=== PATIENT | male | born 1955 | race Caucasian/White ===

== ENCOUNTER 2016-10-11 22:34 | Emergency (ER) | payer MEDICARE, MEDICAID ==
--- NOTE | 2016-10-11 22:42 | ER Document Report ---
ED General - General Stated Complaint: CATHETER PROBLEM Time Seen by Provider: 10/11/16 22:40 Notes: Patient is a 61-year-old male history of quadriplegia and Vyas catheter dependence who presents due to his Vyas catheter being displaced in the nursing facility being unable to replace the catheter. He denies any acute complaints. No abdominal pain, nausea or vomiting. No penile injury or pain. TRAVEL OUTSIDE OF THE [place] IN LAST 30 DAYS: No - Related Data Allergies/Adverse Reactions: Sulfa (Sulfonamide Antibiotics) Allergy (Mild, Verified 07/11/14 14:05) Hives, Itching Past Medical History - General Information source: Patient - Social History Smoking Status: Never Smoker Frequency of alcohol use: None Drug Abuse: None Lives with: [facility] Family History: Reviewed & Not Pertinent - Past Medical History Cardiac Medical History: Denies: Hx Congestive Heart Failure, Hx DVT, Hx Heart Attack, Hx Hypercholesterolemia, Hx Hypertension, Hx Pulmonary Embolism Pulmonary Medical History: Reports: Hx Pneumonia Denies: Hx Asthma, Hx COPD Neurological Medical History: Denies: Hx Cerebrovascular Accident, Hx Seizures Endocrine Medical History: Reports: Hx Diabetes Mellitus Type 2. Denies: Hx Hyperthyroidism, Hx Hypothyroidism Renal/ Medical History: Reports: Hx End Stage Renal Disease - right kidney, chronic UTI GI Medical History: Reports: Hx Gastroesophageal Reflux Disease. Denies: Hx Cirrhosis, Hx Hepatitis, Hx Hiatal Hernia, Hx Ulcer Musculoskeltal Medical History: Denies Hx Arthritis, Reports Hx Muscle Weakness , Reports Hx Musculoskeletal Deformity - Contractures to all four extremities, Reports Hx Musculoskeletal Trauma - Right distal femur condyle fractures Skin Medical History: Reports Hx Psoriasis Psychiatric Medical History: Reports: Hx Depression - mild; no suicidal/ homicidal ideation Traumatic Medical History: Reports: Hx Spine Fracture - Cervical spine fracture in the 1980s Infectious Medical History: Denies: Hx Hepatitis Past Surgical History: Reports: Hx Orthopedic Surgery - Cervical fusion, Hx Urinary Tract Surgery - bladder stent placed and removed. Denies: Hx Open Heart Surgery, Hx Pacemaker - Immunizations Hx Diphtheria, Pertussis, Tetanus Vaccination: Yes Hx Pneumococcal Vaccination: 08/11/13 Review of Systems - Review of Systems Notes: Constitutional: Negative for fever. HENT: Negative for sore throat. Eyes: Negative for visual changes. Cardiovascular: Negative for chest pain. Respiratory: Negative for shortness of breath. Gastrointestinal: Negative for abdominal pain, vomiting or diarrhea. Genitourinary: Positive for Vyas catheter displacement Musculoskeletal: Negative for back pain. Skin: Negative for rash. Neurological: Negative for headaches, weakness or numbness. 10 point ROS negative except as marked above and in HPI. Physical Exam - Vital signs Notes: PHYSICAL EXAMINATION: GENERAL: Well-appearing, well-nourished and in no acute distress. HEAD: Atraumatic, normocephalic. EYES: sclera anicteric, conjunctiva are normal. ENT: Moist mucous membranes. NECK: Normal range of motion LUNGS: Normal work of breathing HEART: 2+ radial pulses bilaterally PSYCH: Normal mood, normal affect. SKIN: Warm, Dry, normal turgor Course - Re-evaluation Re-evalutation: 10/11/16 22:41 Patient presents from a [place] [facility] as they were unable to successfully exchange his Vyas catheter. He denies any acute complaints. Vitals show hypertension at time of arrival are otherwise unremarkable. He has no abdominal pain. Vyas catheter exchanged. He will be discharged back to the nursing facility with return precautions. Discharge - Discharge Clinical Impression: Vyas catheter problem Qualifiers: Encounter type: initial encounter Qualified Code(s): T83.9XXA - Unspecified complication of genitourinary prosthetic device, implant and graft, initial encounter Condition: Good Disposition: HOME, SELF-CARE Additional Instructions: Please return to the emergency room immediately if you experience any concerning symptoms including high fevers, severe headache, chest pain, difficulty breathing, abdominal pain, slurred speech, numbness or weakness in your arms or legs, or any other symptom that concerns you.
== END 2016-10-11 23:18 | disposition home or self-care (01) ==
LOC: ER 22:34
DX: T83.9XXA Unspecified complication of genitourinary prosthetic device, implant and graft, initial encounter (principal)
CPT/HCPCS: 51702; 99283

== ENCOUNTER 2016-11-20 11:24 | Emergency (ER) | payer MEDICARE, MEDICAID ==
[2016-11-20 12:40] LABS: ABSOLUTE EOSINOPHILS # (AUTO) 0.4 10^3/uL (0.0-0.6); ABSOLUTE LYMPHOCYTES (AUTO) 1.4 10^3/uL (0.5-4.7); ABSOLUTE MONOCYTES (AUTO) 0.5 10^3/uL (0.1-1.4); ABSOLUTE NEUT (AUTO) 3.1 10^3/uL (1.7-8.2); BASOPHILS % (AUTO) 0.5 % (0-2); EOSINOPHILS % (AUTO) 6.8 % (0-6); HEMATOCRIT 33.6 % (37.9-51.0); HEMOGLOBIN 10.9 g/dL (13.5-17.0); HGB HCT DIFFERENCE -0.9; LYMPHOCYTES % (AUTO) 26.1 % (13-45); MEAN CORPUSCULAR HEMOGLOBIN 25.2 pg (27.0-33.4); MEAN CORPUSCULAR HGB CONC 32.3 g/dL (32.0-36.0); MEAN CORPUSCULAR VOLUME 78 fl (80-97); MONOCYTES % (AUTO) 8.5 % (3-13); RED BLOOD COUNT 4.32 10^6/uL (4.35-5.55); RED CELL DISTRIBUTION WIDTH 16.7 % (11.5-14.0); SEGMENTED NEUTROPHILS % (AUTO) 58.1 % (42-78); WHITE BLOOD COUNT 5.4 10^3/uL (4.0-10.5)
[2016-11-20 13:07] LABS: ALANINE AMINOTRANSFERASE 24 U/L (21-72); ALBUMIN 3.5 g/dL (3.5-5.0); ALKALINE PHOSPHATASE 97 U/L (38-126); ANION GAP 12 (5-19); ASPARTATE AMINO TRANSFERASE 15 U/L (17-59); BILIRUBIN,DIRECT 0.3 mg/dL (0.0-0.4); BILIRUBIN,TOTAL 0.4 mg/dL (0.2-1.3); BLOOD UREA NITROGEN 18 mg/dL (7-20); CALCIUM 9.5 mg/dL (8.4-10.2); CARBON DIOXIDE 22 mmol/L (22-30); CHLORIDE 107 mmol/L (98-107); CREATININE RESULT 0.89 mg/dL (0.52-1.25); GLUCOSE 271 mg/dL (75-110); POTASSIUM 4.3 mmol/L (3.6-5.0); SODIUM 140.7 mmol/L (137-145); TOTAL PROTEIN 6.9 g/dL (6.3-8.2)
--- NOTE | 2016-11-20 13:46 | ER Document Report ---
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 Patient does have a history of diabetes. He is a resident at [facility] and states that he is usually up watching TV late at night. The staff came in at 5 AM to give him medicines and check vital signs and states that he was "loopy". The patient states that he was still kind of "out of it" when they woke him up at 8 a.m. The patient states he feels fine now and is back to his baseline, he said he was tired this morning and that he did state up late. He denies any pain, fever or shortness of breath. TRAVEL OUTSIDE OF THE [place] IN LAST 30 DAYS: No - HPI Onset: Just prior to arrival Onset/Duration: Gradual Quality of pain: No pain Severity: None Pain Level: Denies Associated symptoms: denies: Chest pain, Fever Exacerbated by: Denies Relieved by: Denies Similar symptoms previously: No Recently seen / treated by doctor: No - Related Data Allergies/Adverse Reactions: Sulfa (Sulfonamide Antibiotics) Allergy (Mild, Verified 11/20/16 11:47) Hives, Itching Home Medications: Current Home Medications Cetirizine HCl [Zyrtec] 10 mg PO DAILY 11/20/16 [History] Lactulose [Cephulac Syrup 20 gm/30 ml Udcup] 15 gm PO QID 11/20/16 [History] Past Medical History - General Information source: Patient - Social History Smoking Status: Never Smoker Cigarette use (# per day): No Chew tobacco use (# tins/day): No Frequency of alcohol use: None Drug Abuse: None Lives with: [facility] Family History: Reviewed & Not Pertinent Patient has suicidal ideation: No Patient has homicidal ideation: No - Past Medical History Cardiac Medical History: Denies: Hx Congestive Heart Failure, Hx DVT, Hx Heart Attack, Hx Hypercholesterolemia, Hx Hypertension, Hx Pulmonary Embolism Pulmonary Medical History: Reports: Hx Pneumonia Denies: Hx Asthma, Hx COPD Neurological Medical History: Denies: Hx Cerebrovascular Accident, Hx Seizures Endocrine Medical History: Reports: Hx Diabetes Mellitus Type 2. Denies: Hx Hyperthyroidism, Hx Hypothyroidism Renal/ Medical History: Reports: Hx End Stage Renal Disease - right kidney, chronic UTI GI Medical History: Reports: Hx Gastroesophageal Reflux Disease. Denies: Hx Cirrhosis, Hx Hepatitis, Hx Hiatal Hernia, Hx Ulcer Musculoskeltal Medical History: Reports Hx Arthritis, Reports Hx Muscle Weakness , Reports Hx Musculoskeletal Deformity - Contractures to all four extremities, Reports Hx Musculoskeletal Trauma - Right distal femur condyle fractures Skin Medical History: Reports Hx Psoriasis Psychiatric Medical History: Reports: Hx Depression - mild; no suicidal/ homicidal ideation Traumatic Medical History: Reports: Hx Spine Fracture - Cervical spine fracture in the 1980s Infectious Medical History: Denies: Hx Hepatitis Past Surgical History: Reports: Hx Orthopedic Surgery - Cervical fusion, Hx Urinary Tract Surgery - bladder stent placed and removed. Denies: Hx Open Heart Surgery, Hx Pacemaker - Immunizations Hx Diphtheria, Pertussis, Tetanus Vaccination: Yes Hx Pneumococcal Vaccination: 08/11/13 Review of Systems - Review of Systems Constitutional: No symptoms reported EENT: No symptoms reported Cardiovascular: No symptoms reported Respiratory: No symptoms reported Gastrointestinal: No symptoms reported Genitourinary: No symptoms reported Male Genitourinary: No symptoms reported Musculoskeletal: No symptoms reported Skin: No symptoms reported Hematologic/Lymphatic: No symptoms reported Neurological/Psychological: See HPI Physical Exam - Vital signs Vitals: Resp 18 11/20/16 11:48 Notes: Physical exam: GENERAL: 61-year-old man, alert and oriented 3, pleasant, no acute distress HEAD: Atraumatic, normocephalic. EYES: Pupils equal round and reactive to light, extraocular movements intact, sclera anicteric, conjunctiva are normal. ENT: TMs normal, nares patent, oropharynx clear without exudates. Moist mucous membranes. NECK: Normal range of motion, supple without lymphadenopathy or JVD. LUNGS: Breath sounds clear to auscultation bilaterally and equal. No wheezes rales or rhonchi. HEART: Regular rate and rhythm without murmurs, rubs or gallops. ABDOMEN: Soft, normoactive bowel sounds. No tenderness to palpation. No guarding, no rebound. No masses appreciated. EXTREMITIES: Normal range of motion, no pitting or edema. No clubbing or cyanosis. NEUROLOGICAL: Incomplete quadriplegia, he does have movement of the left upper extremity, left so in the right upper extremity. PSYCH: Normal mood, normal affect. SKIN: Warm, Dry, normal turgor, no rashes or lesions noted. Course - Vital Signs Vital signs: Temp Pulse Resp BP Pulse Ox 97.3 F 56 L 18 122/82 100 11/20/16 14:22 11/20/16 14:22 11/20/16 14:22 11/20/16 14:22 11/20/16 14:22 - Laboratory Result Diagrams: 11/20/16 12:16 11/20/16 12:16 Laboratory results interpreted by me: 11/20/16 11/20/16 12:16 12:16 RBC 4.32 L Hgb 10.9 L Hct 33.6 L MCV 78 L MCH 25.2 L RDW 16.7 H Eosinophils % 6.8 H Glucose 271 H AST 15 L Discharge - Discharge Clinical Impression: Generalized weakness Condition: Stable Disposition: HOME, SELF-CARE Additional Instructions: Your vital signs have been stable, your heart rhythm has been regular on monitor. Your blood counts, kidney function, electrolytes were normal. Recommendations Current medicines: Return to the emergency room for any pain, shortness of breath or any concerns or to getting worse. Follow-up with your primary care doctor as planned Referrals: WODOY RANKIN MD [Primary Care Provider] - Follow up as needed
[2016-11-20 14:24] VITALS: BP 122/82
== END 2016-11-20 14:56 | disposition home or self-care (01) ==
LOC: ER 11:24
DX: R53.1 Weakness (principal); R42 Dizziness and giddiness; E11.9 Type 2 diabetes mellitus without complications; G82.54 Quadriplegia, C5-C7 incomplete; Z79.899 Other long term (current) drug therapy
CPT/HCPCS: 36415; 80053; 85025; 99285

== ENCOUNTER 2019-08-16 07:02 | Observation (INO) | payer MEDICARE, MEDICAID ==
--- NOTE | 2019-08-16 07:22 | ER Document Report ---
ED Neuro Symptoms/Deficit - General Chief Complaint: Altered Mental Status Stated Complaint: ALTERED MENTAL STATUS Time Seen by Provider: 08/16/19 07:12 Primary Care Provider: IVELISSE RANKIN MD [Primary Care Provider] - Follow up as needed Notes: HPI: 63-year-old male who presents today from [facility] secondary to an episode last evening where he was slightly "altered" for an unknown amount of time according to EMS. Supposedly this repeated this morning. Patient has been nonverbal since this morning. Unknown time of onset. EMS denies any mention of nausea, vomiting, fevers, or diarrhea. Patient does not walk at baseline. History of a stroke with right-sided weakness. Patient has a Vyas catheter at baseline. Patient supposedly is full code. I was able to call the [facility] care [facility] and speak to 1 of the care provider Yana. They state that supposedly sometime between 3 and 11 yesterday he started to have some "flailing motion" of his left arm and was not speaking. This supposedly "spontaneously resolved". Patient had his eyes open with no obvious loss of consciousness during the event. He was last known well again around 2 AM and then this morning when they went to give him medications he again was not speaking. Patient normally is able to hold a conversation according to staff but does not walk at baseline with some right-sided weakness. They state the patient has had no fevers, vomiting, or diarrhea. ROS: See HPI All other review of systems reviewed and otherwise negative Reviewed vital signs and nursing note as charted by RN. PHYSICAL EXAM: CONSTITUTIONAL: Alert but responds only in one-word answers HEAD: Normocephalic; atraumatic EYES: PERRL; full extraocular range of motion ENT: Normal nose; no rhinorrhea; moist mucous membranes; pharynx without lesions noted NECK: Supple without meningismus; carotid bruit; non-tender; no cervical lymphadenopathy, no masses CARD: Regular rate and rhythm; no murmurs; symmetric distal pulses RESP: Normal chest excursion without splinting or tachypnea; breath sounds clear and equal bilaterally; no wheezes, no rhonchi, no rales ABD/GI: Normal bowel sounds; non-distended; soft, non-tender; no palpable organomegaly or masses BACK: The back appears normal and is non-tender to palpation; patient has minimal skin breakdown around the lumbar region with minimal surrounding erythema EXT: Right arm is contracted; 1+ pitting edema to bilateral shins with heel cups in place with no appreciable skin breakdown SKIN: Mild scrotal erythema with no perineal induration or fluctuance NEURO: Difficult to get a complete neuro exam given that the patient does not follow commands. Patient's right arm is contracted. No obvious movement of the right lower extremity. Patient is able to move his left arm in all directions with no obvious weakness appreciated. Patient is able to lift his left leg secondary to pain but again does not follow commands appropriately PSYCH: The patient's mood and manner are appropriate. Grooming and personal hygiene are appropriate. TRAVEL OUTSIDE OF THE [place] IN LAST 30 DAYS: No - Related Data Allergies/Adverse Reactions: Sulfa (Sulfonamide Antibiotics) Allergy (Mild, Verified 11/20/16 11:47) Hives, Itching Past Medical History - Social History Smoking Status: Unknown if Ever Smoked Family History: Reviewed & Not Pertinent - Past Medical History Cardiac Medical History: Denies: Hx Congestive Heart Failure, Hx DVT, Hx Heart Attack, Hx Hypercholest erolemia, Hx Hypertension, Hx Pulmonary Embolism Pulmonary Medical History: Reports: Hx Pneumonia Denies: Hx Asthma, Hx COPD Neurological Medical History: Denies: Hx Cerebrovascular Accident, Hx Seizures Endocrine Medical History: Reports: Hx Diabetes Mellitus Type 2. Denies: Hx Hyperthyroidism, Hx Hypothyroidism Renal/ Medical History: Reports: Hx End Stage Renal Disease - right kidney, chronic UTI GI Medical History: Reports: Hx Gastroesophageal Reflux Disease. Denies: Hx Cirrhosis, Hx Hepatitis, Hx Hiatal Hernia, Hx Ulcer Musculoskeletal Medical History: Reports Hx Arthritis, Reports Hx Muscle Weakness, Reports Hx Musculoskeletal Deformity - Contractures to all four extremities, Reports Hx Musculoskeletal Trauma - Right distal femur condyle fractures Skin Medical History: Reports Hx Psoriasis Psychiatric Medical History: Reports: Hx Depression - mild; no suicidal/homicidal ideation Traumatic Medical History: Reports: Hx Spine Fracture - Cervical spine fracture in the 1980s Infectious Medical History: Denies: Hx Hepatitis Past Surgical History: Reports: Hx Orthopedic Surgery - Cervical fusion, Hx Urin cahd Tract Surgery - bladder stent placed and removed. Denies: Hx Open Heart Surgery, Hx Pacemaker - Immunizations Hx Diphtheria, Pertussis, Tetanus Vaccination: Yes Hx Pneumococcal Vaccination: 08/11/13 Physical Exam - Vital signs Vitals: Temp Pulse Resp BP Pulse Ox 98.1 F 69 20 107/65 95 08/16/19 07:07 08/16/19 07:07 08/16/19 07:07 08/16/19 07:07 08/16/19 07:07 Course - Re-evaluation Re-evalutation: 08/16/19 07:21 Given the above history and physical examination, we will proceed with a stat CT scan/code stroke as well as obtain basic labs, EKG, cardiac labs, and a t roponin. Patient appears to have a modified Kathy scale score of 4-5. Patient's NIH score upon arrival is 21/22. Labs, EKG, coagulation profile, and stat CT scan has been ordered. Given the modified Kathy scale score as discussed above, with the patient being out of the TPA window given that the patient's symptoms started intermittently between 3 PM and 11 PM yesterday, we will assess the CT scan for an obvious bleed or other acute intracranial pathology. Given the modified Gooding scale score, despite being here possibly within 22 hours, I do believe the patient is not a good candidate for extraction and I do not believe CTA of the head and cervical neck would be appropriate at this time. 08/16/19 07:44 EKG shows heart of 62, normal sinus rhythm, normal axis, no ST elevation or d epression 08/16/19 09:04 No change in neurologic status. We have provided rectal aspirin. Chemistry is pending. CT scan report as recorded. We will attempt to evaluate the chemistry and if unremarkable, will discuss with the hospitalist and the power of erisa attorney placement and disposition. I do believe that the patient requires admission but I am unsure whether it is necessary given the patient's baseline state to send to an outside stroke center whether the patient can be cared for you ukldeep ropriately. 08/16/19 10:24 I have called and spoken to the power of erisa attorney Mrs. Carrie Sotelo at [phone]. This is the patient's sister. I explained the full history and physical. She is comfortable with the patient staying at this location. - Vital Signs Vital signs: Temp Pulse Resp BP Pulse Ox 97.5 F 60 9 L 97/59 L 95 08/16/19 07:40 08/16/19 07:11 08/16/19 09:46 08/16/19 09:46 08/16/19 09:46 - Laboratory Result Diagrams: 08/16/19 07:55 08/16/19 07:55 Laboratory results interpreted by me: 08/16/19 08/16/19 08/16/19 07:47 07:55 07:55 Hgb 12.4 L Hct 36.8 L MCV 78 L MCH 26.3 L RDW 16.6 H Lymph % (Auto) 10.2 L Seg Neutrophils % 79.9 H BUN 29 H Glucose 123 H POC Glucose 117 H Discharge - Discharge Clinical Impression: Expressive aphasia Decubitus skin ulcer Qualifiers: Pressure injury location: contiguous region involving back and buttock Pressure injury stage: unstageable Laterality: unspecified laterality Qualified Code(s): L89.45 - Pressure ulcer of contiguous site of back, buttock and hip, unstageable Condition: Fair Disposition: ADMITTED OBSERVATION Admitting Provider: Brooks (Hospitalist) Unit Admitted: Medical Floor Referrals: IVELISSE RANKIN MD [Primary Care Provider] - Follow up as needed
--- NOTE | 2019-08-16 07:55 | RADIOLOGY REPORT (SQ) ---
EXAM DESCRIPTION: CT HEAD WITHOUT IV CONTRAST COMPLETED DATE/TME: 08/16/2019 07:22 CLINICAL HISTORY: MP; aphasia COMPARISON: None available TECHNIQUE: Axial CT of the head obtained from the skull apex to the skull base without contrast. FINDINGS: No acute intracranial hemorrhage identified. No mass, mass effect, shift of the midline, abnormal extra-axial fluid collection or CT evidence of acute ischemic change identified. The ventricular system and sulcal spaces are not enlarged. Scattered areas of hypodensity throughout the supratentorial white matter are nonspecific and may be related to chronic small vessel ischemic change. The visualized paranasal sinuses and the mastoids are clear. No skull fracture identified. Visualized orbits and globes are unremarkable. Atherosclerotic calcification of the intracranial internal carotid arteries. IMPRESSION: 1. No acute intracranial abnormality by CT criteria. This exam was performed according to our departmental dose-optimization program, which includes automated exposure control, adjustment of the mA and/or kV according to patient size and/or use of iterative reconstruction technique.
--- NOTE | 2019-08-16 08:08 | RADIOLOGY REPORT (SQ) ---
EXAM DESCRIPTION: X-ray single view chest. CLINICAL HISTORY: 63 years Male, AMS/SOB COMPARISON: Chest x-ray performed on 10/08/[address] chest performed on 05/27/2014. TECHNIQUE: Single portable x-ray view of the chest performed on 08/16/2019 at 7:27 AM FINDINGS: The lungs are well expanded. There is blunting of the right lateral costophrenic sulcus which may be due to atelectasis or pleural thickening. A small effusion is not excluded. There is mild nonspecific bibasilar interstitial prominence which may be chronic in nature. There is increased lucency in the upper lung zones likely due to emphysema There is no evidence of a pneumothorax. The cardiac silhouette is normal in size and configuration. The mediastinal contours are normal. No acute osseous abnormality is identified. No focal soft tissue abnormalities are seen. Lines and tubes: None. IMPRESSION: 1. Mild bibasilar interstitial prominence likely related to chronic changes. 2. Blunting of the right lateral costophrenic sulcus. Findings may be due to atelectasis or possibly a small effusion. 3. Increased lucency in the upper lung zones likely due to emphysema.
[2019-08-16 08:25] LABS: ABSOLUTE BASOPHILS # (AUTO) 0.1 10^3/uL (0.0-0.2); ABSOLUTE EOSINOPHILS # (AUTO) 0.4 10^3/uL (0.0-0.6); ABSOLUTE MONOCYTES (AUTO) 0.5 10^3/uL (0.1-1.4); ABSOLUTE NEUT (AUTO) 7.7 10^3/uL (1.7-8.2); BASOPHILS % (AUTO) 0.5 % (0-2); EOSINOPHILS % (AUTO) 3.9 % (0-6); HEMATOCRIT 36.8 % (37.9-51.0); HEMOGLOBIN 12.4 g/dL (13.5-17.0); LYMPHOCYTES % (AUTO) 10.2 % (13-45); MEAN CORPUSCULAR HEMOGLOBIN 26.3 pg (27.0-33.4); MEAN CORPUSCULAR HGB CONC 33.7 g/dL (32.0-36.0); MEAN CORPUSCULAR VOLUME 78 fl (80-97); MONOCYTES % (AUTO) 5.5 % (3-13); PLATELET COUNT 180 10^3/uL (150-450); RED BLOOD COUNT 4.72 10^6/uL (4.35-5.55); RED CELL DISTRIBUTION WIDTH 16.6 % (11.5-14.0); SEGMENTED NEUTROPHILS % (AUTO) 79.9 % (42-78); TOTAL CELLS COUNTED % (AUTO) 100 %; WHITE BLOOD COUNT 9.7 10^3/uL (4.0-10.5)
[2019-08-16 08:31] LABS: INTERNATIONAL RATION (INR) 0.98
[2019-08-16] MEDS ORDERED: ASPIRIN 600 MG SUPP, RECTAL PR ONE (08:46)
[2019-08-16 08:49] LABS: ANION GAP 10 (5-19); BLOOD UREA NITROGEN 29 mg/dL (7-20); CALCIUM 9.7 mg/dL (8.4-10.2); CARBON DIOXIDE 23 mmol/L (22-30); CHLORIDE 106 mmol/L (98-107); GLUCOSE 123 mg/dL (75-110); POTASSIUM 4.9 mmol/L (3.6-5.0)
[2019-08-16] MEDS ORDERED: NORMAL SALINE 1000 ML 1,000 ML IV ONE (08:54)
--- NOTE | 2019-08-16 14:04 | RADIOLOGY REPORT (SQ) ---
EXAM DESCRIPTION: MRI HEAD WITHOUT IMAGES COMPLETED DATE/TIME: 08/16/2019 1:51 pm REASON FOR STUDY: MP; expressive aphasia COMPARISON: CT dated 08/16/2019. TECHNIQUE: Multiplanar imaging includes non-contrasted T1, T2, FLAIR, and diffusion with ADC map seq uences. Images stored on PACS. LIMITATIONS: Motion artifact. FINDINGS: ANATOMY: No anomalies. Normal vascular flow voids. Pituitary fossa normal. CSF SPACES: Normal in size and contour. No hemorrhage. CEREBRUM: Sulci and gyri normal in size and contour. Normal white matter signal on FLAIR imaging. No evidence of hemorrhage, mass, or extraaxial fluid collection. POSTERIOR FOSSA: No signal alteration. No hemorrhage. No edema, masses or mass effect. Internal desmond tory canals, cerebello-pontine angles, mastoids normal. DIFFUSION IMAGING: Negative for acute or sub-acute infarction. ORBITS: No masses. Globes normal. PARANASAL SINUSES: No fluid levels. Mucosa normal. OTHER: No other significant finding. IMPRESSION: NORMAL MRI OF THE BRAIN WITHOUT INTRAVENOUS GADOLINIUM CONTRAST. EVIDENCE OF ACUTE STROKE: NO. TECHNICAL DOCUMENTATION: JOB ID: [id number] [employer]- All Rights Reserved Reading location - IP/workstation name: [email or web address]
[2019-08-16] MEDS ORDERED: ACETAMINOPHEN 650 MG SUPP.RECT PR PRN (14:31)
[2019-08-16] MEDS ORDERED: ONDANSETRON HCL INJ/PF 4 MG/2 ML SDV IV PRN (14:31)
[2019-08-16] MEDS ORDERED: DEXTROSE 40% GEL 15 GM TUBE PO PRN ×2 (14:43)
[2019-08-16] MEDS ORDERED: GLUCAGON,HUMAN RECOMB 1 MG INJ IM PRN (14:43)
[2019-08-16] MEDS ORDERED: DEXTROSE 50%-WATER 25 GM/50 ML DISP.SYRIN IV PRN ×2 (14:43)
[2019-08-16] MEDS ORDERED: HYDRALAZINE HCL INJ/PF 20 MG/1 ML SDV IV PRN (14:53)
--- NOTE | 2019-08-16 15:00 | PDOC H&P ---
History of Present Illness Admission Date/PCP: 08/16/19 10:41 IVELISSE RANKIN MD History of Present Illness: KATHERINE GEORGES is a 63 year old male sent over from [facility] for TIA symptoms.. Story to the nurses notes from the care home as well as ER physician yesterday the patient had symptoms that waxed and waned concerning a aphasia.. He would have episodes where he would not be able to speak, and this would clear and resolve. Went on yesterday from around 1500 to 2300 hours. Then once again it started around 0200 hrs. 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 According to patient's next of kin is sister, Carrie, he was conversant however and oriented prior to these events. Now in the emergency room to my examination he was awake alert and asking for blanket because he was cold. He would follow simple commands, name simple objects. Hour later however he was aphasic, with still follow simple commands. Patient CT head scan in the ER was negative patient's MRI scan of the brain was also negative for any acute findings. According to the patient's medical records from the care home patient was taken 81 mg aspirin prior to coming to the ER. Due to patient's potential aspiration p.o. medications will not be given. Patient will be kept on a sliding scale for insulin, she will be given aspirin per rectum, soon as patient is able to take p.o.'s will start Plavix. Symptoms now are almost 24 hours old therefore he is not a candidate for TPA. I have called patient's sister and she would like for him to continue to be a full code at this time. Past Medical History Cardiac Medical History: Denies: Congestive Heart Failure, DVT, Myocardial Infarction, Hyperlipidema, Hypertension, Pulmonary Embolism Pulmonary Medical History: Reports: Pneumonia Denies: Asthma, Chronic Obstructive Pulmonary Disease (COPD) Neurological Medical History: Denies: Seizures Endocrine Medical History: Reports: Diabetes Mellitus Type 2 Denies: Hyperthyroidism, Hypothyroidism Renal/ Medical History: Reports: End Stage Renal Disease - right kidney, chronic UTI GI Medical History: Reports: Gastroesophageal Reflux Disease Denies: Cirrhosis, Hepatitis, Hiatal Hernia Musculoskeltal Medical History: Reports: Arthritis Skin Medical History: Reports: Psoriasis Psychiatric Medical History: Reports: Depression - mild; no suicidal/homicidal ideation Hematology: Reports: Anemia Denies: Sickle Cell Disease Past Surgical History Past Surgical History: Reports: Orthopedic Surgery - Cervical fusion Denies: Pacemaker Social History Smoking Status: Unknown if Ever Smoked Frequency of Alcohol Use: None Hx Recreational Drug Use: No Hx Prescription Drug Abuse: No - Advance Directive Resuscitation Status: Full Code Family History Family History: Reviewed & Not Pertinent Parental Family History Reviewed: No Children Family History Reviewed: No Sibling(s) Family History Reviewed.: No Medication/Allergy Home Medications: Docusate Sodium [Colace 100 mg Capsule] 100 mg PO BID capsule 02/11/16 Cetirizine HCl [Zyrtec] 10 mg PO DAILYP PRN 11/20/16 Acetaminophen [Tylenol] 650 mg PO Q8HP PRN 08/16/19 Ammonium Lactate [Lac-Hydrin 12% Lotion 225Gm/Bottle] 1 applic TP BID 08/16/19 Aspirin [Ecotrin 81 mg EC Tablet] 81 mg PO QAM 08/16/19 Atorvastatin Calcium [Lipitor 20 mg Tablet] 20 mg PO DAILY 08/16/19 Baclofen [Baclofen 20 mg Tablet] 20 mg PO Q8 08/16/19 Fluticasone Propionate [Flonase Nasal [place] 50 Mcg/[place] 16 gm] 1 spray NASL BID 08/16/19 Furosemide [Lasix 20 mg Tablet] 20 mg PO DAILY 08/16/19 Gabapentin 300 mg PO TID 08/16/19 Insulin Detemir [Levemir] 20 units SUBCUT BID 08/16/19 Lidocaine [Aspercreme Lidocaine] 1 patch TP BID 08/16/19 Magnesium Oxide [Mag-Ox 400 mg Tablet] 400 mg PO DAILY 08/16/19 Menthol [Biofreeze] 1 applic TP Q6HP PRN 08/16/19 Metformin HCl [Glucophage 500 mg Tablet] 500 mg PO BID 08/16/19 Omeprazole 20 mg PO BID 08/16/19 Simethicone 125 mg PO Q6HP PRN 08/16/19 Zolpidem Tartrate [Ambien 5 mg Tablet] 10 mg PO QHS PRN 08/16/19 Allergies/Adverse Reactions: Sulfa (Sulfonamide Antibiotics) Allergy (Mild, Verified 11/20/16 11:47) Hives, Itching Review of Systems ROS unobtainable: Due to mental status Physical Exam Vital Signs: Temp Pulse Resp BP Pulse Ox 97.5 F 60 14 141/85 H 95 08/16/19 07:40 08/16/19 07:11 08/16/19 12:01 08/16/19 12:01 08/16/19 12:01 Intake & Output 08/15/19 08/16/19 08/17/19 06:59 06:59 06:59 Intake Total 1000 Balance 1000 Weight 85.6 kg General appearance: PRESENT: no acute distress, other - Patient's neurologic exam waxes and wanes Respiratory exam: PRESENT: clear to auscultation gabe. ABSENT: rales, rhonchi, wheezes Cardiovascular exam: PRESENT: RRR. ABSENT: diastolic murmur, rubs, systolic murmur Extremities exam: PRESENT: other - Contractures of the right upper extremity Neurological exam: PRESENT: alert, awake, aphasic Psychiatric exam: PRESENT: unusual affect - Patient will hold up one finger to command. Earlier patient will answer simple questions, ever now he is unable to speak Results Laboratory Results: 08/16/19 07:55 08/16/19 07:55 08/16/19 08/16/19 08/16/19 07:55 07:55 07:55 WBC 9.7 RBC 4.72 Hgb 12.4 L Hct 36.8 L MCV 78 L MCH 26.3 L MCHC 33.7 RDW 16.6 H Plt Count 180 Seg Neutrophils % 79.9 H Sodium 138.5 Potassium 4.9 Chloride 106 Carbon Dioxide 23 Anion Gap 10 BUN 29 H Creatinine 1.15 Est GFR ( Amer) > 60 Glucose 123 H Calcium 9.7 Urine Color Cancelled Urine Appearance Cancelled Urine pH Cancelled Ur Specific [place] Cancelled Urine Protein Cancelled Urine Glucose (UA) Cancelled Urine Ketones Cancelled Urine Blood Cancelled Urine Nitrite Cancelled Ur Leukocyte Esterase Cancelled Urine WBC (Auto) Cancelled Urine RBC (Auto) Cancelled 08/16/19 07:55 Troponin I < 0.012 Impressions: Chest X-Ray 08/16/19 00:00 IMPRESSION: 1. Mild bibasilar interstitial prominence likely related to chronic changes. 2. Blunting of the right lateral costophrenic sulcus. Findings may be due to atelectasis or possibly a small effusion. 3. Increased lucency in the upper lung zones likely due to emphysema. Head CT 08/16/19 07:22 IMPRESSION: 1. No acute intracranial abnormality by CT criteria. This exam was performed according to our departmental dose-optimization program, which includes automated exposure control, adjustment of the mA and/or kV according to patient size and/or use of iterative reconstruction technique. Head MRI 08/16/19 10:33 IMPRESSION: NORMAL MRI OF THE BRAIN WITHOUT INTRAVENOUS GADOLINIUM CONTRAST. EVIDENCE OF ACUTE STROKE: NO. Assessment and Plan - Diagnosis (1) Diabetes Is this a current diagnosis for this admission?: Yes (2) TIA (transient ischemic attack) Is this a current diagnosis for this admission?: Yes (3) Expressive aphasia Is this a current diagnosis for this admission?: Yes (4) Quadriparesis Is this a current diagnosis for this admission?: Yes (5) Quadriplegia, C5-C7 incomplete Is this a current diagnosis for this admission?: Yes - Plan Summary Summary: Patient will be admitted to the hospital for IV fluids, mechanical soft diet with honey thickened liquids. Speech therapy evaluation. My the brain is negative for acute findings. When patient starts to take p.o.'s will start Plavix. Will prophylactically treat for DVTs, place patient on sliding scale of insulin. Discussed this with his power of lead portfolio manager, his sister. I have asked her about CODE STATUS and she wants him to remain a full code at this time until she can speak with the rest of the family. Normal conditions patient would go back to the care home tomorrow but due to the COVID restrictions he will need to be tested prior to discharge back to [facility]. I see no indications to do carotid Dopplers or echoes, as patient is not a surgical candidate, therefore it would not change treatment plan - Time Time Spent with patient: 25-34 minutes
--- NOTE | 2019-08-16 15:28 | EKG REPORT ---
SEVERITY:- BORDERLINE ECG - SINUS RHYTHM BORDERLINE T ABNORMALITIES, ANT-LAT LEADS : Confirmed by: Hayley Helton MD 16-Aug-2019 15:27:36
[2019-08-16] MEDS ORDERED: GABAPENTIN 100 MG CAPSULE PO SCH (18:00)
[2019-08-16] MEDS: INSULIN LISPRO 100 UNIT/ML 3 ML VIAL SUBCUT SCH ×2 (18:10→22:40)
[2019-08-16] MEDS: METFORMIN HCL 500 MG TABLET PO SCH (18:46)
[2019-08-16] MEDS: DOCUSATE SODIUM 100 MG CAPSULE PO SCH (18:47)
[2019-08-16] MEDS: ENOXAPARIN SODIUM INJ 40 MG/0.4 ML DISP.SYRIN SUBCUT SCH (18:52)
[2019-08-16] MEDS ORDERED: FAMOTIDINE INJ/PF 20 MG/2 ML SDV IV SCH (22:00)
[2019-08-16] MEDS: GABAPENTIN 300 MG CAPSULE PO SCH (22:39)
[2019-08-16] MEDS: ATORVASTATIN CALCIUM 20 MG TABLET PO SCH (22:39)
[2019-08-16] MEDS: FLUTICASONE NASAL SPRAY 50 MCG/SPRY 120 SPRAY/16 GM NASL SCH (22:39)
[2019-08-16] MEDS ORDERED: BACLOFEN 20 MG TABLET ONE (23:19)
[2019-08-16] MEDS: BACLOFEN 20 MG TABLET PO SCH (23:25)
[2019-08-16] MEDS: NORMAL SALINE 1000 ML 1,000 ML IV PRN (23:26)
[2019-08-17] MEDS: ZOLPIDEM TARTRATE 5 MG TABLET PO PRN (01:12)
[2019-08-17] MEDS ORDERED: BACLOFEN 20 MG TABLET ONE (05:23)
[2019-08-17] MEDS: BACLOFEN 20 MG TABLET PO SCH ×3 (05:56→21:30)
[2019-08-17] MEDS: GABAPENTIN 300 MG CAPSULE PO SCH ×3 (05:56→21:29)
[2019-08-17 06:28] LABS: ALBUMIN 3.6 g/dL (3.5-5.0); ALKALINE PHOSPHATASE 64 U/L (38-126); ANION GAP 10 (5-19); ASPARTATE AMINO TRANSFERASE 18 U/L (17-59); BILIRUBIN,TOTAL 0.5 mg/dL (0.2-1.3); BLOOD UREA NITROGEN 23 mg/dL (7-20); CALCIUM 9.1 mg/dL (8.4-10.2); CARBON DIOXIDE 23 mmol/L (22-30); CHLORIDE 104 mmol/L (98-107); GLUCOSE 107 mg/dL (75-110); POTASSIUM 4.3 mmol/L (3.6-5.0); TOTAL PROTEIN 6.9 g/dL (6.3-8.2)
[2019-08-17] MEDS: INSULIN LISPRO 100 UNIT/ML 3 ML VIAL SUBCUT SCH ×4 (07:34→21:23)
[2019-08-17] MEDS ORDERED: ONDANSETRON HCL INJ/PF 4 MG/2 ML SDV IV PRN (08:00)
[2019-08-17] MEDS ORDERED: HYDRALAZINE HCL INJ/PF 20 MG/1 ML SDV IV PRN (08:00)
[2019-08-17] MEDS: DOCUSATE SODIUM 100 MG CAPSULE PO SCH ×2 (09:42→17:14)
[2019-08-17] MEDS: ASPIRIN 81 MG TABLET, ENT COATED PO SCH (09:42)
[2019-08-17] MEDS: FAMOTIDINE 20 MG TABLET PO SCH ×2 (09:42→21:30)
[2019-08-17] MEDS: MAGNESIUM OXIDE 400 MG TABLET PO SCH (09:42)
[2019-08-17] MEDS: ENOXAPARIN SODIUM INJ 40 MG/0.4 ML DISP.SYRIN SUBCUT SCH (09:43)
[2019-08-17] MEDS: METFORMIN HCL 500 MG TABLET PO SCH ×2 (09:43→17:14)
[2019-08-17] MEDS: NORMAL SALINE 1000 ML 1,000 ML IV PRN (09:43)
[2019-08-17] MEDS: FLUTICASONE NASAL SPRAY 50 MCG/SPRY 120 SPRAY/16 GM NASL SCH ×2 (09:43→21:30)
[2019-08-17] MEDS: FUROSEMIDE 20 MG TABLET PO SCH (09:43)
[2019-08-17] MEDS: AMOXICILLIN TR/POT CLAVULANATE 875-125 MG TAB PO SCH (21:29)
[2019-08-17] MEDS: ATORVASTATIN CALCIUM 20 MG TABLET PO SCH (21:30)
[2019-08-18] MEDS: ZOLPIDEM TARTRATE 5 MG TABLET PO PRN ×2 (01:00→23:40)
[2019-08-18] MEDS: BACLOFEN 20 MG TABLET PO SCH ×3 (06:16→21:30)
[2019-08-18] MEDS: GABAPENTIN 300 MG CAPSULE PO SCH ×3 (06:16→21:29)
[2019-08-18 06:48] LABS: CHOLESTEROL 102.64 mg/dL (0-200); TRIGLYCERIDES 131 mg/dL (<150)
[2019-08-18 06:59] LABS: DIRECT LDL 56 mg/dL (<100)
[2019-08-18] MEDS: INSULIN LISPRO 100 UNIT/ML 3 ML VIAL SUBCUT SCH ×4 (07:44→22:54)
[2019-08-18] MEDS: FUROSEMIDE 20 MG TABLET PO SCH (09:44)
[2019-08-18] MEDS: METFORMIN HCL 500 MG TABLET PO SCH ×2 (09:44→17:01)
[2019-08-18] MEDS: CLOPIDOGREL BISULFATE 75 MG TABLET PO SCH (09:44)
[2019-08-18] MEDS: FAMOTIDINE 20 MG TABLET PO SCH ×2 (09:44→21:29)
[2019-08-18] MEDS: ASPIRIN 81 MG TABLET, ENT COATED PO SCH (09:44)
[2019-08-18] MEDS: MAGNESIUM OXIDE 400 MG TABLET PO SCH (09:44)
[2019-08-18] MEDS: AMOXICILLIN TR/POT CLAVULANATE 875-125 MG TAB PO SCH ×2 (09:44→21:29)
[2019-08-18] MEDS: DOCUSATE SODIUM 100 MG CAPSULE PO SCH ×2 (09:45→17:02)
[2019-08-18] MEDS: ENOXAPARIN SODIUM INJ 40 MG/0.4 ML DISP.SYRIN SUBCUT SCH (09:45)
[2019-08-18] MEDS: FLUTICASONE NASAL SPRAY 50 MCG/SPRY 120 SPRAY/16 GM NASL SCH ×2 (09:45→21:31)
[2019-08-18] MEDS ORDERED: ACETAMINOPHEN 325 MG TABLET PO PRN (20:18)
[2019-08-18] MEDS: ATORVASTATIN CALCIUM 20 MG TABLET PO SCH (21:30)
[2019-08-19] MEDS: BACLOFEN 20 MG TABLET PO SCH ×3 (05:33→21:22)
[2019-08-19] MEDS: GABAPENTIN 300 MG CAPSULE PO SCH ×3 (05:33→21:22)
[2019-08-19] MEDS: FAMOTIDINE 20 MG TABLET PO SCH ×2 (09:12→21:22)
[2019-08-19] MEDS: AMOXICILLIN TR/POT CLAVULANATE 875-125 MG TAB PO SCH ×2 (09:12→21:22)
[2019-08-19] MEDS: ASPIRIN 81 MG TABLET, ENT COATED PO SCH (09:12)
[2019-08-19] MEDS: MAGNESIUM OXIDE 400 MG TABLET PO SCH (09:12)
[2019-08-19] MEDS: CLOPIDOGREL BISULFATE 75 MG TABLET PO SCH (09:12)
[2019-08-19] MEDS: DOCUSATE SODIUM 100 MG CAPSULE PO SCH ×2 (09:12→17:08)
[2019-08-19] MEDS: INSULIN LISPRO 100 UNIT/ML 3 ML VIAL SUBCUT SCH ×4 (09:13→21:26)
[2019-08-19] MEDS: FUROSEMIDE 20 MG TABLET PO SCH (09:13)
[2019-08-19] MEDS: ENOXAPARIN SODIUM INJ 40 MG/0.4 ML DISP.SYRIN SUBCUT SCH (09:13)
[2019-08-19] MEDS: METFORMIN HCL 500 MG TABLET PO SCH ×2 (09:13→17:08)
[2019-08-19] MEDS: FLUTICASONE NASAL SPRAY 50 MCG/SPRY 120 SPRAY/16 GM NASL SCH ×2 (09:27→21:23)
--- NOTE | 2019-08-19 11:59 | PDOC PROGRESS REPORT ---
Subjective Progress Note for:: 08/18/19 Reason For Visit: TIA,GROSS OF APHASIA,ALTERED MENTAL STATUS, Note for 08/18/2019 Patient admitted for TIA and altered mental status Physical Exam Vital Signs: Temp Pulse Resp BP Pulse Ox 97.5 F 76 20 119/64 91 L 08/19/19 07:20 08/19/19 07:20 08/19/19 07:20 08/19/19 07:20 08/19/19 07:20 Intake & Output 08/18/19 08/19/19 08/20/19 06:59 06:59 06:59 Intake Total 3243 1920 Output Total 3222 9645 Balance 18 -905 Weight 85.2 kg 81.2 kg General appearance: PRESENT: no acute distress Respiratory exam: PRESENT: clear to auscultation gabe. ABSENT: rales, rhonchi, wheezes Cardiovascular exam: PRESENT: RRR. ABSENT: diastolic murmur, rubs, systolic murmur Neurological exam: PRESENT: alert, awake, oriented to person, oriented to place, oriented to time, oriented to situation, CN II-XII grossly intact. ABSENT: motor sensory deficit Psychiatric exam: PRESENT: appropriate affect, normal mood. ABSENT: homicidal ideation, suicidal ideation Results Laboratory Results: 08/16/19 07:55 08/17/19 05:49 08/16/19 07:55 Catheterized Urine Urine Culture - Final Escherichia Coli Staphylococcus Aureus 08/16/19 07:55 Troponin I < 0.012 Impressions: Chest X-Ray 08/16/19 00:00 IMPRESSION: 1. Mild bibasilar interstitial prominence likely related to chronic changes. 2. Blunting of the right lateral costophrenic sulcus. Findings may be due to atelectasis or possibly a small effusion. 3. Increased lucency in the upper lung zones likely due to emphysema. Head CT 08/16/19 07:22 IMPRESSION: 1. No acute intracranial abnormality by CT criteria. This exam was performed according to our departmental dose-optimization program, which includes automated exposure control, adjustment of the mA and/or kV according to patient size and/or use of iterative reconstruction technique. Head MRI 08/16/19 10:33 IMPRESSION: NORMAL MRI OF THE BRAIN WITHOUT INTRAVENOUS GADOLINIUM CONTRAST. EVIDENCE OF ACUTE STROKE: NO. Assessment and Plan - Diagnosis (1) Diabetes Is this a current diagnosis for this admission?: Yes (2) TIA (transient ischemic attack) Is this a current diagnosis for this admission?: Yes (3) Expressive aphasia Is this a current diagnosis for this admission?: Yes (4) Quadriparesis Is this a current diagnosis for this admission?: Yes (5) Quadriplegia, C5-C7 incomplete Is this a current diagnosis for this admission?: Yes - Plan Summary Summary: Patient will be admitted to the hospital for IV fluids, mechanical soft diet with honey thickened liquids. Speech therapy evaluation. My the brain is negative for acute findings. When patient starts to take p.o.'s will start Plavix. Will prophylactically treat for DVTs, place patient on sliding scale of insulin. Discussed this with his power of attorney law clerk, his sister. I have asked her about CODE STATUS and she wants him to remain a full code at this time until she can speak with the rest of the family. Normal conditions patient would go back to the care home tomorrow but due to the COVID restrictions he will need to be tested prior to discharge back to [facility]. I see no indications to do carotid Dopplers or echoes, as patient is not a surgical candidate, therefore it would not change treatment plan Progress note for 08/18/2019 Vital signs are stable Patient is awake alert and back to his baseline We carried on a normal conversation today is very alert oriented very pleasant, to return back to senior living facility where he really wants to go. He is lived there for 4 years and really would like to go back as soon as possible - Time Time Spent with patient: 15-24 minutes
--- NOTE | 2019-08-19 12:18 | PDOC TRANSFER SUMMARY ---
Impression - Admit/DC Date/PCP Admission Date/Primary Care Provider: 08/16/19 10:41 IVELISSE RANKIN MD Discharge Date: 08/19/19 - Discharge Diagnosis (1) Diabetes Is this a current diagnosis for this admission?: Yes (2) TIA (transient ischemic attack) Is this a current diagnosis for this admission?: Yes (3) Expressive aphasia Is this a current diagnosis for this admission?: Yes (4) Quadriparesis Is this a current diagnosis for this admission?: Yes (5) Quadriplegia, C5-C7 incomplete Is this a current diagnosis for this admission?: Yes - Assessment Summary: Patient will be admitted to the hospital for IV fluids, mechanical soft diet with honey thickened liquids. Speech therapy evaluation. My the brain is negative for acute findings. When patient starts to take p.o.'s will start Plavix. Will prophylactically treat for DVTs, place patient on sliding scale of insulin. Discussed this with his power of city attorney, his sister. I have asked her about CODE STATUS and she wants him to remain a full code at this time until she can speak with the rest of the family. Normal conditions patient would go back to the detention tomorrow but due to the COVID restrictions he will need to be tested prior to discharge back to [facility]. I see no indications to do carotid Dopplers or echoes, as patient is not a surgical candidate, therefore it would not change treatment plan Progress note for 08/18/2019 Vital signs are stable Patient is awake alert and back to his baseline We carried on a normal conversation today is very alert oriented very pleasant, to return [facility] to [facility]. He is lived there for 4 years and really would like to go back as soon as possible 08/19/2019 Patient is medically stable to go back to [facility] TIA has resolved completely We will go back on Plavix in addition to his daily aspirin and also on a course of Augmentin for his UTI. Patient is allergic to Bactrim Patient is medically stable for discharge - Additional Information Resuscitation Status: Full Code Referrals: [facility] [Outside] (PATIENT WILL BE FOLLOWED BY [facility] DEPT. UPON D/C ON SELF QUARANTINE. ONCE CLEARED BY THEM PATIENT MAY MAKE A FOLLOW UP APPT. WITH PCP.) IVELISSE RANKIN MD [Primary Care Provider] - Follow up as needed Home Medications: Docusate Sodium [Colace 100 mg Capsule] 100 mg PO BID capsule 02/11/16 Cetirizine HCl [Zyrtec] 10 mg PO DAILYP PRN 11/20/16 Acetaminophen [Tylenol] 650 mg PO Q8HP PRN 08/16/19 Ammonium Lactate [Lac-Hydrin 12% Lotion 225Gm/Bottle] 1 applic TP BID 08/16/19 Aspirin [Ecotrin 81 mg EC Tablet] 81 mg PO QAM 08/16/19 Atorvastatin Calcium [Lipitor 20 mg Tablet] 20 mg PO DAILY 08/16/19 Baclofen [Baclofen 20 mg Tablet] 20 mg PO Q8 08/16/19 Fluticasone Propionate [Flonase Nasal [place] 50 Mcg/[place] 16 gm] 1 spray NASL BID 08/16/19 Furosemide [Lasix 20 mg Tablet] 20 mg PO DAILY 08/16/19 Gabapentin 300 mg PO TID 08/16/19 Insulin Detemir [Levemir] 20 units SUBCUT BID 08/16/19 Lidocaine [Aspercreme Lidocaine] 1 patch TP BID 08/16/19 Magnesium Oxide [Mag-Ox 400 mg Tablet] 400 mg PO DAILY 08/16/19 Menthol [Biofreeze] 1 applic TP Q6HP PRN 08/16/19 Metformin HCl [Glucophage 500 mg Tablet] 500 mg PO BID 08/16/19 Omeprazole 20 mg PO BID 08/16/19 Simethicone 125 mg PO Q6HP PRN 08/16/19 Zolpidem Tartrate [Ambien 5 mg Tablet] 10 mg PO QHS PRN 08/16/19 History of Present Illiness History of Present Illness: KATHERINE GEORGES is a 63 year old male sent over from [facility] for TIA symptoms.. [place] to the nurses notes from the detention as well as ER physician yesterday the patient had symptoms that waxed and waned concerning a aphasia.. He would have episodes where he would not be able to speak, and this would clear and resolve. Went on yesterday from around 1500 to 2300 hours. Then once again it started around 0200 hrs. 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 According to patient's next of kin is sister, Carrie, he was conversant however and oriented prior to these events. Now in the emergency room to my examination he was awake alert and asking for blanket because he was cold. He would follow simple commands, name simple objects. Hour later however he was aphasic, with still follow simple commands. Patient CT head scan in the ER was negative patient's MRI scan of the brain was also negative for any acute findings. According to the patient's medical records from the detention patient was taken 81 mg aspirin prior to coming to the ER. Due to patient's potential aspiration p.o. medications will not be given. Patient will be kept on a sliding scale for insulin, she will be given aspirin per rectum, soon as patient is able to take p.o.'s will start Plavix. Symptoms now are almost 24 hours old therefore he is not a candidate for TPA. I have called patient's sister and she would like for him to continue to be a full code at this time. Physical Exam Vital Signs: Temp Pulse Resp BP Pulse Ox 97.5 F 76 20 119/64 91 L 08/19/19 07:20 08/19/19 07:20 08/19/19 07:20 08/19/19 07:20 08/19/19 07:20 Intake & Output 08/18/19 08/19/19 08/20/19 06:59 06:59 06:59 Intake Total 3243 1920 Output Total 3225 2825 Balance 18 -905 Weight 85.2 kg 81.2 kg Results Laboratory Results: WBC 9.7 10^3/uL (4.0-10.5) 08/16/19 07:55 RBC 4.72 10^6/uL (4.35-5.55) 08/16/19 07:55 Hgb 12.4 g/dL (13.5-17.0) L 08/16/19 07:55 Hct 36.8 % (37.9-51.0) L 08/16/19 07:55 MCV 78 fl (80-97) L 08/16/19 07:55 MCH 26.3 pg (27.0-33.4) L 08/16/19 07:55 MCHC 33.7 g/dL (32.0-36.0) 08/16/19 07:55 RDW 16.6 % (11.5-14.0) H 08/16/19 07:55 Plt Count 180 10^3/uL (150-450) 08/16/19 07:55 Lymph % (Auto) 10.2 % (13-45) L 08/16/19 07:55 [place] % (Auto) 5.5 % (3-13) 08/16/19 07:55 Eos % (Auto) 3.9 % (0-6) 08/16/19 07:55 Baso % (Auto) 0.5 % (0-2) 08/16/19 07:55 Absolute Neuts (auto) 7.7 10^3/uL (1.7-8.2) 08/16/19 07:55 Absolute Lymphs (auto) 1.0 10^3/uL (0.5-4.7) 08/16/19 07:55 Absolute Monos (auto) 0.5 10^3/uL (0.1-1.4) 08/16/19 07:55 Absolute Eos (auto) 0.4 10^3/uL (0.0-0.6) 08/16/19 07:55 Absolute Basos (auto) 0.1 10^3/uL (0.0-0.2) 08/16/19 07:55 Seg Neutrophils % 79.9 % (42-78) H 08/16/19 07:55 PT 13.0 SEC (11.4-15.4) 08/16/19 07:55 INR 0.98 08/16/19 07:55 Sodium 137.4 mmol/L (137-145) 08/17/19 05:49 Potassium 4.3 mmol/L (3.6-5.0) 08/17/19 05:49 Chloride 104 mmol/L (98-107) 08/17/19 05:49 Carbon Dioxide 23 mmol/L (22-30) 08/17/19 05:49 Anion Gap 10 (5-19) 08/17/19 05:49 BUN 23 mg/dL (7-20) H 08/17/19 05:49 Creatinine 0.79 mg/dL (0.52-1.25) 08/17/19 05:49 Est GFR ( Amer) > 60 (>60) 08/17/19 05:49 Est GFR (MDRD) Non-Af > 60 (>60) 08/17/19 05:49 Glucose 107 mg/dL (75-110) 08/17/19 05:49 POC Glucose 98 mg/dL (70-110) 08/19/19 11:22 Hemoglobin A1c % 6.1 % (4.7-6.0) H 08/17/19 05:49 Calcium 9.1 mg/dL (8.4-10.2) 08/17/19 05:49 Magnesium 2.0 mg/dL (1.6-2.3) 08/17/19 05:49 Total Bilirubin 0.5 mg/dL (0.2-1.3) 08/17/19 05:49 Direct Bilirubin 0.0 mg/dL (0.0-0.4) 08/17/19 05:49 Neonat Total Bilirubin Not Reportable 08/17/19 05:49 Neonat Direct Bilirubin Not Reportable 08/17/19 05:49 Neonat Indirect Bili Not Reportable 08/17/19 05:49 AST 18 U/L (17-59) 08/17/19 05:49 ALT 12 U/L (<50) 08/17/19 05:49 Alkaline Phosphatase 64 U/L (38-126) 08/17/19 05:49 Troponin I < 0.012 ng/mL 08/16/19 07:55 Total Protein 6.9 g/dL (6.3-8.2) 08/17/19 05:49 Albumin 3.6 g/dL (3.5-5.0) 08/17/19 05:49 Triglycerides 131 mg/dL (<150) 08/18/19 06:03 Cholesterol 102.64 mg/dL (0-200) 08/18/19 06:03 LDL Cholesterol Direct 56 mg/dL (<100) 08/18/19 06:03 VLDL Cholesterol 26.0 mg/dL (10-31) 08/18/19 06:03 HDL Cholesterol 24 mg/dL (>40) L 08/18/19 06:03 Urine Color Cancelled 08/16/19 07:55 Urine Appearance Cancelled 08/16/19 07:55 Urine pH Cancelled 08/16/19 07:55 Ur Specific [place] Cancelled 08/16/19 07:55 Urine Protein Cancelled 08/16/19 07:55 Urine Glucose (UA) Cancelled 08/16/19 07:55 Urine Ketones Cancelled 08/16/19 07:55 Urine Blood Cancelled 08/16/19 07:55 Urine Nitrite Cancelled 08/16/19 07:55 Urine Bilirubin Cancelled 08/16/19 07:55 Urine Urobilinogen Cancelled 08/16/19 07:55 Ur Leukocyte Esterase Cancelled 08/16/19 07:55 Urine WBC (Auto) Cancelled 08/16/19 07:55 Urine RBC (Auto) Cancelled 08/16/19 07:55 U Hyaline Cast (Auto) Cancelled 08/16/19 07:55 Urine Bacteria (Auto) Cancelled 08/16/19 07:55 Urine Red Cell Clumps Cancelled 08/16/19 07:55 Urine WBC Clumps Cancelled 08/16/19 07:55 Squamous Epi Cells Auto Cancelled 08/16/19 07:55 U Non-Squamous Epis Auto Cancelled 08/16/19 07:55 Calcium Carbonate Cryst Cancelled 08/16/19 07:55 Calcium Phosphate Cryst Cancelled 08/16/19 07:55 Calcium Oxalate Cr Auto Cancelled 08/16/19 07:55 Leucine Crystals Cancelled 08/16/19 07:55 Cystine Crystals Cancelled 08/16/19 07:55 Uric Acid Cryst (Auto) Cancelled 08/16/19 07:55 Triple Phos Cryst (Auto) Cancelled 08/16/19 07:55 Tyrosine Crystals Cancelled 08/16/19 07:55 Amorphous Sediment Auto Cancelled 08/16/19 07:55 Cellular Casts Cancelled 08/16/19 07:55 Epithelial Casts (Auto) Cancelled 08/16/19 07:55 Fatty Casts Cancelled 08/16/19 07:55 Granular Casts (Auto) Cancelled 08/16/19 07:55 Waxy Casts (Auto) Cancelled 08/16/19 07:55 Broad Casts Cancelled 08/16/19 07:55 RBC Casts (Auto) Cancelled 08/16/19 07:55 WBC Casts (Auto) Cancelled 08/16/19 07:55 Urine Mucus (Auto) Cancelled 08/16/19 07:55 U Trichomonas (Auto) Cancelled 04/28/20 07:55 Ur Yeast w Hyphae Cancelled 08/16/19 07:55 Urine Yeast (Budding) Cancelled 08/16/19 07:55 Urine Ascorbic Acid Cancelled 08/16/19 07:55 COVID-19 Source NASOPHARYNGEAL 08/17/19 00:10 COVID-19 (DENIZ) NOT DETECTED 08/17/19 00:10 08/16/19 07:55 Troponin I < 0.012 Impressions: Chest X-Ray 08/16/19 00:00 IMPRESSION: 1. Mild bibasilar interstitial prominence likely related to chronic changes. 2. Blunting of the right lateral costophrenic sulcus. Findings may be due to atelectasis or possibly a small effusion. 3. Increased lucency in the upper lung zones likely due to emphysema. Head CT 08/16/19 07:22 IMPRESSION: 1. No acute intracranial abnormality by CT criteria. This exam was performed according to our departmental dose-optimization program, which includes automated exposure control, adjustment of the mA and/or kV according to patient size and/or use of iterative reconstruction technique. Head MRI 08/16/19 10:33 IMPRESSION: NORMAL MRI OF THE BRAIN WITHOUT INTRAVENOUS GADOLINIUM CONTRAST. EVIDENCE OF ACUTE STROKE: NO. Stroke Is this a Stroke Patient?: No Acute Heart Failure - Is this a Heart Failure Patient?: No
[2019-08-19] MEDS: ATORVASTATIN CALCIUM 20 MG TABLET PO SCH (21:22)
[2019-08-20] MEDS: ZOLPIDEM TARTRATE 5 MG TABLET PO PRN (00:09)
[2019-08-20] MEDS: BACLOFEN 20 MG TABLET PO SCH ×2 (05:08→13:58)
[2019-08-20] MEDS: GABAPENTIN 300 MG CAPSULE PO SCH ×2 (05:08→13:58)
[2019-08-20] MEDS: INSULIN LISPRO 100 UNIT/ML 3 ML VIAL SUBCUT SCH ×2 (07:36→11:35)
[2019-08-20] MEDS: ASPIRIN 81 MG TABLET, ENT COATED PO SCH (08:55)
[2019-08-20] MEDS: MAGNESIUM OXIDE 400 MG TABLET PO SCH (11:08)
[2019-08-20] MEDS: DOCUSATE SODIUM 100 MG CAPSULE PO SCH (11:08)
[2019-08-20] MEDS: METFORMIN HCL 500 MG TABLET PO SCH (11:08)
[2019-08-20] MEDS: FUROSEMIDE 20 MG TABLET PO SCH (11:08)
[2019-08-20] MEDS: AMOXICILLIN TR/POT CLAVULANATE 875-125 MG TAB PO SCH (11:08)
--- NOTE | 2019-08-20 11:08 | Progress Note ---
Provider Note Provider Note: Patient is medically stable with no neurologic deficits. Since urine is growing out E. coli but he is currently on antibiotics, Augmentin. This morning I spoke to the patient we talked for 5 to 10 minutes he is completely awake oriented in no distress Cough no fever no respiratory symptoms I spoke to the group home facility, [facility], spoke to the DON and she is going to review her information concerning Mr. Sotelo and talk to administration about accepting him back into the facility. Stated she would let us know as soon as possible
[2019-08-20] MEDS: CLOPIDOGREL BISULFATE 75 MG TABLET PO SCH (11:09)
[2019-08-20] MEDS: FAMOTIDINE 20 MG TABLET PO SCH (11:09)
[2019-08-20] MEDS: FLUTICASONE NASAL SPRAY 50 MCG/SPRY 120 SPRAY/16 GM NASL SCH (11:09)
[2019-08-20] MEDS: ENOXAPARIN SODIUM INJ 40 MG/0.4 ML DISP.SYRIN SUBCUT SCH (11:10)
[2019-08-20 12:08] VITALS: BP 130/85
== END 2019-08-20 14:45 ==
LOC: ER 07:02 → EH 10:41 → 5 21:52 → 4S 08-18 17:09
PROVIDERS: ADMIT Family Medicine; ATTEND Physician Assistant
DX: G45.9 Transient cerebral ischemic attack, unspecified (principal); R47.01 Aphasia; G82.53 Quadriplegia, C5-C7 complete; N39.0 Urinary tract infection, site not specified; B96.20 Unspecified Escherichia coli [E. coli] as the cause of diseases classified elsewhere; B95.61 Methicillin susceptible Staphylococcus aureus infection as the cause of diseases classified elsewhere; M62.421 Contracture of muscle, right upper arm; S12.9XXS Fracture of neck, unspecified, sequela; X58.XXXS Exposure to other specified factors, sequela; E11.22 Type 2 diabetes mellitus with diabetic chronic kidney disease; N18.6 End stage renal disease; I69.351 Hemiplegia and hemiparesis following cerebral infarction affecting right dominant side; L89.45 Pressure ulcer of contiguous site of back, buttock and hip, unstageable; Z11.59 Encounter for screening for other viral diseases; R29.722 NIHSS score 22; Z88.2 Allergy status to sulfonamides; Z98.1 Arthrodesis status; Z96.0 Presence of urogenital implants; Z79.84 Long term (current) use of oral hypoglycemic drugs
CPT/HCPCS: 93005; 99285; 96360; 36415 ×3; 87086; 82962 ×5; 83735; 85025; 85610; 87088; 80048; 80053; 84484; 87186; 83036; 80061; 70551; 71045; 70450; 93010; U0003; A9270 ×49; J1650 ×5; J7030 ×2; S0028; J3490 ×4; 87635; J1815

== ENCOUNTER 2019-12-31 12:43 | Inpatient (IN) | payer MEDICARE, MEDICAID ==
[2019-12-31] MEDS: NORMAL SALINE 1000 ML 1,000 ML IV PRN ×2 (13:00→13:24)
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
[2019-12-31] MEDS ORDERED: PIPERACILLIN/TAZOBACTAM 3.375 GM VIAL IV ONE (13:11)
[2019-12-31] MEDS ORDERED: VANCOMYCIN HCL INJ 1000 MG VIAL IV ONE (13:11)
[2019-12-31 13:27] LABS: HEMATOCRIT 44.7 % (37.9-51.0); HEMOGLOBIN 14.5 g/dL (13.5-17.0); MEAN CORPUSCULAR HEMOGLOBIN 25.7 pg (27.0-33.4); MEAN CORPUSCULAR HGB CONC 32.3 g/dL (32.0-36.0); MEAN CORPUSCULAR VOLUME 80 fl (80-97); PLATELET COUNT 215 10^3/uL (150-450); RED BLOOD COUNT 5.62 10^6/uL (4.35-5.55); WHITE BLOOD COUNT 22.9 10^3/uL (4.0-10.5)
[2019-12-31 13:29] LABS: INTERNATIONAL RATION (INR) 1.04; PROTHROMBIN TIME 13.8 SEC (11.4-15.4)
[2019-12-31 13:30] LABS: PARTIAL THROMBOPLASTIN TIME 26.5 SEC (23.5-35.8)
[2019-12-31 13:34] LABS: AMORPHOUS SEDIMENT,URINE 1+ /HPF; APPEARANCE,URINE TURBID; BILIRUBIN,URINE NEGATIVE (NEGATIVE); COLOR,URINE YELLOW; GLUCOSE, URINE NEGATIVE (NEGATIVE); KETONES,URINE NEGATIVE (NEGATIVE); LEUKOCYTE ESTERASE,URINE LARGE (NEGATIVE); NITRITE,URINE POSITIVE (NEGATIVE); PROTEIN,URINE >=500 mg/dL (NEGATIVE); TRIPLE PHOSPHATE CRYSTAL,URINE MANY /HPF; UROBILINOGEN,URINE NEGATIVE mg/dL (<2.0)
--- NOTE | 2019-12-31 13:46 | RADIOLOGY REPORT (SQ) ---
EXAM DESCRIPTION: CHEST SINGLE VIEW IMAGES COMPLETED DATE/TIME: 12/31/2019 1:24 pm REASON FOR STUDY: sepsis ms changes COMPARISON: Chest radiograph 08/16/2019 NUMBER OF VIEWS: One view. TECHNIQUE: Single frontal radiographic view of the chest acquired. LIMITATIONS: None. FINDINGS: LUNGS AND PLEURA: Patchy bibasilar opacities with a nodular opacity at the periphery of th e right lung base measuring approximately 1.6 cm. No pleural effusion or pneumothorax. MEDIASTINUM AND HILAR STRUCTURES: No masses. Contour normal. HEART AND VASCULAR STRUCTURES: Heart normal in size. Normal vasculature. BONES: No acute findings. HARDWARE: None in the chest. OTHER: No other significant finding. IMPRESSION: Patchy bibasilar airspace opacities which are suspicious for infection. A 1.6 cm nodula r opacity at the periphery of the right lung base is noted. Recommend radiographic follow-up after a ppropriate treatment interval to document resolution. TECHNICAL DOCUMENTATION: JOB ID: [id number] 2010 [employer]- All Rights Reserved Reading location - IP/workstation name: [email or web address]
[2019-12-31 13:48] LABS: ABSOLUTE LYMPHOCYTES# (MANUAL) 0.7 10^3/uL (0.5-4.7); ABSOLUTE MONOCYTES # (MANUAL) 1.6 10^3/uL (0.1-1.4); ALBUMIN 4.1 g/dL (3.5-5.0); ALKALINE PHOSPHATASE 75 U/L (38-126); ANION GAP 11 (5-19); ASPARTATE AMINO TRANSFERASE 24 U/L (17-59); BAND NEUTROPHILS % (MANUAL) 1 % (3-5); BASOPHILS % (MANUAL) 0 % (0-2); BILIRUBIN,DIRECT 0.3 mg/dL (0.0-0.4); BILIRUBIN,TOTAL 0.7 mg/dL (0.2-1.3); BLOOD UREA NITROGEN 27 mg/dL (7-20); CALCIUM 9.5 mg/dL (8.4-10.2); CARBON DIOXIDE 21 mmol/L (22-30); CHLORIDE 102 mmol/L (98-107); CREATINE KINASE 65 U/L (55-170); EOSINOPHILS % (MANUAL) 0 % (0-6); GLUCOSE 228 mg/dL (75-110); LYMPHOCYTES % (MANUAL) 3 % (13-45); MONOCYTES % (MANUAL) 7 % (3-13); POTASSIUM 5.8 mmol/L (3.6-5.0); SEGMENTED NEUTROPHILS % (MAN) 89 % (42-78); TOTAL CELLS COUNTED 100; TOTAL PROTEIN 7.4 g/dL (6.3-8.2)
[2019-12-31 13:49] LABS: ANISOCYTOSIS 1+; OVALOCYTES 2+; PLATELET COMMENT ADEQUATE
[2019-12-31 14:07] LABS: TROPONIN I 1.3 ng/mL
--- NOTE | 2019-12-31 14:08 | RADIOLOGY REPORT (SQ) ---
EXAM DESCRIPTION: CT HEAD WITHOUT IMAGES COMPLETED DATE/TIME: 12/31/2019 1:58 pm REASON FOR STUDY: sepsis ms changes COMPARISON: 08/16/2019 TECHNIQUE: Axial images acquired through the brain without intravenous contrast. Images reviewed wi th bone, brain and subdural windows. Additional sagittal and coronal reconstructions were generated. Images stored on PACS. All CT scanners at this facility use dose modulation, iterative reconstruction, and/or weight based d osing when appropriate to reduce radiation dose to as low as reasonably achievable (ALARA). [facility]: Dose Right [facility]: CareDose [facility]: Dose Right [facility]: Teradose 4D [facility]: Smart Sensorin RADIATION DOSE: CT Rad equipment meets quality standard of care and radiation dose reduction techniq ues were employed. CTDIvol: 53.2 mGy. DLP: 1017 mGy-cm. mGy. LIMITATIONS: None. FINDINGS: VENTRICLES: Normal size and contour. CEREBRUM: No masses. No hemorrhage. No midline shift. No evidence for acute infarction. Normal gra y/white matter differentiation. No areas of low density in the white matter. CEREBELLUM: No masses. No hemorrhage. No alteration of density. No evidence for acute infarction. EXTRAAXIAL SPACES: No fluid collections. No masses. ORBITS AND GLOBE: No intra- or extraconal masses. Normal contour of globe without masses. CALVARIUM: No fracture. PARANASAL SINUSES: No fluid or mucosal thickening. SOFT TISSUES: No mass or hematoma. OTHER: No other significant finding. IMPRESSION: NORMAL BRAIN CT WITHOUT CONTRAST. EVIDENCE OF ACUTE STROKE: NO. COMMENT: Quality ID # [id number]: Final reports with documentation of one or more dose reduction techniques (e.g., Automated exposure control, adjustment of the mA and/or kV according to patient size, use of iterative reconstruction technique) TECHNICAL DOCUMENTATION: JOB ID: [id number] 2010 [employer]- All Rights Reserved Reading location - IP/workstation name: [email or web address]
[2019-12-31] MEDS ORDERED: ACETAMINOPHEN 325 MG TABLET PO PRN (15:55)
[2019-12-31] MEDS ORDERED: ACETAMINOPHEN 650 MG SUPP.RECT PR PRN (15:55)
[2019-12-31] MEDS ORDERED: NORMAL SALINE 1000 ML 1,000 ML IV PRN (15:55)
[2019-12-31] MEDS ORDERED: ONDANSETRON HCL INJ/PF 4 MG/2 ML SDV IV PRN (16:02)
[2019-12-31] MEDS ORDERED: DEXTROSE 50%-WATER 25 GM/50 ML DISP.SYRIN IV PRN ×2 (16:03)
[2019-12-31] MEDS ORDERED: DEXTROSE 40% GEL 15 GM TUBE PO PRN ×2 (16:03)
[2019-12-31] MEDS ORDERED: GLUCAGON,HUMAN RECOMB 1 MG INJ IM PRN (16:03)
--- NOTE | 2019-12-31 16:41 | PDOC H&P ---
History of Present Illness Admission Date/PCP: FERMIN JOHNSON MD Patient complains of: Altered mental status History of Present Illness: KATHERINE GEORGES is a 64 year old male with history of quadriplegia C5-C7 spinal cord injury, neurogenic bladder, chronic Vyas, diabetes, chronic Vyas, who resides in [facility], presents from half-way for evaluation of altered mental status. Patient is usually able to communicate and carry conversation though it is noted in his med rec that he has history of aphasia, but was noted to become less responsive and confused today. No fever was noted in half-way. EMS was called. Patient was noted to be hypotensive in the ER with systolic blood pressures in the 80s. Lactic acid is also elevated. Patient was fluid resuscitated with 2 L normal saline. According to ER nurse, patient was able to communicate his name and location upon arrival though was altered. During my encounter, patient is very lethargic and not able to engage in any conversation whatsoever. He has received antibiotics in the ER with concerns for severe sepsis from UTI. Past Medical History Cardiac Medical History: Denies: Congestive Heart Failure, DVT, Myocardial Infarction, Hyperlipidema, Hypertension, Pulmonary Embolism Pulmonary Medical History: Reports: Pneumonia Denies: Asthma, Chronic Obstructive Pulmonary Disease (COPD) Neurological Medical History: Denies: Seizures Endocrine Medical History: Reports: Diabetes Mellitus Type 2 Denies: Hyperthyroidism, Hypothyroidism GI Medical History: Reports: Gastroesophageal Reflux Disease Denies: Cirrhosis, Hepatitis, Hiatal Hernia Musculoskeltal Medical History: Reports: Arthritis Skin Medical History: Reports: Psoriasis Psychiatric Medical History: Reports: Depression - mild; no suicidal/homicidal i deation Hematology: Reports: Anemia Denies: Sickle Cell Disease Past Surgical History Past Surgical History: Reports: Orthopedic Surgery - Cervical fusion Denies: Pacemaker Social History Smoking Status: Unknown if Ever Smoked Electronic Cigarette use?: No Frequency of Alcohol Use: None Hx Recreational Drug Use: No Drugs: None Hx Prescription Drug Abuse: No - Advance Directive Resuscitation Status: Full Code Family History Family History: Other - Unable to obtain Parental Family History Reviewed: No - Unable to obtain due to mental status Children Family History Reviewed: NA Sibling(s) Family History Reviewed.: NA Medication/Allergy Home Medications: Docusate Sodium [Colace 100 mg Capsule] 100 mg PO BID capsule 02/11/16 Cetirizine HCl [Zyrtec] 10 mg PO DAILYP PRN 11/20/16 Acetaminophen [Tylenol] 650 mg PO Q8HP PRN 08/16/19 Ammonium Lactate [Lac-Hydrin 12% Lotion 225Gm/Bottle] 1 applic TP BID 08/16/19 Aspirin [Ecotrin 81 mg EC Tablet] 81 mg PO QAM 08/16/19 Atorvastatin Calcium [Lipitor 20 mg Tablet] 20 mg PO DAILY 08/16/19 Baclofen [Baclofen 20 mg Tablet] 20 mg PO Q8 08/16/19 Fluticasone Propionate [Flonase Nasal Phoenix 50 Mcg/[place]enix 16 gm] 1 spray NASL BID 08/16/19 Furosemide [Lasix 20 mg Tablet] 20 mg PO DAILY 08/16/19 Gabapentin 300 mg PO TID 08/16/19 Insulin Detemir [Levemir] 20 units SUBCUT BID 08/16/19 Magnesium Oxide [Mag-Ox 400 mg Tablet] 400 mg PO DAILY 08/16/19 Menthol [Biofreeze] 1 applic TP Q6HP PRN 08/16/19 Metformin HCl [Glucophage 500 mg Tablet] 500 mg PO BID 08/16/19 Simethicone 125 mg PO Q6HP PRN 08/16/19 Clopidogrel Bisulfate [Plavix 75 mg Tablet] 75 mg PO DAILY 30 Days #30 tablet 08/20/19 Capsaicin [Zostrix 0.025% Cream 60 gm] 1 applic TOP Q8 12/31/19 Ciclopirox/Skin Cleanser No.40 [Loprox 0.77% Suspension Kit] 1 applic TOP DAILY 12/31/19 Famotidine [Pepcid 20 mg Tablet] 20 mg PO BID 12/31/19 Lidocaine HCl [Aspercreme Lidocaine] 1 applic TOP BID 12/31/19 Zolpidem Tartrate [Ambien] 10 mg PO QHS 12/31/19 Allergies/Adverse Reactions: Sulfa (Sulfonamide Antibiotics) Allergy (Mild, Verified 12/31/19 15:23) Hives, Itching Review of Systems ROS unobtainable: Due to mental status Physical Exam Vital Signs: Temp Pulse Resp BP Pulse Ox 98.2 F 100 21 H 85/46 L 88 L 12/31/19 12:43 12/31/19 12:43 12/31/19 12:43 12/31/19 12:43 12/31/19 12:43 Intake & Output 12/30/19 12/31/19 01/01/20 06:59 06:59 06:59 Intake Total 350 Balance 350 Weight 90.3 kg General appearance: PRESENT: mild distress Head exam: PRESENT: normocephalic Eye exam: PRESENT: PERRLA Neck exam: PRESENT: other - Closed tracheostomy tract Respiratory exam: PRESENT: rhonchi, symmetrical, tachypnea, unlabored, other - Upper airway garggles also noted. ABSENT: accessory muscle use, retraction, stridor Cardiovascular exam: PRESENT: +S1, +S2, tachycardia. ABSENT: irregular rhythm GI/Abdominal exam: PRESENT: distended, soft, other - Tense but not overtly rigid without involuntary guarding. ABSENT: rebound, rigid Extremities exam: PRESENT: pedal edema Neurological exam: PRESENT: altered - Patient is very lethargic. Wakes up to noxious stimulus and occasionally to verbal stimulus but drifts back into sleep right away. Not able to engage in any communication, motor sensory deficit - Quadriplegic with contractures Psychiatric exam: ABSENT: agitated, anxious Focused psych exam: ABSENT: pressured speech Skin exam: ABSENT: jaundice Results Laboratory Results: 12/31/19 13:00 12/31/19 13:00 12/31/19 12/31/19 12/31/19 13:00 13:00 13:00 WBC 22.9 H RBC 5.62 H Hgb 14.5 Hct 44.7 MCV 80 MCH 25.7 L MCHC 32.3 RDW 16.0 H Plt Count 215 Seg Neutrophils % Not Reportable Sodium 134.4 L Potassium 5.8 H Chloride 102 Carbon Dioxide 21 L Anion Gap 11 BUN 27 H Creatinine 1.51 H Est GFR ( Amer) 57 L Glucose 228 H Lactic Acid 4.0 H Calcium 9.5 Total Bilirubin 0.7 AST 24 Alkaline Phosphatase 75 Total Protein 7.4 Albumin 4.1 Urine Color Urine Appearance Urine pH Ur Specific Shirley Urine Protein Urine Glucose (UA) Urine Ketones Urine Blood Urine Nitrite Ur Leukocyte Esterase Urine RBC (Auto) 12/31/19 13:00 WBC RBC Hgb Hct MCV MCH MCHC RDW Plt Count Seg Neutrophils % Sodium Potassium Chloride Carbon Dioxide Anion Gap BUN Creatinine Est GFR ( Amer) Glucose Lactic Acid Calcium Total Bilirubin AST Alkaline Phosphatase Total Protein Albumin Urine Color YELLOW Urine Appearance TURBID Urine pH 9.0 Ur Specific Shirley 1.010 Urine Protein >=500 H Urine Glucose (UA) NEGATIVE Urine Ketones NEGATIVE Urine Blood MODERATE H Urine Nitrite POSITIVE H Ur Leukocyte Esterase LARGE H Urine RBC (Auto) 94 12/31/19 12/31/19 13:00 13:00 Creatine Kinase 65 Troponin I 1.300 NT-Pro-B Natriuret Pep 7700 H Impressions: Chest X-Ray 12/31/19 13:10 IMPRESSION: Patchy bibasilar airspace opacities which are suspicious for infection. A 1.6 cm nodular opacity at the periphery of the right lung base is noted. Recommend radiographic follow-up after appropriate treatment interval to document resolution. Head CT 12/31/19 13:10 IMPRESSION: NORMAL BRAIN CT WITHOUT CONTRAST. EVIDENCE OF ACUTE STROKE: NO. Assessment and Plan - Diagnosis (1) Acute metabolic encephalopathy Is this a current diagnosis for this admission?: Yes Plan: Patient is very lethargic and unable to carry on a conversation. Simply drifts back to sleep right away. Possible this is due to severe sepsis. Baseline patient is a quadriplegic with documented history of aphasia but informed the patient is able to talk and respond to questions. Head CT shows no acute findings. Check stat ABG (2) Urinary tract infection Qualifiers: Urinary tract infection type: catheter-associated UTI Indwelling urinary catheter type: indwelling urethral catheter Encounter type: initial encounter Qualified Code(s): T83.511A - Infection and inflammatory reaction due to indwelling urethral catheter, initial encounter; N39.0 - Urinary tract infection, site not specified Is this a current diagnosis for this admission?: Yes Plan: Last time he was in the hospital, urinary culture grew out MSSA and pansensitive E. coli. Given current severe sepsis, will cover with ceftriaxone and vancomycin but will de-escalate therapy once patient improves. (3) Severe sepsis Is this a current diagnosis for this admission?: Yes Plan: Q sofa score of 6 notably with hypotension Likely secondary to UTI Chest x-ray shows interstitial opacities bilaterally but upon my review does not seem all that different from his prior x-ray back in July. Less suspicion for pneumonia Has received 2 L of IV fluids. Will continue on normal saline infusion. Has lactic acidosis of 4. Will repeat lactic acid level. (4) PRATIK (acute kidney injury) Is this a current diagnosis for this admission?: Yes Plan: We will repeat blood work. Creatinine of 1.5 seems to be much higher than his baseline. Likely secondary to sepsis and hypotension. (5) Hypotension Qualifiers: Hypotension type: unspecified hypotension type Qualified Code(s): I95.9 - Hypotension, unspecified Is this a current diagnosis for this admission?: Yes Plan: Resolved with IV fluids. Monitor vital signs closely. Likely associated with sepsis. BNP is elevated and notable cardiomegaly so we have to be cautious about fluid overloading. (6) Elevated troponin Is this a current diagnosis for this admission?: Yes Plan: Patient never noted any chest pain but currently is altered and as such cannot assess if he is having any active chest pain. Troponin is 1.3 which is concerning. EKG reviewed. Discussed with ER to consult cardiology as well. Trend troponin. If trending upwards, then will initiate anticoagulation. (7) Hyperkalemia Is this a current diagnosis for this admission?: Yes Plan: Potassium of 5.8. May be secondary to PRATIK. EKG does not show any changes associated with hyperkalemia. Will repeat stat labs now. If creatinine and potassium are still elevated, will give administer insulin with D50 treatment to prevent worsening. (8) Abdominal distension Is this a current diagnosis for this admission?: Yes Plan: check KUB (9) Quadriplegia, C5-C7 incomplete Is this a current diagnosis for this admission?: Yes (10) Diabetes Is this a current diagnosis for this admission?: Yes Plan: npo for now. On ISS and accucheck q6 - Time Time Spent with patient: 35 or more minutes Anticipated Discharge Disposition: Halfway Facility Anticipated Discharge Timeframe: undetermined
[2019-12-31] MEDS ORDERED: ASPIRIN 300 MG SUPP, RECTAL PR ONE (17:00)
--- NOTE | 2019-12-31 17:00 | RADIOLOGY REPORT (SQ) ---
EXAM DESCRIPTION: KUB/ABDOMEN (SINGLE VIEW) IMAGES COMPLETED DATE/TIME: 12/31/2019 4:51 pm REASON FOR STUDY: abd distention COMPARISON: None. NUMBER OF VIEWS: Two views TECHNIQUE: 2 supine radiographic images of the abdomen acquired. LIMITATIONS: None. FINDINGS: BOWEL GAS PATTERN: Normal bowel gas pattern. No dilated loops. CALCIFICATIONS: No suspicious calcifications. SOFT TISSUES: No gross mass or suggestion of organomegaly. HARDWARE: Numerous surgical clips project over the right hemipelvis. BONES: No acute fracture. No worrisome bone lesions. OTHER: No other significant finding. IMPRESSION: NO RADIOGRAPHIC EVIDENCE FOR ACUTE ABDOMINAL DISEASE. TECHNICAL DOCUMENTATION: JOB ID: [id number] 2010 [employer]- All Rights Reserved Reading location - IP/workstation name: [email or web address]
[2019-12-31 17:14] LABS: ARTERIAL BLOOD H2CO3 1.09 mmol/L (1.05-1.35); ARTERIAL BLOOD O2 SATURATION 58.1 % (94-98); ARTERIAL BLOOD PCO2 36.1 mmHg (35-45); ARTERIAL BLOOD PH 7.34 (7.35-7.45); ARTERIAL BLOOD TOTAL CO2 20.1 mmol/L (23-27)
[2019-12-31] MEDS ORDERED: BUMETANIDE INJ/PF 1 MG/4 ML SDV IV ONE (17:18)
[2019-12-31] MEDS ORDERED: NORMAL SALINE 500 ML IV ONE (17:18)
[2019-12-31 17:41] LABS: ANION GAP 8 (5-19); BLOOD UREA NITROGEN 28 mg/dL (7-20); CALCIUM 8.5 mg/dL (8.4-10.2); CARBON DIOXIDE 20 mmol/L (22-30); CHLORIDE 105 mmol/L (98-107); GLUCOSE 298 mg/dL (75-110)
[2019-12-31 17:46] LABS: POTASSIUM 6.2 mmol/L (3.6-5.0)
[2019-12-31] MEDS: INSULIN LISPRO 100 UNIT/ML 3 ML VIAL SUBCUT SCH (17:50)
[2019-12-31] MEDS ORDERED: DEXTROSE 5%-WATER 250 ML with NOREPINEPHRINE BITARTRATE 4 MG IV PRN ×2 (18:28)
[2019-12-31] MEDS ORDERED: SODIUM POLYSTYRENE SULFONATE 15 GM/60 ML PO ONE (18:28)
[2019-12-31] MEDS ORDERED: LACTULOSE SYRUP 20 GM/30 ML UDCUP PR ONE ×2 (18:30→22:45)
[2019-12-31] MEDS ORDERED: INSULIN REG, HUMAN 100 UNIT/ML 3 ML VIAL (PYX) ONE (18:49)
[2019-12-31] MEDS ORDERED: CALCIUM GLUCONATE 1000 MG/10 ML INJ IV ONE ×2 (19:20→19:30)
[2019-12-31] MEDS ORDERED: DEXTROSE 50%-WATER 25 GM/50 ML DISP.SYRIN IV ONE (19:30)
[2019-12-31] MEDS ORDERED: INSULIN REG, HUMAN 100 UNIT/ML 3 ML VIAL (PYX) IV ONE (19:30)
[2019-12-31] MEDS ORDERED: NORMAL SALINE 1000 ML 500 ML IV ONE (19:50)
[2019-12-31] MEDS ORDERED: HEPARIN SOD (PORCINE) 5,000 UNIT/ML 1 ML VIAL SUBCUT SCH (22:00)
[2019-12-31] MEDS ORDERED: VANCOMYCIN HCL INJ 1000 MG VIAL IV SCH (22:00)
[2019-12-31] MEDS ORDERED: CEFTRIAXONE 2 GM/D5W RTU 2 GM/50 ML RTUPB IV SCH (22:00)
[2019-12-31 22:03] LABS: ANION GAP 9 (5-19); BLOOD UREA NITROGEN 32 mg/dL (7-20); CALCIUM 8.6 mg/dL (8.4-10.2); CARBON DIOXIDE 17 mmol/L (22-30); CHLORIDE 109 mmol/L (98-107); GLUCOSE 179 mg/dL (75-110)
[2019-12-31 22:37] LABS: POTASSIUM 5.2 mmol/L (3.6-5.0)
[2020-01-01] MEDS: INSULIN LISPRO 100 UNIT/ML 3 ML VIAL SUBCUT SCH ×4 (00:46→18:09)
[2020-01-01] MEDS ORDERED: LACTULOSE SYRUP 20 GM/30 ML UDCUP PR ONE (01:15)
[2020-01-01] MEDS ORDERED: LORAZEPAM INJ 2 MG/1 ML VIAL IV PRN ×2 (01:15→18:11)
[2020-01-01] MEDS: VANCOMYCIN HCL 750 MG in DEXTROSE 5%-WATER 250 ML IV SCH ×2 (01:32→15:00)
[2020-01-01 04:33] LABS: APPEARANCE,URINE SLIGHTLY-CLOUDY; BILIRUBIN,URINE NEGATIVE (NEGATIVE); COLOR,URINE RED; GLUCOSE, URINE NEGATIVE (NEGATIVE); KETONES,URINE NEGATIVE (NEGATIVE); PROTEIN,URINE 100 mg/dL (NEGATIVE); UROBILINOGEN,URINE NEGATIVE mg/dL (<2.0)
[2020-01-01] MEDS ORDERED: HALOPERIDOL LACTATE INJ 5 MG/1 ML VIAL IM ONE (05:23)
[2020-01-01 06:37] LABS: ABSOLUTE LYMPHOCYTES (AUTO) 0.5 10^3/uL (0.5-4.7); ABSOLUTE MONOCYTES (AUTO) 0.9 10^3/uL (0.1-1.4); ABSOLUTE NEUT (AUTO) 7.9 10^3/uL (1.7-8.2); BASOPHILS % (AUTO) 0.1 % (0-2); EOSINOPHILS % (AUTO) 0.1 % (0-6); LYMPHOCYTES % (AUTO) 5.8 % (13-45); MEAN CORPUSCULAR HEMOGLOBIN 26.2 pg (27.0-33.4); MEAN CORPUSCULAR HGB CONC 32.9 g/dL (32.0-36.0); MEAN CORPUSCULAR VOLUME 80 fl (80-97); MONOCYTES % (AUTO) 9.2 % (3-13); PLATELET COUNT 141 10^3/uL (150-450); RED BLOOD COUNT 4.52 10^6/uL (4.35-5.55); RED CELL DISTRIBUTION WIDTH 16.1 % (11.5-14.0); SEGMENTED NEUTROPHILS % (AUTO) 84.8 % (42-78); TOTAL CELLS COUNTED % (AUTO) 100 %; WHITE BLOOD COUNT 9.3 10^3/uL (4.0-10.5)
[2020-01-01 06:45] LABS: HEMOGLOBIN 11.8 g/dL (13.5-17.0)
[2020-01-01 06:57] LABS: ALBUMIN 2.7 g/dL (3.5-5.0); ALKALINE PHOSPHATASE 44 U/L (38-126); ANION GAP 11 (5-19); ASPARTATE AMINO TRANSFERASE 23 U/L (17-59); BILIRUBIN,DIRECT 0.3 mg/dL (0.0-0.4); BILIRUBIN,TOTAL 0.6 mg/dL (0.2-1.3); BLOOD UREA NITROGEN 37 mg/dL (7-20); CALCIUM 8.5 mg/dL (8.4-10.2); CARBON DIOXIDE 19 mmol/L (22-30); CHLORIDE 108 mmol/L (98-107); GLUCOSE 207 mg/dL (75-110); POTASSIUM 5.5 mmol/L (3.6-5.0); TOTAL PROTEIN 5.5 g/dL (6.3-8.2)
[2020-01-01] MEDS ORDERED: NORMAL SALINE 1000 ML 1,000 ML IV ONE (08:37)
[2020-01-01] MEDS ORDERED: SODIUM POLYSTYRENE SULFONATE 15 GM/60 ML PO ONE (09:30)
[2020-01-01 13:17] LABS: ANION GAP 8 (5-19); BLOOD UREA NITROGEN 35 mg/dL (7-20); CALCIUM 8.6 mg/dL (8.4-10.2); CARBON DIOXIDE 17 mmol/L (22-30); CHLORIDE 112 mmol/L (98-107); GLUCOSE 157 mg/dL (75-110); POTASSIUM 4.8 mmol/L (3.6-5.0)
[2020-01-01] MEDS ORDERED: CEFEPIME 2 GM/D5W RTU 2 GM/50 ML RTUPB IV SCH (14:30)
[2020-01-01] MEDS: CEFEPIME HCL 2 GM in DEXTROSE 5%-WATER 50 ML IV SCH (18:10)
--- NOTE | 2020-01-01 18:26 | PDOC PROGRESS REPORT ---
Subjective Progress Note for:: 01/01/20 Subjective:: Asked ICU to evaluate patient's yesterday evening. ICU evaluated and recommended for administration of fluids. Patient this morning is awake but still not talking and mumbles. He often got agitated and went back to sleep. In the afternoon he was more awake but still mumbling only sounds. Not able to offer any subjective. Reason For Visit: AMS,SEVERE SEPSIS,PNA?,UTI Physical Exam Vital Signs: Temp Pulse Resp BP Pulse Ox 97.7 F 97 20 110/70 96 01/01/20 15:08 01/01/20 15:08 01/01/20 15:08 01/01/20 15:08 01/01/20 07:23 Intake & Output 12/31/19 01/01/20 01/02/20 06:59 06:59 06:59 Intake Total 1752 1000 Output Total 0 3000 Balance -298 -2000 Weight 87.4 kg General appearance: PRESENT: no acute distress Eye exam: PRESENT: PERRLA Neck exam: ABSENT: JVD Respiratory exam: PRESENT: rhonchi - Mild but significantly improved from yesterday, symmetrical, unlabored. ABSENT: stridor, tachypnea, wheezes Cardiovascular exam: PRESENT: RRR, +S1, +S2. ABSENT: tachycardia GI/Abdominal exam: PRESENT: soft. ABSENT: rebound, rigid, tenderness Neurological exam: PRESENT: alert, awake, motor sensory deficit - Quadriplegic, other - Patient still not communicating and has not said a word. Wakes up much more easily now. Best I have heard is he mumbles sounds.. ABSENT: oriented to person, oriented to place, oriented to time, oriented to situation Psychiatric exam: ABSENT: agitated, anxious Focused psych exam: ABSENT: pressured speech Skin exam: ABSENT: jaundice Results Laboratory Results: 01/01/20 06:12 01/01/20 11:51 12/31/19 12/31/19 01/01/20 21:33 21:33 04:00 WBC RBC Hgb Hct MCV MCH MCHC RDW Plt Count Seg Neutrophils % Sodium 135.2 L Potassium 5.2 H D Chloride 109 H Carbon Dioxide 17 L Anion Gap 9 BUN 32 H Creatinine 1.73 H Est GFR ( Amer) 49 L Glucose 179 H Lactic Acid 1.9 Calcium 8.6 Phosphorus Magnesium Total Bilirubin AST Alkaline Phosphatase Total Protein Albumin Urine Color RED Urine Appearance SLIGHTLY-CLOUDY Urine pH 7.0 Ur Specific Shade 1.010 Urine Protein 100 H Urine Glucose (UA) NEGATIVE Urine Ketones NEGATIVE Urine Blood LARGE H Urine RBC (Auto) >182 01/01/20 01/01/20 01/01/20 06:12 06:12 06:12 WBC 9.3 RBC 4.52 Hgb 11.8 L D Hct 36.0 L MCV 80 MCH 26.2 L MCHC 32.9 RDW 16.1 H Plt Count 141 L Seg Neutrophils % 84.8 H Sodium 137.8 Potassium 5.5 H Chloride 108 H Carbon Dioxide 19 L Anion Gap 11 BUN 37 H Creatinine 1.77 H Est GFR ( Amer) 47 L Glucose 207 H Lactic Acid 1.9 Calcium 8.5 Phosphorus 4.0 Magnesium 1.9 Total Bilirubin 0.6 AST 23 Alkaline Phosphatase 44 Total Protein 5.5 L Albumin 2.7 L Urine Color Urine Appearance Urine pH Ur Specific Shade Urine Protein Urine Glucose (UA) Urine Ketones Urine Blood Urine RBC (Auto) 01/01/20 11:51 WBC RBC Hgb Hct MCV MCH MCHC RDW Plt Count Seg Neutrophils % Sodium 137.1 Potassium 4.8 Chloride 112 H Carbon Dioxide 17 L Anion Gap 8 BUN 35 H Creatinine 1.45 H Est GFR ( Amer) 59 L Glucose 157 H Lactic Acid Calcium 8.6 Phosphorus Magnesium Total Bilirubin AST Alkaline Phosphatase Total Protein Albumin Urine Color Urine Appearance Urine pH Ur Specific Shade Urine Protein Urine Glucose (UA) Urine Ketones Urine Blood Urine RBC (Auto) 12/31/19 12/31/19 12/31/19 13:00 13:00 16:55 Creatine Kinase 65 Troponin I 1.300 0.899 NT-Pro-B Natriuret Pep 7700 H 12/31/19 19:55 Creatine Kinase Troponin I 0.769 NT-Pro-B Natriuret Pep Impressions: KUB X-Ray 12/31/19 00:00 IMPRESSION: NO RADIOGRAPHIC EVIDENCE FOR ACUTE ABDOMINAL DISEASE. Chest X-Ray 12/31/19 13:10 IMPRESSION: Patchy bibasilar airspace opacities which are suspicious for infection. A 1.6 cm nodular opacity at the periphery of the right lung base is noted. Recommend radiographic follow-up after appropriate treatment interval to document resolution. Head CT 12/31/19 13:10 IMPRESSION: NORMAL BRAIN CT WITHOUT CONTRAST. EVIDENCE OF ACUTE STROKE: NO. Assessment and Plan - Diagnosis (1) Acute metabolic encephalopathy Is this a current diagnosis for this admission?: Yes Plan: Was much more obtunded yesterday on presentation but is awake today. However, he still has not said any words despite improvement of electrolyte abnormalities and sepsis. Head CT unimpressive and VBG was also unimpressive. Baseline patient is a quadriplegic at baseline with documented history of aphasia on prior hospitalization. However, I confirmed with Keri Mukherjee that patient though quadriplegic, talks and can carry conversation at baseline. As such, we will go ahead and get MRI of the brain Speech evaluation for swallowing-currently n.p.o. (2) Urinary tract infection Qualifiers: Urinary tract infection type: catheter-associated UTI Indwelling urinary catheter type: indwelling urethral catheter Encounter type: initial encounter Qualified Code(s): T83.511A - Infection and inflammatory reaction due to indwelling urethral catheter, initial encounter; N39.0 - Urinary tract infection, site not specified Is this a current diagnosis for this admission?: Yes Plan: Last time he was in the hospital, urinary culture grew out MSSA and pansensitive E. coli. Gram-negative lucho growing on blood cultures. Will cover with cefepime. Discontinue vancomycin. Await identification Chronic Vyas was changed out (3) Severe sepsis Is this a current diagnosis for this admission?: Yes Plan: Q sofa score of 6 notably with hypotension on admission. Likely secondary to UTI Chest x-ray shows interstitial opacities bilaterally but upon my review does not seem all that different from his prior x-ray back in July. Less suspicion for pneumonia Lactic acid has normalized now following IV fluid resuscitation. To give on the bolus today due to hypotension. MAPS however have been adequate. (4) PRATIK (acute kidney injury) Is this a current diagnosis for this admission?: Yes Plan: Mild improvement (5) Hypotension Qualifiers: Hypotension type: unspecified hypotension type Qualified Code(s): I95.9 - Hypotension, unspecified Is this a current diagnosis for this admission?: Yes Plan: Resolved with IV fluids. (6) Elevated troponin Is this a current diagnosis for this admission?: Yes Plan: Type II [place] secondary to demand perfusion mismatch from hypotension and sepsis (7) Hyperkalemia Is this a current diagnosis for this admission?: Yes Plan: Plan to give patient emergency treatment yesterday. This morning he was noted t o be mildly hyperkalemic but resolved on repeat blood work following lactulose enema and subsequent bowel movements. (8) Abdominal distension Is this a current diagnosis for this admission?: Yes Plan: Was significantly constipated. Resolved with lactulose enema. (9) Gross hematuria Is this a current diagnosis for this admission?: Yes Plan: Was initiated on CBI last night. At this point this evening, hematuria has cleared up very significantly and we will discontinue CBI for now. (10) Diabetes Is this a current diagnosis for this admission?: Yes Plan: npo for now. On ISS and accucheck q6 (11) Quadriplegia, C5-C7 incomplete Is this a current diagnosis for this admission?: Yes - Time Time Spent with patient: 15-24 minutes Anticipated Discharge Disposition: Detention Facility Anticipated Discharge Timeframe: within 72 hours
[2020-01-02] MEDS: INSULIN LISPRO 100 UNIT/ML 3 ML VIAL SUBCUT SCH ×5 (00:05→22:06)
--- NOTE | 2020-01-02 02:51 | EKG REPORT ---
SEVERITY:- ABNORMAL ECG - SINUS RHYTHM ABNRM R PROG, CONSIDER ASMI OR LEAD PLACEMENT BORDERLINE ST ELEVATION, INFERIOR LEADS : Confirmed by: Endy Frank MD 02-Jan-2020 02:50:45
--- NOTE | 2020-01-02 02:51 | EKG REPORT ---
SEVERITY:- BORDERLINE ECG - SINUS TACHYCARDIA PROBABLE LEFT ATRIAL ABNORMALITY LEFT AXIS DEVIATION : Confirmed by: Endy Frank MD 02-Jan-2020 02:50:52
[2020-01-02] MEDS: CEFEPIME HCL 2 GM in DEXTROSE 5%-WATER 50 ML IV SCH (05:07)
[2020-01-02 05:47] LABS: ABSOLUTE LYMPHOCYTES (AUTO) 0.5 10^3/uL (0.5-4.7); ABSOLUTE MONOCYTES (AUTO) 0.5 10^3/uL (0.1-1.4); ABSOLUTE NEUT (AUTO) 5.4 10^3/uL (1.7-8.2); BASOPHILS % (AUTO) 0.5 % (0-2); EOSINOPHILS % (AUTO) 0.7 % (0-6); HEMATOCRIT 33.5 % (37.9-51.0); HEMOGLOBIN 11.1 g/dL (13.5-17.0); MEAN CORPUSCULAR HGB CONC 33.1 g/dL (32.0-36.0); MEAN CORPUSCULAR VOLUME 79 fl (80-97); MONOCYTES % (AUTO) 7.8 % (3-13); PLATELET COUNT 120 10^3/uL (150-450); RED BLOOD COUNT 4.27 10^6/uL (4.35-5.55); RED CELL DISTRIBUTION WIDTH 16.1 % (11.5-14.0); TOTAL CELLS COUNTED % (AUTO) 100 %; WHITE BLOOD COUNT 6.6 10^3/uL (4.0-10.5)
[2020-01-02 06:11] LABS: ALBUMIN 2.8 g/dL (3.5-5.0); ALKALINE PHOSPHATASE 47 U/L (38-126); ANION GAP 8 (5-19); ASPARTATE AMINO TRANSFERASE 21 U/L (17-59); BILIRUBIN,DIRECT 0.3 mg/dL (0.0-0.4); BILIRUBIN,TOTAL 0.6 mg/dL (0.2-1.3); BLOOD UREA NITROGEN 28 mg/dL (7-20); CALCIUM 9.1 mg/dL (8.4-10.2); CARBON DIOXIDE 19 mmol/L (22-30); CHLORIDE 110 mmol/L (98-107); GLUCOSE 147 mg/dL (75-110); TOTAL PROTEIN 5.7 g/dL (6.3-8.2)
[2020-01-02 06:51] LABS: POTASSIUM 3.7 mmol/L (3.6-5.0)
[2020-01-02] MEDS ORDERED: SIMETHICONE 80 MG TAB.CHEW PO PRN (09:53)
[2020-01-02] MEDS ORDERED: ASPIRIN 300 MG SUPP, RECTAL PR SCH (10:00)
--- NOTE | 2020-01-02 10:31 | PDOC PROGRESS REPORT ---
Subjective Progress Note for:: 01/02/20 Subjective:: Patient's metabolic encephalopathy seems to have resolved today. He is now awake and talking. He answers questions appropriately. He denies any shortness of breath or pain at this time. Apparently he had more gross hematuria last night and as such his CBI was reinstituted. Currently looks much clearer and will consider stopping that this afternoon around noon. Reason For Visit: AMS,SEVERE SEPSIS,PNA?,UTI Physical Exam Vital Signs: Temp Pulse Resp BP Pulse Ox 98.0 F 106 H 20 124/61 93 01/02/20 07:31 01/02/20 07:31 01/02/20 07:31 01/02/20 07:31 01/02/20 07:31 Intake & Output 01/01/20 01/02/20 01/03/20 06:59 06:59 06:59 Intake Total 1752 1600 400 Output Total 2050 6500 400 Balance -298 -4900 0 Weight 87.4 kg 89.3 kg General appearance: PRESENT: no acute distress, cooperative Neck exam: ABSENT: JVD Respiratory exam: PRESENT: rhonchi - Minimal, symmetrical, unlabored. ABSENT: tachypnea, wheezes Cardiovascular exam: PRESENT: RRR, +S1, +S2. ABSENT: tachycardia GI/Abdominal exam: PRESENT: soft. ABSENT: rebound, rigid, tenderness Neurological exam: PRESENT: alert, awake, oriented to person, oriented to place, oriented to situation, motor sensory deficit - quadreplegic. ABSENT: oriented to time Psychiatric exam: ABSENT: agitated, anxious Focused psych exam: ABSENT: pressured speech Skin exam: ABSENT: jaundice Results Laboratory Results: 01/02/20 05:23 01/02/20 05:23 01/01/20 01/02/20 01/02/20 11:51 05:23 05:23 WBC 6.6 RBC 4.27 L Hgb 11.1 L Hct 33.5 L MCV 79 L MCH 26.0 L MCHC 33.1 RDW 16.1 H Plt Count 120 L Seg Neutrophils % 83.0 H Sodium 137.1 137.3 Potassium 4.8 3.7 D Chloride 112 H 110 H Carbon Dioxide 17 L 19 L Anion Gap 8 8 BUN 35 H 28 H Creatinine 1.45 H 0.94 Est GFR ( Amer) 59 L > 60 Glucose 157 H 147 H Calcium 8.6 9.1 Total Bilirubin 0.6 AST 21 Alkaline Phosphatase 47 Total Protein 5.7 L Albumin 2.8 L 12/31/19 12/31/19 12/31/19 13:00 13:00 16:55 Creatine Kinase 65 Troponin I 1.300 0.899 NT-Pro-B Natriuret Pep 7700 H 12/31/19 19:55 Creatine Kinase Troponin I 0.769 NT-Pro-B Natriuret Pep Impressions: KUB X-Ray 12/31/19 00:00 IMPRESSION: NO RADIOGRAPHIC EVIDENCE FOR ACUTE ABDOMINAL DISEASE. Chest X-Ray 12/31/19 13:10 IMPRESSION: Patchy bibasilar airspace opacities which are suspicious for infection. A 1.6 cm nodular opacity at the periphery of the right lung base is noted. Recommend radiographic follow-up after appropriate treatment interval to document resolution. Head CT 12/31/19 13:10 IMPRESSION: NORMAL BRAIN CT WITHOUT CONTRAST. EVIDENCE OF ACUTE STROKE: NO. Assessment and Plan - Diagnosis (1) Acute metabolic encephalopathy Is this a current diagnosis for this admission?: Yes Plan: Obtunded and aphasic on admission but fully awake and talking today. Seems to have resolved at this point. Reviewing past records, it seems that this happens whenever he gets septic. Head CT unimpressive and VBG was also unimpressive. Baseline patient is a quadriplegic at baseline with documented but conversatio nal and gets around with a motorized wheelchair as he still has some use of his hands. Resume diet. Hold off on MRI as aphasia has totally resolved. (2) Urinary tract infection Qualifiers: Urinary tract infection type: catheter-associated UTI Indwelling urinary catheter type: indwelling urethral catheter Encounter type: initial encounter Qualified Code(s): T83.511A - Infection and inflammatory reaction due to indwelling urethral catheter, initial encounter; N39.0 - Urinary tract infection, site not specified Is this a current diagnosis for this admission?: Yes Plan: Complicated UTI with Proteus. Was on cefepime but will de-escalate to cefazolin. Chronic Vyas was changed out (3) Severe sepsis Is this a current diagnosis for this admission?: Yes Plan: Q sofa score of 6 notably with hypotension on admission. Secondary to UTI Chest x-ray shows interstitial opacities bilaterally but upon my review does not seem all that different from his prior x-ray back in July. Less suspicion for pneumonia Lactic acidosis and hypotension have resolved now following IV fluid resuscitation. (4) Elevated troponin Is this a current diagnosis for this admission?: Yes Plan: Type II [place] secondary to demand perfusion mismatch from hypotension and sepsis. BNP also elevated. Echocardiogram will be done today. (5) Gross hematuria Is this a current diagnosis for this admission?: Yes Plan: CBI was restarted last night. Seems to be cleared up some not too high so yesterday afternoon. Pinkish but transparent. Can probably discontinue CBI as to I do not see any significant clots at this time. We will need to see urologist. Subcu heparin is on hold. (6) PRATIK (acute kidney injury) Is this a current diagnosis for this admission?: Yes Plan: Secondary to sepsis. Currently resolved. Recheck BMP in the morning. (7) Hyperkalemia Is this a current diagnosis for this admission?: Yes Plan: resolved after having BMs following lactulose enema. (8) Abdominal distension Is this a current diagnosis for this admission?: Yes Plan: Was significantly constipated. Resolved with lactulose enema. (9) Diabetes Is this a current diagnosis for this admission?: Yes Plan: Diabetic diet. Accu-Cheks, sliding scale insulin. We will plan on resuming long-acting insulin now he is no longer n.p.o. (10) Quadriplegia, C5-C7 incomplete Is this a current diagnosis for this admission?: Yes - Time Time Spent with patient: 15-24 minutes Anticipated Discharge Disposition: [facility] Anticipated Discharge Timeframe: within 48 hours
[2020-01-02] MEDS: CLOPIDOGREL BISULFATE 75 MG TABLET PO SCH (10:39)
[2020-01-02] MEDS: MAGNESIUM OXIDE 400 MG TABLET PO SCH (10:39)
[2020-01-02] MEDS: FAMOTIDINE 20 MG TABLET PO SCH ×2 (10:39→17:27)
[2020-01-02] MEDS: ASPIRIN 81 MG TABLET, ENT COATED PO SCH (10:39)
[2020-01-02] MEDS ORDERED: ONDANSETRON HCL INJ/PF 4 MG/2 ML SDV IV PRN (11:00)
[2020-01-02] MEDS ORDERED: CEFAZOLIN 2 GM/D5W RTU 2 GM/50 ML RTUPB IV SCH (12:00)
[2020-01-02] MEDS: CEFAZOLIN SODIUM 2 GM in DEXTROSE 5%-WATER 100 ML IV SCH ×2 (12:23→17:27)
[2020-01-02] MEDS: POLYETHYLENE GLYCOL 3350 POWDER 17 GM/1 PACKET PO SCH (12:24)
[2020-01-02] MEDS: GABAPENTIN 300 MG CAPSULE PO SCH ×2 (13:39→21:13)
[2020-01-02] MEDS: CAPSAICIN 0.025% CREAM 60 GM TOP SCH ×2 (13:39→22:10)
[2020-01-02] MEDS ORDERED: GABAPENTIN 100 MG CAPSULE PO SCH (14:00)
[2020-01-02 14:23] LABS: VANCOMYCIN,TROUGH 9.3 ug/mL (5.0-20.0)
[2020-01-02] MEDS: DOCUSATE SODIUM 100 MG CAPSULE PO SCH (17:27)
[2020-01-02] MEDS: FLUTICASONE NASAL SPRAY 50 MCG/SPRY 120 SPRAY/16 GM NASL SCH (17:30)
[2020-01-02] MEDS: ATORVASTATIN CALCIUM 20 MG TABLET PO SCH (21:13)
[2020-01-02] MEDS: ZOLPIDEM TARTRATE 5 MG TABLET PO SCH (21:13)
[2020-01-02] MEDS: GUAIFENESIN SYRP 200 MG/10 ML UDC PO PRN (21:13)
[2020-01-02] MEDS ORDERED: DILTIAZEM HCL INJ 25 MG/5 ML VIAL ONE (21:42)
--- NOTE | 2020-01-02 21:45 | EKG REPORT ---
SEVERITY:- ABNORMAL ECG - ATRIAL FIBRILLATION LEFT ANTERIOR FASCICULAR BLOCK : Confirmed by: Will Rodney 02-Jan-2020 21:44:46
[2020-01-02] MEDS ORDERED: DILTIAZEM HCL INJ 25 MG/5 ML VIAL IV ONE ×2 (22:00→22:45)
[2020-01-02] MEDS ORDERED: DILTIAZEM HCL/D5W 125 MG/125 ML RTUINJ IV PRN (22:41)
[2020-01-02] MEDS ORDERED: ENOXAPARIN SODIUM INJ 100 MG/1 ML DISP.SYRIN SUBCUT ONE (22:45)
[2020-01-03] MEDS: CEFAZOLIN SODIUM 2 GM in DEXTROSE 5%-WATER 100 ML IV SCH ×5 (00:09→23:28)
[2020-01-03] MEDS: GABAPENTIN 300 MG CAPSULE PO SCH ×3 (05:32→21:14)
[2020-01-03] MEDS: CAPSAICIN 0.025% CREAM 60 GM TOP SCH ×3 (05:38→23:00)
[2020-01-03 06:37] LABS: HEMATOCRIT 31.2 % (37.9-51.0); HEMOGLOBIN 10.5 g/dL (13.5-17.0); MEAN CORPUSCULAR HEMOGLOBIN 26.2 pg (27.0-33.4); MEAN CORPUSCULAR HGB CONC 33.8 g/dL (32.0-36.0); MEAN CORPUSCULAR VOLUME 78 fl (80-97); PLATELET COUNT 122 10^3/uL (150-450); RED BLOOD COUNT 4.02 10^6/uL (4.35-5.55); RED CELL DISTRIBUTION WIDTH 15.6 % (11.5-14.0); WHITE BLOOD COUNT 8.4 10^3/uL (4.0-10.5)
[2020-01-03 07:10] LABS: ANION GAP 8 (5-19); BLOOD UREA NITROGEN 20 mg/dL (7-20); CALCIUM 8.8 mg/dL (8.4-10.2); CARBON DIOXIDE 22 mmol/L (22-30); CHLORIDE 101 mmol/L (98-107); GLUCOSE 132 mg/dL (75-110); POTASSIUM 3.4 mmol/L (3.6-5.0)
[2020-01-03] MEDS: INSULIN LISPRO 100 UNIT/ML 3 ML VIAL SUBCUT SCH ×4 (08:17→21:13)
--- NOTE | 2020-01-03 08:47 | XCELERA REPORT ---
[address] [address] Transthoracic Echocardiogram Report Name: KATHERINE GEORGES Age: 64 yrs Gender: Male : 1955 Patient Status: Inpatient Patient Location: [address] [place] [address] Study Date: 01/02/2020 09:02 AM Height: 70 in Weight: 196 lb BSA: 2.1 m2 Procedure: A complete two-dimensional transthoracic echocardiogram was performed (2D, M-mode, spectral and color flow Doppler). The study was technically difficult with many images being suboptimal in quality. Reason For Study: cardiomegaly, elev bnp. Previous Evaluation: No previous studies were available. History: CHF. Ordering Physician: RICHARD DAVILA Performed By: Roma Gonzalez Interpretation Summary Left ventricular systolic function is normal. The Ejection Fraction estimate is 60-65% There is a trace amount of mitral regurgitation There is no aortic valve stenosis There is a mild amount of tricuspid regurgitation There is moderate pulmonary hypertension by echo There is no pericardial effusion. MMode/2D Measurements & Calculations RVDd: 2.9 cm LVIDd: 3.8 cm FS: 35.7 % Ao root diam: 2.5 cm IVSd: 1.5 cm LVIDs: 2.4 cm EDV(Teich): 60.9 ml Ao root area: 5.0 cm2 LVPWd: 1.4 cm ESV(Teich): 20.7 ml EF(Teich): 65.9 % Doppler Measurements & Calculations MV E max reina: MV dec slope: Ao V2 max: LV V1 max P.2 cm/sec 655.2 cm/sec2 104.8 cm/sec 3.0 mmHg MV A max reina: MV dec time: 0.11 secAo max PG: LV V1 max: 91.7 cm/sec 4.4 mmHg 86.8 cm/sec MV E/A: 0.77 PA V2 max: TR max reina: 88.9 cm/sec 319.3 cm/sec PA max P.2 mmHg TR max P.8 mmHg Left Ventricle The left ventricular cavity is small. There is severe concentric left ventricular hypertrophy. Left ventricular systolic function is normal. The Ejection Fraction estimate is 60-65%. Doppler measurements suggest impaired left ventricular relaxation, which is associated with grade I/IV or mild diastolic dysfunction. Right Ventricle The right ventricle is not well visualized secondary to technical limitations. Atria The left atrium is borderline dilated. Mitral Valve The mitral valve is grossly normal. There is a trace amount of mitral regurgitation. Aortic Valve The aortic valve is sclerotic, but shows no functional abnormality. The aortic valve opens well. The aortic valve is trileaflet. There is no aortic valve stenosis. No aortic regurgitation is present. Tricuspid Valve The tricuspid valve is normal in structure and function. There is a mild amount of tricuspid regurgitation. Right ventricular systolic pressure is estimated to be elevated at 40-50mmHg. There is moderate pulmonary hypertension by echo. Pulmonic Valve The pulmonic valve is normal in structure and function. There is a trace amount of pulmonic regurgitation. Great Vessels The aortic root is normal size. The inferior vena cava appeared normal. Effusions There is no pericardial effusion. : RICHARD DAVILA Anil
[2020-01-03] MEDS ORDERED: POTASSIUM CHLORIDE 20 MEQ PACKET PO ONE (09:00)
--- NOTE | 2020-01-03 09:12 | EKG REPORT ---
SEVERITY:- BORDERLINE ECG - SINUS TACHYCARDIA : Confirmed by: Will Rodney 03-Jan-2020 09:11:57
[2020-01-03] MEDS: MAGNESIUM OXIDE 400 MG TABLET PO SCH (09:52)
[2020-01-03] MEDS: CLOPIDOGREL BISULFATE 75 MG TABLET PO SCH (09:52)
[2020-01-03] MEDS: GUAIFENESIN SYRP 200 MG/10 ML UDC PO PRN ×2 (09:52→17:21)
[2020-01-03] MEDS: FAMOTIDINE 20 MG TABLET PO SCH ×2 (09:52→17:22)
[2020-01-03] MEDS: POLYETHYLENE GLYCOL 3350 POWDER 17 GM/1 PACKET PO SCH (09:52)
[2020-01-03] MEDS: FLUTICASONE NASAL SPRAY 50 MCG/SPRY 120 SPRAY/16 GM NASL SCH ×2 (09:52→17:21)
[2020-01-03] MEDS: ASPIRIN 81 MG TABLET, ENT COATED PO SCH (09:52)
[2020-01-03] MEDS: DOCUSATE SODIUM 100 MG CAPSULE PO SCH ×2 (09:52→17:22)
[2020-01-03] MEDS: ENOXAPARIN SODIUM INJ 100 MG/1 ML DISP.SYRIN SUBCUT SCH ×2 (09:53→21:15)
--- NOTE | 2020-01-03 14:19 | PDOC CONSULTATION ---
Consultation Consult Date: 01/03/20 Provider Consulted: [facility] TRACEY Consult reason:: Elevated troponin History of Present Illness Admission Date/PCP: 12/31/19 17:01 FERMIN JOHNSON MD Patient complains of: Fatigue History of Present Illness: KATHERINE GEORGES is a 64 year old male With the following active problems 1. Quadriplegia-C5 C7 spinal cord injury 2. Neurogenic bladder 3. Chronic indwelling Vyas catheter 4. Diabetes mellitus Patient was admitted with urinary tract infection with sepsis. He had metabolic encephalopathy as well. He has been successfully treated for several of these problems. No report of chest pain. His troponins were elevated at admission. The peak troponin was 1.3 at admission but since admission it is come down to 0.769. Presently he still is a bit exhausted but reports no chest pain or discomfort. He has been receiving antibiotic therapy Review of systems is limited but patient reports fatigue. Full review of systems cannot be obtained due to patient being very tired and somewhat exhausted No familial illnesses reported. . Past Medical History Cardiac Medical History: Denies: Congestive Heart Failure, DVT, Myocardial Infarction, Hyperlipidema, Hypertension, Pulmonary Embolism Pulmonary Medical History: Reports: Pneumonia Denies: Asthma, Chronic Obstructive Pulmonary Disease (COPD) Neurological Medical History: Denies: Seizures Endocrine Medical History: Reports: Diabetes Mellitus Type 2 Denies: Hyperthyroidism, Hypothyroidism Renal/ Medical History: Reports: End Stage Renal Disease - right kidney, chronic UTI GI Medical History: Reports: Gastroesophageal Reflux Disease Denies: Cirrhosis, Hepatitis, Hiatal Hernia Musculoskeltal Medical History: Reports: Arthritis Skin Medical History: Reports: Psoriasis Psychiatric Medical History: Reports: Depression - mild; no suicidal/homicidal ideation Hematology: Reports: Anemia Denies: Sickle Cell Disease Past Surgical History Past Surgical History: Reports: Orthopedic Surgery - Cervical fusion Denies: Pacemaker Social History Lives with: [facility] Smoking Status: Unknown if Ever Smoked Electronic Cigarette use?: No Frequency of Alcohol Use: None Hx Recreational Drug Use: No Drugs: None Hx Prescription Drug Abuse: No - Advance Directive Resuscitation Status: Full Code Family History Family History: Reviewed & Not Pertinent Parental Family History Reviewed: Yes - No familial illnesses reported Children Family History Reviewed: NA Sibling(s) Family History Reviewed.: NA Medication/Allergy Home Medications: Docusate Sodium [Colace 100 mg Capsule] 100 mg PO BID capsule 02/11/16 Cetirizine HCl [Zyrtec] 10 mg PO DAILYP PRN 11/20/16 Acetaminophen [Tylenol] 650 mg PO Q8HP PRN 08/16/19 Ammonium Lactate [Lac-Hydrin 12% Lotion 225Gm/Bottle] 1 applic TP DAILY 08/16/19 Aspirin [Ecotrin 81 mg EC Tablet] 81 mg PO DAILY 08/16/19 Atorvastatin Calcium [Lipitor 20 mg Tablet] 20 mg PO QHS 08/16/19 Baclofen [Baclofen 20 mg Tablet] 20 mg PO Q6 08/16/19 Fluticasone Propionate [Flonase Nasal Ventura 50 Mcg/Ventura 16 gm] 1 spray NASL BID 08/16/19 Furosemide [Lasix 20 mg Tablet] 20 mg PO DAILY 08/16/19 Gabapentin 400 mg PO Q8 08/16/19 Insulin Detemir [Levemir] 20 units SUBCUT BID 08/16/19 Magnesium Oxide [Mag-Ox 400 mg Tablet] 400 mg PO DAILY 08/16/19 Menthol [Biofreeze] 1 applic TP Q4HP PRN 08/16/19 Metformin HCl [Glucophage 500 mg Tablet] 500 mg PO BID 08/16/19 Simethicone 125 mg PO Q6HP PRN 08/16/19 Clopidogrel Bisulfate [Plavix 75 mg Tablet] 75 mg PO DAILY 30 Days #30 tablet 08/20/19 Capsaicin [Zostrix 0.025% Cream 60 gm] 1 applic TOP Q8 12/31/19 Ciclopirox/Skin Cleanser No.40 [Loprox 0.77% Suspension Kit] 1 applic TOP DAILY 12/31/19 Famotidine [Pepcid 20 mg Tablet] 20 mg PO BID 12/31/19 Lidocaine HCl [Aspercreme Lidocaine] 1 applic TOP BID 12/31/19 Zolpidem Tartrate [Ambien] 10 mg PO QHS 12/31/19 Allergies/Adverse Reactions: Sulfa (Sulfonamide Antibiotics) Allergy (Mild, Verified 12/31/19 15:23) Hives, Itching Review of Systems ROS unobtainable: Due to mental status Cardiovascular: ABSENT: as per HPI, chest pain, dyspnea on exertion, edema, orthropnea, palpitations, other Physical Exam Vital Signs: Temp Pulse Resp BP Pulse Ox 97.6 F 86 18 110/70 93 01/03/20 11:25 01/03/20 11:25 01/03/20 11:25 01/03/20 11:25 01/03/20 11:25 Intake & Output 01/02/20 01/03/20 01/04/20 06:59 06:59 06:59 Intake Total 1600 1847 340 Output Total 6500 2175 Balance -4900 -328 340 Weight 89.3 kg 88.4 kg General appearance: PRESENT: cooperative, well-developed, well-nourished Head exam: PRESENT: atraumatic, normocephalic Eye exam: PRESENT: conjunctiva pink, EOMI Respiratory exam: PRESENT: decreased breath sounds, symmetrical, unlabored Cardiovascular exam: PRESENT: RRR, +S1, +S2 Pulses: PRESENT: normal radial pulses GI/Abdominal exam: PRESENT: soft Rectal exam: PRESENT: deferred Neurological exam: PRESENT: awake, oriented to person, oriented to place Skin exam: PRESENT: dry Results Laboratory Results: 01/03/20 05:44 01/03/20 05:44 01/03/20 01/03/20 05:44 05:44 WBC 8.4 RBC 4.02 L Hgb 10.5 L Hct 31.2 L MCV 78 L MCH 26.2 L MCHC 33.8 RDW 15.6 H Plt Count 122 L Sodium 131.4 L Potassium 3.4 L Chloride 101 Carbon Dioxide 22 Anion Gap 8 BUN 20 Creatinine 0.83 Est GFR ( Amer) > 60 Glucose 132 H Calcium 8.8 01/01/20 04:00 Catheterized Urine Urine Culture - Final Pseudomonas Aeruginosa Proteus Mirabilis 12/31/19 12/31/19 12/31/19 13:00 13:00 16:55 Creatine Kinase 65 Troponin I 1.300 0.899 NT-Pro-B Natriuret Pep 7700 H 12/31/19 19:55 Creatine Kinase Troponin I 0.769 NT-Pro-B Natriuret Pep EKG Comments: Twelve-lead EKG 01/02/2020 Atrial fibrillation rapid ventricular response 153 bpm Twelve-lead EKG 01/03/2020 Sinus rhythm 88 bpm normal AV conduction, QTC is 455 ms Transthoracic echocardiogram 01/02/2020 left ventricular ejection fraction 60 to 65% Trace mitral vegetation There is no aortic valve stenosis Mild tricuspid regurgitation Moderate pulmonary hypertension No pericardial effusion Impressions: KUB X-Ray 12/31/19 00:00 IMPRESSION: NO RADIOGRAPHIC EVIDENCE FOR ACUTE ABDOMINAL DISEASE. Chest X-Ray 12/31/19 13:10 IMPRESSION: Patchy bibasilar airspace opacities which are suspicious for infection. A 1.6 cm nodular opacity at the periphery of the right lung base is noted. Recommend radiographic follow-up after appropriate treatment interval to document resolution. Head CT 12/31/19 13:10 IMPRESSION: NORMAL BRAIN CT WITHOUT CONTRAST. EVIDENCE OF ACUTE STROKE: NO. Assessment & Plan - Diagnosis (1) Atrial fibrillation with RVR Is this a current diagnosis for this admission?: Yes Plan: Transient episode in setting of sepsis and metabolic encephalopathy This was triggered atrial fibrillation. If anything would recommend a low-dose beta-lorna to suppress triggers for atrial fibrillation Would not commit to systemic anticoagulation unless he has frequent episodes. We should ideally happen independent of any triggers such as sepsis as in this case. Echocardiogram shows preserved ejection fraction (2) Elevated troponin Is this a current diagnosis for this admission?: Yes Plan: Elevated troponin in a setting of sepsis EKG without ischemic changes Patient without any chest pain Would not pursue re-stratification at this time given patient's medical problems and ongoing sepsis and infection. Echocardiogram shows preserved ejection fraction with no significant or focal wall motion abnormality. The speaks against the presence of occlusive coronary artery disease. This is another reason not to pursue ischemic evaluation at this time Would still recommend aspirin statin and beta-lorna given elevation in troponin which was significant and if feasible. (3) Sepsis Qualifiers: Sepsis type: sepsis due to unspecified organism Sepsis acute organ dysfunction status: unspecified Qualified Code(s): A41.9 - Sepsis, unspecified organism Is this a current diagnosis for this admission?: Yes Plan: This is being treated and managed with antibiotics. Patient is improving. - Notes Notes: Would recommend discontinuing enoxaparin at this time Discontinue diltiazem infusion Would recommend low-dose beta-lorna Continue atorvastatin 20 mg daily Continue aspirin 81 mg daily
[2020-01-03] MEDS ORDERED: ADENOSINE INJ/PF 6 MG/2 ML SDV IV ONE ×2 (20:21→21:00)
--- NOTE | 2020-01-03 20:29 | PDOC PROGRESS REPORT ---
Subjective Progress Note for:: 01/03/20 Subjective:: JACINDA GEORGES is a 64 year old male with history of quadriplegia C5-C7 spinal cord injury, neurogenic bladder, chronic Alfredo, diabetes, chronic Alfredo, who resides in [facility], presents from [facility] for evaluation of altered mental status. Patient is usually able to communicate and carry conversation though it is noted in his med rec that he has history of aphasia, but was noted to become less responsive and confused today. No fever was noted in [facility]. EMS was called. Patient was noted to be hypotensive in the ER with systolic blood pressures in the 80s. Lactic acid is also elevated. Patient was fluid resuscitated with 2 L normal saline. According to ER nurse, patient was able to communicate his name and location upon arrival though was altered. During my encounter, patient is very lethargic and not able to engage in any conversation whatsoever. He has received antibiotics in the ER with concerns for severe sepsis from UTI. Metabolic encephalopathy improved and succeeding days. Urine culture grew Proteus antibiotics the escalated to cefazolin from cefepime on 01/02/2020. He developed hematuria on 2nd day of admission and was started on CBI. He had an episode of paroxysmal a.fib 01/02/20, was briefly put on a Cardizem drip which controlled his heart rate cardiology was consulted who recommended low dose beta lorna. D4 hospital stay 01/03/20. He was seen and examined at bedside. He is awake, alert, oriented to self and place, he is forgetful at times. He denies any SOB, chest pain. Urine in the urine bag reddish orange. Spoke to Dr. Endy Frank regarding his paroxysmal A. fib today who recommended low-dose beta-lorna. He does not recommend box toe cutter AC as this is likely from his UTI and sepsis. Reason For Visit: AMS,SEVERE SEPSIS,PNA?,UTI Physical Exam Vital Signs: Temp Pulse Resp BP Pulse Ox 97.6 F 91 18 110/70 93 01/03/20 11:25 01/03/20 19:00 01/03/20 11:25 01/03/20 11:25 01/03/20 11:25 Intake & Output 01/02/20 01/03/20 01/04/20 06:59 06:59 06:59 Intake Total 1600 1847 962 Output Total 6500 2175 1000 Balance -4900 -328 -38 Weight 89.3 kg 88.4 kg General appearance: PRESENT: no acute distress, cooperative, hard of hearing Head exam: PRESENT: atraumatic, normocephalic Eye exam: PRESENT: EOMI, PERRLA Ear exam: PRESENT: normal external ear exam Mouth exam: PRESENT: moist Neck exam: PRESENT: full ROM Respiratory exam: PRESENT: clear to auscultation gabe, symmetrical, unlabored. ABSENT: rales, wheezes Cardiovascular exam: PRESENT: RRR, +S1, +S2 Pulses: PRESENT: normal radial pulses Vascular exam: PRESENT: normal capillary refill GI/Abdominal exam: PRESENT: normal bowel sounds, soft. ABSENT: rebound, tenderness Gentrourinary exam: PRESENT: indwelling catheter Extremities exam: PRESENT: other - Is quadriplegic. ABSENT: +2 edema Musculoskeletal exam: PRESENT: other - quadriplegic Neurological exam: PRESENT: alert, awake, oriented to person Psychiatric exam: PRESENT: normal mood Skin exam: PRESENT: normal color Results Laboratory Results: 01/03/20 05:44 01/03/20 05:44 01/03/20 01/03/20 05:44 05:44 WBC 8.4 RBC 4.02 L Hgb 10.5 L Hct 31.2 L MCV 78 L MCH 26.2 L MCHC 33.8 RDW 15.6 H Plt Count 122 L Sodium 131.4 L Potassium 3.4 L Chloride 101 Carbon Dioxide 22 Anion Gap 8 BUN 20 Creatinine 0.83 Est GFR ( Amer) > 60 Glucose 132 H Calcium 8.8 01/01/20 04:00 Catheterized Urine Urine Culture - Final Pseudomonas Aeruginosa Proteus Mirabilis 12/31/19 12/31/19 12/31/19 13:00 13:00 16:55 Creatine Kinase 65 Troponin I 1.300 0.899 NT-Pro-B Natriuret Pep 7700 H 12/31/19 19:55 Creatine Kinase Troponin I 0.769 NT-Pro-B Natriuret Pep Impressions: KUB X-Ray 12/31/19 00:00 IMPRESSION: NO RADIOGRAPHIC EVIDENCE FOR ACUTE ABDOMINAL DISEASE. Chest X-Ray 12/31/19 13:10 IMPRESSION: Patchy bibasilar airspace opacities which are suspicious for infection. A 1.6 cm nodular opacity at the periphery of the right lung base is noted. Recommend radiographic follow-up after appropriate treatment interval to document resolution. Head CT 12/31/19 13:10 IMPRESSION: NORMAL BRAIN CT WITHOUT CONTRAST. EVIDENCE OF ACUTE STROKE: NO. Assessment and Plan - Diagnosis (1) Acute metabolic encephalopathy Is this a current diagnosis for this admission?: Yes Plan: - improved today. He seemed much more alert and awake albeit a bit forgetful but he is able to hold a conversation - likely 2/2 UTI and sepsis (2) Atrial fibrillation with RVR Is this a current diagnosis for this admission?: Yes Plan: - paroxysmal, new onset a.fib - noted last night, no prior history - EKG showed a.fib - Chadsvasc score 1 - echo EF 60-65%, LV function normal - received cardizem bolus and drip - currently transitioned to metoprolol - currently on therapeutic lovenox - given that this is paroxysmal and that it happened in the setting of sepsis due to UTI, box toe cutter AC is not really advisable unless it recurs or he has a high burden of a.fib outpatient - will check TSH (3) Urinary tract infection Qualifiers: Urinary tract infection type: catheter-associated UTI Indwelling urinary catheter type: indwelling urethral catheter Encounter type: initial encounter Qualified Code(s): T83.511A - Infection and inflammatory reaction due to indwelling urethral catheter, initial encounter; N39.0 - Urinary tract infection, site not specified Is this a current diagnosis for this admission?: Yes Plan: - Urine culture growing proteus - patient has a chronic alfredo secondary to quadriplegia - received cefepime - de escalated to cefazolin currently on D2 - alfredo replaced (4) Severe sepsis Is this a current diagnosis for this admission?: Yes Plan: - resolved. mental status back at baseline, afebrile, BP stable, lactic acidosis normal - secondary to UTI - continue management with abx for UTI (5) NSTEMI (non-ST elevated myocardial infarction) Is this a current diagnosis for this admission?: Yes Plan: - troponin 1.3>0.899>0.769 - EKG without ischemic changes - Type II IA from sepsis - cardio on board - on aspirin, lipitor, beta lorna (6) Gross hematuria Is this a current diagnosis for this admission?: Yes Plan: - received CBI yesterday - alfredo output seems much better today reddish orange but not grossly bloody - lucas 2/2 ongoing infection - may resume lovenox - continue to monitor hgb (7) PRATIK (acute kidney injury) Is this a current diagnosis for this admission?: Yes Plan: Secondary to sepsis. Currently resolved. Recheck BMP in the morning. (8) Hypokalemia Is this a current diagnosis for this admission?: Yes Plan: - K 3.4 this morning replaced (9) Diabetes Qualifiers: Diabetes mellitus type: type 2 Diabetes mellitus complication status: with hyperglycemia Is this a current diagnosis for this admission?: Yes Plan: Diabetic diet. Accu-Cheks, sliding scale insulin. detemir resumed (10) Quadriplegia, C5-C7 incomplete Is this a current diagnosis for this admission?: Yes - Time Time Spent with patient: 15-24 minutes Anticipated Discharge Disposition: Snf Facility Anticipated Discharge Timeframe: within 48 hours
[2020-01-03] MEDS: ZOLPIDEM TARTRATE 5 MG TABLET PO SCH (21:14)
[2020-01-03] MEDS: ATORVASTATIN CALCIUM 20 MG TABLET PO SCH (21:14)
[2020-01-03] MEDS: INSULIN GLARGINE,HUM.REC.ANLOG 1,000 UNIT/10 ML VIAL SUBCUT SCH (23:00)
--- NOTE | 2020-01-04 00:57 | EKG REPORT ---
SEVERITY:- NORMAL ECG - SINUS RHYTHM : Confirmed by: Wlil Rodney 04-Jan-2020 00:56:14
[2020-01-04] MEDS: GUAIFENESIN SYRP 200 MG/10 ML UDC PO PRN (03:22)
[2020-01-04] MEDS: CAPSAICIN 0.025% CREAM 60 GM TOP SCH ×3 (05:10→22:31)
[2020-01-04] MEDS: GABAPENTIN 300 MG CAPSULE PO SCH ×3 (05:10→22:30)
[2020-01-04] MEDS: CEFAZOLIN SODIUM 2 GM in DEXTROSE 5%-WATER 100 ML IV SCH ×3 (05:10→17:20)
[2020-01-04 08:03] LABS: ABSOLUTE EOSINOPHILS # (AUTO) 0.2 10^3/uL (0.0-0.6); ABSOLUTE LYMPHOCYTES (AUTO) 0.8 10^3/uL (0.5-4.7); ABSOLUTE MONOCYTES (AUTO) 0.7 10^3/uL (0.1-1.4); ABSOLUTE NEUT (AUTO) 5.5 10^3/uL (1.7-8.2); BASOPHILS % (AUTO) 0.4 % (0-2); EOSINOPHILS % (AUTO) 2.6 % (0-6); HEMATOCRIT 29.8 % (37.9-51.0); HEMOGLOBIN 10.2 g/dL (13.5-17.0); MEAN CORPUSCULAR HEMOGLOBIN 26.2 pg (27.0-33.4); MEAN CORPUSCULAR HGB CONC 34.2 g/dL (32.0-36.0); MEAN CORPUSCULAR VOLUME 77 fl (80-97); MONOCYTES % (AUTO) 10.3 % (3-13); PLATELET COUNT 122 10^3/uL (150-450); RED BLOOD COUNT 3.88 10^6/uL (4.35-5.55); RED CELL DISTRIBUTION WIDTH 15.4 % (11.5-14.0); SEGMENTED NEUTROPHILS % (AUTO) 75.7 % (42-78); TOTAL CELLS COUNTED % (AUTO) 100 %; WHITE BLOOD COUNT 7.2 10^3/uL (4.0-10.5)
[2020-01-04 08:14] LABS: ALBUMIN 2.6 g/dL (3.5-5.0); ALKALINE PHOSPHATASE 44 U/L (38-126); ANION GAP 7 (5-19); ASPARTATE AMINO TRANSFERASE 18 U/L (17-59); BILIRUBIN,DIRECT 0.3 mg/dL (0.0-0.4); BILIRUBIN,TOTAL 0.4 mg/dL (0.2-1.3); BLOOD UREA NITROGEN 15 mg/dL (7-20); CALCIUM 8.4 mg/dL (8.4-10.2); CARBON DIOXIDE 23 mmol/L (22-30); CHLORIDE 99 mmol/L (98-107); GLUCOSE 114 mg/dL (75-110); POTASSIUM 3.4 mmol/L (3.6-5.0); TOTAL PROTEIN 5.5 g/dL (6.3-8.2)
[2020-01-04] MEDS: INSULIN LISPRO 100 UNIT/ML 3 ML VIAL SUBCUT SCH ×4 (08:53→22:31)
[2020-01-04] MEDS ORDERED: INSULIN DETEMIR 20 UNIT SUBCUT SCH (10:00)
[2020-01-04] MEDS: METOPROLOL SUCCINATE 25 MG TAB.SR.24H PO SCH (10:20)
[2020-01-04] MEDS: MAGNESIUM OXIDE 400 MG TABLET PO SCH (10:20)
[2020-01-04] MEDS: FLUTICASONE NASAL SPRAY 50 MCG/SPRY 120 SPRAY/16 GM NASL SCH ×2 (10:20→17:18)
[2020-01-04] MEDS: DOCUSATE SODIUM 100 MG CAPSULE PO SCH ×2 (10:20→17:17)
[2020-01-04] MEDS: FAMOTIDINE 20 MG TABLET PO SCH ×2 (10:20→17:18)
[2020-01-04] MEDS: ASPIRIN 81 MG TABLET, ENT COATED PO SCH (10:20)
[2020-01-04] MEDS: CLOPIDOGREL BISULFATE 75 MG TABLET PO SCH (10:20)
[2020-01-04] MEDS: POLYETHYLENE GLYCOL 3350 POWDER 17 GM/1 PACKET PO SCH (10:20)
[2020-01-04] MEDS: ENOXAPARIN SODIUM INJ 100 MG/1 ML DISP.SYRIN SUBCUT SCH ×2 (10:21→22:29)
[2020-01-04] MEDS: INSULIN GLARGINE,HUM.REC.ANLOG 1,000 UNIT/10 ML VIAL SUBCUT SCH ×2 (10:21→22:30)
--- NOTE | 2020-01-04 11:57 | PDOC PROGRESS REPORT ---
Subjective Progress Note for:: 01/04/20 Subjective:: Patient seen and examined. Doing better. Reason For Visit: AMS,SEVERE SEPSIS,PNA?,UTI Physical Exam Vital Signs: Temp Pulse Resp BP Pulse Ox 97.6 F 84 16 144/91 H 95 01/04/20 10:00 01/04/20 07:00 01/04/20 03:13 01/04/20 03:13 01/04/20 03:13 Intake & Output 01/03/20 01/04/20 01/05/20 06:59 06:59 06:59 Intake Total 1847 1162 Output Total 2179 7710 Balance -328 -1238 Weight 88.4 kg 90.3 kg General appearance: PRESENT: no acute distress, cooperative, well-developed, well-nourished Head exam: PRESENT: atraumatic, normocephalic Eye exam: PRESENT: conjunctiva pink, EOMI Mouth exam: PRESENT: moist Respiratory exam: PRESENT: crackles, decreased breath sounds, symmetrical, unlabored Cardiovascular exam: PRESENT: RRR, +S1, +S2 GI/Abdominal exam: PRESENT: soft Rectal exam: PRESENT: deferred Neurological exam: PRESENT: alert, awake, oriented to person, oriented to place, oriented to time, oriented to situation Psychiatric exam: PRESENT: appropriate affect Skin exam: PRESENT: dry, intact Results Laboratory Results: 01/04/20 03:52 01/04/20 03:52 01/04/20 01/04/20 01/04/20 03:52 03:52 03:52 WBC 7.2 RBC 3.88 L Hgb 10.2 L Hct 29.8 L MCV 77 L MCH 26.2 L MCHC 34.2 RDW 15.4 H Plt Count 122 L Seg Neutrophils % 75.7 Sodium 128.8 L Potassium 3.4 L Chloride 99 Carbon Dioxide 23 Anion Gap 7 BUN 15 Creatinine 0.68 Est GFR ( Amer) > 60 Glucose 114 H Calcium 8.4 Total Bilirubin 0.4 AST 18 Alkaline Phosphatase 44 Total Protein 5.5 L Albumin 2.6 L TSH 1.41 01/01/20 04:00 Catheterized Urine Urine Culture - Final Pseudomonas Aeruginosa Proteus Mirabilis 12/31/19 12/31/19 12/31/19 13:00 13:00 16:55 Creatine Kinase 65 Troponin I 1.300 0.899 NT-Pro-B Natriuret Pep 7700 H 12/31/19 19:55 Creatine Kinase Troponin I 0.769 NT-Pro-B Natriuret Pep Impressions: KUB X-Ray 12/31/19 00:00 IMPRESSION: NO RADIOGRAPHIC EVIDENCE FOR ACUTE ABDOMINAL DISEASE. Chest X-Ray 12/31/19 13:10 IMPRESSION: Patchy bibasilar airspace opacities which are suspicious for infection. A 1.6 cm nodular opacity at the periphery of the right lung base is noted. Recommend radiographic follow-up after appropriate treatment interval to document resolution. Head CT 12/31/19 13:10 IMPRESSION: NORMAL BRAIN CT WITHOUT CONTRAST. EVIDENCE OF ACUTE STROKE: NO. Assessment & Plan - Diagnosis (1) Atrial fibrillation with RVR Is this a current diagnosis for this admission?: Yes Plan: Presently his atrial fibrillation episodes have occurred in the setting of sepsis and infection and overall poor health Given increased stroke risk and may be reasonable to pursue systemic anticoagulation as he may have more episodes. The decision to forego systemic anticoagulation can be based after a period of outpatient ambulatory cardiac monitoring. This can be arranged later. Continue low-dose beta-lorna to suppress these episodes and also decrease the rate of atrial fibrillation ventricular response. (2) Elevated troponin Is this a current diagnosis for this admission?: Yes Plan: Likely multifactorial. Absent chest pain this is likely a reflection of sepsis and overall ill health rather than acute coronary syndrome Also episodes of tachycardia can produce demand mediated ischemia and elevation in troponin does not indicate the presence of acute coronary syndrome although this cannot be excluded without her stratification. Given ongoing illness is not ideal to pursue. (3) Sepsis Qualifiers: Sepsis type: sepsis due to unspecified organism Sepsis acute organ dysfunction status: unspecified Qualified Code(s): A41.9 - Sepsis, unspecified organism Is this a current diagnosis for this admission?: Yes Plan: Antibiotics per primary team. Patient appears to be improving slowly.
--- NOTE | 2020-01-04 15:06 | PDOC PROGRESS REPORT ---
Subjective Progress Note for:: 01/04/20 Subjective:: JACINDA GEORGES is a 64 year old male with history of quadriplegia C5-C7 spinal cord injury, neurogenic bladder, chronic Alfredo, diabetes, chronic Alfredo, who resides in [facility], presents from long term for evaluation of altered mental status. Patient is usually able to communicate and carry conversation though it is noted in his med rec that he has history of aphasia, but was noted to become less responsive and confused today. No fever was noted in long term. EMS was called. Patient was noted to be hypotensive in the ER with systolic blood pressures in the 80s. Lactic acid is also elevated. Patient was fluid resuscitated with 2 L normal saline. According to ER nurse, patient was able to communicate his name and location upon arrival though was altered. During my encounter, patient is very lethargic and not able to engage in any conversation whatsoever. He has received antibiotics in the ER with concerns for severe sepsis from UTI. Metabolic encephalopathy improved and succeeding days. Urine culture grew Proteus antibiotics the escalated to cefazolin from cefepime on 01/02/2020. He developed hematuria on 2nd day of admission and was started on CBI. He had an episode of paroxysmal a.fib 01/02/20, was briefly put on a Cardizem drip which controlled his heart rate cardiology was consulted who recommended low dose beta lorna. D4 hospital stay 01/03/20. He was seen and examined at bedside. He is awake, alert, oriented to self and place, he is forgetful at times. He denies any SOB, chest pain. Urine in the urine bag reddish orange. Spoke to Dr. Endy Frank regarding his paroxysmal A. fib today who recommended low-dose beta-lorna. He does not recommend roasterman AC as this is likely from his UTI and sepsis. D5 hospital stay 01/04/20. He was seen and examined at bedside. Denies any pain, no chest pain, no SOB. Still noted to have minimal hematuria on alfredo drain. He is alert, awake and oriented. He is D3 of cefazolin for proteus. Per NF , he had 1 episode of SVT that terminated with adenosine. He is currently on metoprolol 25 for paroxysmal new onset a.fib. Cardiology aware. Reason For Visit: AMS,SEVERE SEPSIS,PNA?,UTI Physical Exam Vital Signs: Temp Pulse Resp BP Pulse Ox 98.0 F 88 15 140/82 H 94 01/04/20 13:06 01/04/20 13:06 01/04/20 13:06 01/04/20 13:06 01/04/20 13:06 Intake & Output 01/03/20 01/04/20 01/05/20 06:59 06:59 06:59 Intake Total 1847 1162 100 Output Total 2175 2400 Balance -328 -1238 100 Weight 88.4 kg 90.3 kg General appearance: PRESENT: no acute distress, cooperative Head exam: PRESENT: atraumatic, normocephalic Eye exam: PRESENT: EOMI, PERRLA Mouth exam: PRESENT: moist Neck exam: PRESENT: full ROM Respiratory exam: PRESENT: clear to auscultation gabe, symmetrical, unlabored Cardiovascular exam: PRESENT: RRR, +S1, +S2 Pulses: PRESENT: normal radial pulses GI/Abdominal exam: PRESENT: normal bowel sounds, soft. ABSENT: rebound, tenderness Extremities exam: PRESENT: other - patient has atrophic changes on his lower extremity and minimal on upper extremity Musculoskeletal exam: PRESENT: other - quadriplegic Neurological exam: PRESENT: alert, awake, oriented to person, oriented to place Psychiatric exam: PRESENT: normal mood Skin exam: PRESENT: normal color Results Laboratory Results: 01/04/20 03:52 01/04/20 03:52 01/04/20 01/04/20 01/04/20 03:52 03:52 03:52 WBC 7.2 RBC 3.88 L Hgb 10.2 L Hct 29.8 L MCV 77 L MCH 26.2 L MCHC 34.2 RDW 15.4 H Plt Count 122 L Seg Neutrophils % 75.7 Sodium 128.8 L Potassium 3.4 L Chloride 99 Carbon Dioxide 23 Anion Gap 7 BUN 15 Creatinine 0.68 Est GFR ( Amer) > 60 Glucose 114 H Calcium 8.4 Total Bilirubin 0.4 AST 18 Alkaline Phosphatase 44 Total Protein 5.5 L Albumin 2.6 L TSH 1.41 12/31/19 12/31/19 12/31/19 13:00 13:00 16:55 Creatine Kinase 65 Troponin I 1.300 0.899 NT-Pro-B Natriuret Pep 7700 H 12/31/19 19:55 Creatine Kinase Troponin I 0.769 NT-Pro-B Natriuret Pep Impressions: KUB X-Ray 12/31/19 00:00 IMPRESSION: NO RADIOGRAPHIC EVIDENCE FOR ACUTE ABDOMINAL DISEASE. Chest X-Ray 12/31/19 13:10 IMPRESSION: Patchy bibasilar airspace opacities which are suspicious for infection. A 1.6 cm nodular opacity at the periphery of the right lung base is noted. Recommend radiographic follow-up after appropriate treatment interval to document resolution. Head CT 12/31/19 13:10 IMPRESSION: NORMAL BRAIN CT WITHOUT CONTRAST. EVIDENCE OF ACUTE STROKE: NO. Assessment and Plan - Diagnosis (1) Acute metabolic encephalopathy Is this a current diagnosis for this admission?: Yes Plan: - RESOLVED. He seemed much more alert and awake albeit a bit forgetful but he is able to hold a conversation - likely 2/2 UTI and sepsis (2) Atrial fibrillation with RVR Is this a current diagnosis for this admission?: Yes Plan: - paroxysmal, new onset a.fib - noted 01/03/20, no prior history - EKG showed a.fib - Chadsvasc score 1 - echo EF 60-65%, LV function normal - received cardizem bolus and drip - TSH 1.41 normal - currently transitioned to metoprolol - currently on therapeutic lovenox - given that this is paroxysmal and that it happened in the setting of sepsis due to UTI, correction AC is not really advisable unless it recurs or he has a high burden of a.fib outpatient (3) Urinary tract infection Qualifiers: Urinary tract infection type: catheter-associated UTI Indwelling urinary catheter type: indwelling urethral catheter Encounter type: initial encounter Qualified Code(s): T83.511A - Infection and inflammatory reaction due to indwelling urethral catheter, initial encounter; N39.0 - Urinary tract infection, site not specified Is this a current diagnosis for this admission?: Yes Plan: - Urine culture growing proteus - patient has a chronic alfredo secondary to quadriplegia - received cefepime - de escalated to cefazolin currently on D3 - alfredo replaced (4) Severe sepsis Is this a current diagnosis for this admission?: Yes Plan: - resolved. mental status back at baseline, afebrile, BP stable, lactic acidosis normal - secondary to UTI - continue management with abx for UTI (5) NSTEMI (non-ST elevated myocardial infarction) Is this a current diagnosis for this admission?: Yes Plan: - troponin 1.3>0.899>0.769 - EKG without ischemic changes - Type II PR from sepsis - cardio on board - on aspirin, lipitor, beta lorna (6) Gross hematuria Is this a current diagnosis for this admission?: Yes Plan: - received CBI yesterday - alfredo output seems much better today reddish orange but not grossly bloody - lucas 2/2 ongoing infection - may resume lovenox - hgb 10.2 - continue to monitor hgb (7) PRATIK (acute kidney injury) Is this a current diagnosis for this admission?: Yes Plan: Secondary to sepsis. - Crea 0.68 -Currently resolved. Recheck BMP in the morning. 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 Accu-Cheks, sliding scale insulin. detemir resumed (11) Quadriplegia, C5-C7 incomplete Is this a current diagnosis for this admission?: Yes (12) Hyponatremia Is this a current diagnosis for this admission?: Yes Plan: - chronic. Na on admission 134.4 down to 128 - will continue to monitor - Time Time Spent with patient: 25-34 minutes Anticipated Discharge Disposition: Nursing Home Facility Anticipated Discharge Timeframe: to be determined
[2020-01-04] MEDS ORDERED: POTASSIUM CHLORIDE 20 MEQ PACKET PO ONE (15:30)
[2020-01-04] MEDS: ZOLPIDEM TARTRATE 5 MG TABLET PO SCH (22:30)
[2020-01-04] MEDS: ATORVASTATIN CALCIUM 20 MG TABLET PO SCH (22:30)
[2020-01-05] MEDS: GABAPENTIN 300 MG CAPSULE PO SCH (05:50)
[2020-01-05] MEDS: CEFAZOLIN SODIUM 2 GM in DEXTROSE 5%-WATER 100 ML IV SCH ×5 (05:51→18:41)
[2020-01-05] MEDS: CAPSAICIN 0.025% CREAM 60 GM TOP SCH ×4 (05:52→21:48)
[2020-01-05 08:34] LABS: ABSOLUTE EOSINOPHILS # (AUTO) 0.2 10^3/uL (0.0-0.6); ABSOLUTE LYMPHOCYTES (AUTO) 0.8 10^3/uL (0.5-4.7); ABSOLUTE MONOCYTES (AUTO) 0.9 10^3/uL (0.1-1.4); ABSOLUTE NEUT (AUTO) 5.6 10^3/uL (1.7-8.2); BASOPHILS % (AUTO) 0.4 % (0-2); EOSINOPHILS % (AUTO) 2.8 % (0-6); HEMATOCRIT 31.4 % (37.9-51.0); HEMOGLOBIN 10.6 g/dL (13.5-17.0); LYMPHOCYTES % (AUTO) 10.8 % (13-45); MEAN CORPUSCULAR HEMOGLOBIN 25.9 pg (27.0-33.4); MEAN CORPUSCULAR HGB CONC 33.7 g/dL (32.0-36.0); MEAN CORPUSCULAR VOLUME 77 fl (80-97); MONOCYTES % (AUTO) 11.7 % (3-13); PLATELET COUNT 146 10^3/uL (150-450); RED BLOOD COUNT 4.09 10^6/uL (4.35-5.55); RED CELL DISTRIBUTION WIDTH 15.6 % (11.5-14.0); SEGMENTED NEUTROPHILS % (AUTO) 74.3 % (42-78); TOTAL CELLS COUNTED % (AUTO) 100 %; WHITE BLOOD COUNT 7.5 10^3/uL (4.0-10.5)
[2020-01-05 08:36] LABS: ALBUMIN 2.7 g/dL (3.5-5.0); ALKALINE PHOSPHATASE 46 U/L (38-126); ANION GAP 7 (5-19); ASPARTATE AMINO TRANSFERASE 22 U/L (17-59); BILIRUBIN,DIRECT 0.3 mg/dL (0.0-0.4); BILIRUBIN,TOTAL 0.5 mg/dL (0.2-1.3); BLOOD UREA NITROGEN 12 mg/dL (7-20); CALCIUM 8.4 mg/dL (8.4-10.2); CARBON DIOXIDE 26 mmol/L (22-30); CHLORIDE 94 mmol/L (98-107); GLUCOSE 82 mg/dL (75-110); POTASSIUM 3.6 mmol/L (3.6-5.0); TOTAL PROTEIN 5.6 g/dL (6.3-8.2)
[2020-01-05] MEDS: INSULIN LISPRO 100 UNIT/ML 3 ML VIAL SUBCUT SCH ×4 (09:14→21:48)
[2020-01-05] MEDS: POLYETHYLENE GLYCOL 3350 POWDER 17 GM/1 PACKET PO SCH (09:23)
[2020-01-05] MEDS: GUAIFENESIN SYRP 200 MG/10 ML UDC PO PRN ×2 (09:23→21:50)
[2020-01-05] MEDS: MAGNESIUM OXIDE 400 MG TABLET PO SCH (09:24)
[2020-01-05] MEDS: DOCUSATE SODIUM 100 MG CAPSULE PO SCH ×2 (09:24→18:42)
[2020-01-05] MEDS: INSULIN GLARGINE,HUM.REC.ANLOG 1,000 UNIT/10 ML VIAL SUBCUT SCH ×2 (09:24→21:45)
[2020-01-05] MEDS: FAMOTIDINE 20 MG TABLET PO SCH ×2 (09:24→18:42)
[2020-01-05] MEDS: ASPIRIN 81 MG TABLET, ENT COATED PO SCH (09:24)
[2020-01-05] MEDS: METOPROLOL SUCCINATE 25 MG TAB.SR.24H PO SCH (09:24)
[2020-01-05] MEDS: CLOPIDOGREL BISULFATE 75 MG TABLET PO SCH (09:24)
[2020-01-05] MEDS: FLUTICASONE NASAL SPRAY 50 MCG/SPRY 120 SPRAY/16 GM NASL SCH ×2 (09:25→18:42)
[2020-01-05] MEDS: ENOXAPARIN SODIUM INJ 100 MG/1 ML DISP.SYRIN SUBCUT SCH ×2 (09:26→21:47)
--- NOTE | 2020-01-05 13:55 | PDOC PROGRESS REPORT ---
Subjective Progress Note for:: 01/05/20 Subjective:: Patient was seen and examined. Looks comfortable. No overnight events. No more arrhythmia reported. He is in sinus rhythm on telemetry. Reason For Visit: AMS,SEVERE SEPSIS,PNA?,UTI Physical Exam Vital Signs: Temp Pulse Resp BP Pulse Ox 97.6 F 71 18 151/66 H 92 01/05/20 10:00 01/05/20 08:15 01/05/20 03:31 01/05/20 08:15 01/05/20 08:15 Intake & Output 01/04/20 01/05/20 01/06/20 06:59 06:59 06:59 Intake Total 1162 1814 Output Total 2400 0265 Balance -1358 -7021 Weight 90.3 kg 89.7 kg General appearance: PRESENT: no acute distress, cooperative Head exam: PRESENT: atraumatic, normocephalic Eye exam: PRESENT: conjunctiva pale, EOMI Respiratory exam: PRESENT: decreased breath sounds, symmetrical, unlabored Cardiovascular exam: PRESENT: RRR, +S1, +S2 Pulses: PRESENT: normal radial pulses GI/Abdominal exam: PRESENT: soft Rectal exam: PRESENT: deferred Musculoskeletal exam: PRESENT: deformity Neurological exam: PRESENT: alert, awake, oriented to person, oriented to place, oriented to time, oriented to situation Psychiatric exam: PRESENT: appropriate affect - I started Zac can I get [place] please Skin exam: PRESENT: dry Results Laboratory Results: 01/05/20 07:45 01/05/20 07:45 01/05/20 01/05/20 01/05/20 07:45 07:45 07:45 WBC 7.5 RBC 4.09 L Hgb 10.6 L Hct 31.4 L MCV 77 L MCH 25.9 L MCHC 33.7 RDW 15.6 H Plt Count 146 L Seg Neutrophils % 74.3 Sodium 127.1 L Potassium 3.6 Chloride 94 L Carbon Dioxide 26 Anion Gap 7 BUN 12 Creatinine 0.67 Est GFR ( Amer) > 60 Glucose 82 Serum Osmolality 262 L Calcium 8.4 Total Bilirubin 0.5 AST 22 Alkaline Phosphatase 46 Total Protein 5.6 L Albumin 2.7 L 12/31/19 13:00 Blood Blood Culture - Final NO GROWTH IN 5 DAYS 12/31/19 12/31/19 12/31/19 13:00 13:00 16:55 Creatine Kinase 65 Troponin I 1.300 0.899 NT-Pro-B Natriuret Pep 7700 H 12/31/19 19:55 Creatine Kinase Troponin I 0.769 NT-Pro-B Natriuret Pep Impressions: KUB X-Ray 12/31/19 00:00 IMPRESSION: NO RADIOGRAPHIC EVIDENCE FOR ACUTE ABDOMINAL DISEASE. Chest X-Ray 12/31/19 13:10 IMPRESSION: Patchy bibasilar airspace opacities which are suspicious for infection. A 1.6 cm nodular opacity at the periphery of the right lung base is noted. Recommend radiographic follow-up after appropriate treatment interval to document resolution. Head CT 12/31/19 13:10 IMPRESSION: NORMAL BRAIN CT WITHOUT CONTRAST. EVIDENCE OF ACUTE STROKE: NO. Assessment & Plan - Diagnosis (1) Atrial fibrillation with RVR Is this a current diagnosis for this admission?: Yes Plan: Presently his atrial fibrillation episodes have occurred in the setting of sepsis and infection and overall poor health Given increased stroke risk and may be reasonable to pursue systemic anticoagulation as he may have more episodes. The decision to forego systemic anticoagulation can be based after a period of outpatient ambulatory cardiac monitoring. This can be arranged later. Continue low-dose beta-lorna to suppress these episodes and also decrease the rate of atrial fibrillation ventricular response. (2) Elevated troponin Is this a current diagnosis for this admission?: Yes Plan: Likely multifactorial. Absent chest pain this is likely a reflection of sepsis and overall ill health rather than acute coronary syndrome Also episodes of tachycardia can produce demand mediated ischemia and elevation in troponin does not indicate the presence of acute coronary syndrome although this cannot be excluded without her stratification. Given ongoing illness is not ideal to pursue. (3) Sepsis Qualifiers: Sepsis type: sepsis due to unspecified organism Sepsis acute organ dysfunction status: unspecified Qualified Code(s): A41.9 - Sepsis, unspecified organism Is this a current diagnosis for this admission?: Yes Plan: Antibiotics per primary team. Patient appears to be improving slowly.
--- NOTE | 2020-01-05 19:40 | PDOC PROGRESS REPORT ---
Subjective Progress Note for:: 01/05/20 Subjective:: JACINDA GEORGES is a 64 year old male with history of quadriplegia C5-C7 spinal cord injury, neurogenic bladder, chronic Alfredo, diabetes, chronic Alfredo, who resides in [facility], presents from long term for evaluation of altered mental status. Patient is usually able to communicate and carry conversation though it is noted in his med rec that he has history of aphasia, but was noted to become less responsive and confused today. No fever was noted in long term. EMS was called. Patient was noted to be hypotensive in the ER with systolic blood pressures in the 80s. Lactic acid is also elevated. Patient was fluid resuscitated with 2 L normal saline. According to ER nurse, patient was able to communicate his name and location upon arrival though was altered. During my encounter, patient is very lethargic and not able to engage in any conversation whatsoever. He has received antibiotics in the ER with concerns for severe sepsis from UTI. Metabolic encephalopathy improved and succeeding days. Urine culture grew Proteus antibiotics the escalated to cefazolin from cefepime on 01/02/2020. He developed hematuria on 2nd day of admission and was started on CBI. He had an episode of paroxysmal a.fib 01/02/20, was briefly put on a Cardizem drip which controlled his heart rate cardiology was consulted who recommended low dose beta lorna. D4 hospital stay 01/03/20. He was seen and examined at bedside. He is awake, alert, oriented to self and place, he is forgetful at times. He denies any SOB, chest pain. Urine in the urine bag reddish orange. Spoke to Dr. Endy Frank regarding his paroxysmal A. fib today who recommended low-dose beta-lorna. 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 D5 hospital stay 01/04/20. He was seen and examined at bedside. Denies any pain, no chest pain, no SOB. Still noted to have minimal hematuria on alfredo drain. He is alert, awake and oriented. He is D3 of cefazolin for proteus. Per NF , he had 1 episode of SVT that terminated with adenosine. He is currently on metoprolol 25 for paroxysmal new onset a.fib. Cardiology aware. D6 Hospital stay 01/05/20. He was seen and examined at bedside. Conversant, awake and alert. Denies any abdominal pain, chest pain or SOB. Alfredo draining faintly orange. Sodium noted to be slowly trending down. Ordered urine and serum osmolality. stopped his gabapentin as this can cause hyponatremia. Fluid restriction for now pending osmolality studies. Reason For Visit: AMS,SEVERE SEPSIS,PNA?,UTI Physical Exam Vital Signs: Temp Pulse Resp BP Pulse Ox 97.6 F 93 18 151/66 H 92 01/05/20 10:00 01/05/20 14:00 01/05/20 03:31 01/05/20 08:15 01/05/20 08:15 Intake & Output 01/04/20 01/05/20 01/06/20 06:59 06:59 06:59 Intake Total 1162 1814 Output Total 2400 6065 Balance -1238 -1511 Weight 90.3 kg 89.7 kg 89.7 kg General appearance: PRESENT: no acute distress, cooperative, hard of hearing Head exam: PRESENT: atraumatic, normocephalic Eye exam: PRESENT: EOMI, PERRLA Ear exam: PRESENT: normal external ear exam Mouth exam: PRESENT: moist Neck exam: PRESENT: full ROM Respiratory exam: PRESENT: clear to auscultation gabe, symmetrical, unlabored Cardiovascular exam: PRESENT: RRR, +S1, +S2 Pulses: PRESENT: normal radial pulses GI/Abdominal exam: PRESENT: normal bowel sounds, soft. ABSENT: rebound, tenderness Musculoskeletal exam: PRESENT: other - quadriplegic Neurological exam: PRESENT: alert, awake, oriented to person, oriented to place, oriented to time Psychiatric exam: PRESENT: normal mood Skin exam: PRESENT: normal color Results Laboratory Results: 01/05/20 07:45 01/05/20 07:45 01/05/20 01/05/20 01/05/20 07:45 07:45 07:45 WBC 7.5 RBC 4.09 L Hgb 10.6 L Hct 31.4 L MCV 77 L MCH 25.9 L MCHC 33.7 RDW 15.6 H Plt Count 146 L Seg Neutrophils % 74.3 Sodium 127.1 L Potassium 3.6 Chloride 94 L Carbon Dioxide 26 Anion Gap 7 BUN 12 Creatinine 0.67 Est GFR ( Amer) > 60 Glucose 82 Serum Osmolality 262 L Calcium 8.4 Total Bilirubin 0.5 AST 22 Alkaline Phosphatase 46 Total Protein 5.6 L Albumin 2.7 L 12/31/19 14:30 Blood Blood Culture - Final NO GROWTH IN 5 DAYS 12/31/19 13:00 Blood Blood Culture - Final NO GROWTH IN 5 DAYS 12/31/19 12/31/19 12/31/19 13:00 13:00 16:55 Creatine Kinase 65 Troponin I 1.300 0.899 NT-Pro-B Natriuret Pep 7700 H 12/31/19 19:55 Creatine Kinase Troponin I 0.769 NT-Pro-B Natriuret Pep Impressions: KUB X-Ray 12/31/19 00:00 IMPRESSION: NO RADIOGRAPHIC EVIDENCE FOR ACUTE ABDOMINAL DISEASE. Chest X-Ray 12/31/19 13:10 IMPRESSION: Patchy bibasilar airspace opacities which are suspicious for infection. A 1.6 cm nodular opacity at the periphery of the right lung base is noted. Recommend radiographic follow-up after appropriate treatment interval to document resolution. Head CT 12/31/19 13:10 IMPRESSION: NORMAL BRAIN CT WITHOUT CONTRAST. EVIDENCE OF ACUTE STROKE: NO. Assessment and Plan - Diagnosis (1) Hyponatremia Is this a current diagnosis for this admission?: Yes Plan: - chronic. Na on admission 134.4 down to 128>127 - ordered urine and serum osmolality - he is euvolemic. will fluid restrict for now - will continue to monitor (2) Acute metabolic encephalopathy Is this a current diagnosis for this admission?: Yes Plan: - RESOLVED. He seemed much more alert and awake albeit a bit forgetful but he is able to hold a conversation - likely 2/2 UTI and sepsis (3) Atrial fibrillation with RVR Is this a current diagnosis for this admission?: Yes Plan: - paroxysmal, new onset a.fib - noted 01/03/20, no prior history - EKG showed a.fib - Chadsvasc score 1 - echo EF 60-65%, LV function normal - received cardizem bolus and drip - TSH 1.41 normal - currently transitioned to metoprolol - currently on therapeutic lovenox - given that this is paroxysmal and that it happened in the setting of sepsis due to UTI, correction AC is not really advisable unless it recurs or he has a high burden of a.fib outpatient (4) Urinary tract infection Qualifiers: Urinary tract infection type: catheter-associated UTI Indwelling urinary catheter type: indwelling urethral catheter Encounter type: initial encounter Qualified Code(s): T83.511A - Infection and inflammatory reaction due to indwelling urethral catheter, initial encounter; N39.0 - Urinary tract infection, site not specified Is this a current diagnosis for this admission?: Yes Plan: - Urine culture growing proteus - patient has a chronic alfredo secondary to quadriplegia - received cefepime - de escalated to cefazolin currently on D4 - alfredo replaced (5) Severe sepsis Is this a current diagnosis for this admission?: Yes Plan: - resolved. mental status back at baseline, afebrile, BP stable, lactic acidosis normal - secondary to UTI - continue management with abx for UTI (6) NSTEMI (non-ST elevated myocardial infarction) Is this a current diagnosis for this admission?: Yes Plan: - troponin 1.3>0.899>0.769 - EKG without ischemic changes - Type II MT from sepsis - cardio on board - on aspirin, lipitor, beta lorna (7) Gross hematuria Is this a current diagnosis for this admission?: Yes Plan: - received CBI yesterday - alfredo output seems much better today reddish orange but not grossly bloody - lucas 2/2 ongoing infection - may resume lovenox - hgb 10.6 - continue to monitor hgb (8) PRATIK (acute kidney injury) Is this a current diagnosis for this admission?: Yes Plan: Secondary to sepsis. - Crea 0.68 -Currently resolved. Recheck BMP in the morning. 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 Accu-Cheks, sliding scale insulin. detemir resumed (12) Quadriplegia, C5-C7 incomplete Is this a current diagnosis for this admission?: Yes - Time Time Spent with patient: 25-34 minutes Anticipated Discharge Disposition: Senior Care Facility Anticipated Discharge Timeframe: to be determined
[2020-01-05] MEDS: ZOLPIDEM TARTRATE 5 MG TABLET PO SCH (21:47)
[2020-01-05] MEDS: ATORVASTATIN CALCIUM 20 MG TABLET PO SCH (21:47)
[2020-01-05 21:58] LABS: ANION GAP 9 (5-19); BLOOD UREA NITROGEN 11 mg/dL (7-20); CALCIUM 8.3 mg/dL (8.4-10.2); CARBON DIOXIDE 25 mmol/L (22-30); CHLORIDE 93 mmol/L (98-107); GLUCOSE 111 mg/dL (75-110); POTASSIUM 3.5 mmol/L (3.6-5.0)
[2020-01-06] MEDS: CEFAZOLIN SODIUM 2 GM in DEXTROSE 5%-WATER 100 ML IV SCH ×3 (00:39→13:24)
[2020-01-06] MEDS: CAPSAICIN 0.025% CREAM 60 GM TOP SCH ×3 (06:43→21:19)
[2020-01-06 07:37] LABS: HEMATOCRIT 32.6 % (37.9-51.0); HEMOGLOBIN 11.1 g/dL (13.5-17.0); MEAN CORPUSCULAR HGB CONC 34.1 g/dL (32.0-36.0); MEAN CORPUSCULAR VOLUME 76 fl (80-97); PLATELET COUNT 164 10^3/uL (150-450); RED BLOOD COUNT 4.27 10^6/uL (4.35-5.55); RED CELL DISTRIBUTION WIDTH 15.1 % (11.5-14.0); WHITE BLOOD COUNT 6.7 10^3/uL (4.0-10.5)
[2020-01-06 07:54] LABS: ALKALINE PHOSPHATASE 51 U/L (38-126); ANION GAP 9 (5-19); ASPARTATE AMINO TRANSFERASE 23 U/L (17-59); BILIRUBIN,DIRECT 0.3 mg/dL (0.0-0.4); BILIRUBIN,TOTAL 0.5 mg/dL (0.2-1.3); BLOOD UREA NITROGEN 9 mg/dL (7-20); CALCIUM 8.3 mg/dL (8.4-10.2); CARBON DIOXIDE 25 mmol/L (22-30); CHLORIDE 92 mmol/L (98-107); GLUCOSE 87 mg/dL (75-110); POTASSIUM 3.4 mmol/L (3.6-5.0); TOTAL PROTEIN 6.2 g/dL (6.3-8.2)
[2020-01-06 08:10] LABS: ABSOLUTE LYMPHOCYTES# (MANUAL) 0.6 10^3/uL (0.5-4.7); ABSOLUTE MONOCYTES # (MANUAL) 0.6 10^3/uL (0.1-1.4); BAND NEUTROPHILS % (MANUAL) 1 % (3-5); BASOPHILS % (MANUAL) 0 % (0-2); EOSINOPHILS % (MANUAL) 1 % (0-6); LYMPHOCYTES % (MANUAL) 9 % (13-45); METAMYELOCYTES % (MANUAL) 1 % (0-1); MONOCYTES % (MANUAL) 9 % (3-13); SEGMENTED NEUTROPHILS % (MAN) 79 % (42-78); TOTAL CELLS COUNTED 100
[2020-01-06 08:11] LABS: ANISOCYTOSIS SLIGHT; OVALOCYTES SLIGHT; PLATELET COMMENT ADEQUATE; POIKILOCYTOSIS SLIGHT; POLYCHROMASIA SLIGHT
[2020-01-06] MEDS: INSULIN LISPRO 100 UNIT/ML 3 ML VIAL SUBCUT SCH ×4 (09:37→21:17)
[2020-01-06] MEDS: INSULIN GLARGINE,HUM.REC.ANLOG 1,000 UNIT/10 ML VIAL SUBCUT SCH ×2 (09:38→21:18)
[2020-01-06] MEDS: FLUTICASONE NASAL SPRAY 50 MCG/SPRY 120 SPRAY/16 GM NASL SCH ×2 (09:39→17:22)
[2020-01-06] MEDS: ASPIRIN 81 MG TABLET, ENT COATED PO SCH (09:40)
[2020-01-06] MEDS: POLYETHYLENE GLYCOL 3350 POWDER 17 GM/1 PACKET PO SCH (09:40)
[2020-01-06] MEDS: ENOXAPARIN SODIUM INJ 100 MG/1 ML DISP.SYRIN SUBCUT SCH ×2 (09:40→21:16)
[2020-01-06] MEDS: DOCUSATE SODIUM 100 MG CAPSULE PO SCH ×2 (09:41→17:21)
[2020-01-06] MEDS: MAGNESIUM OXIDE 400 MG TABLET PO SCH (09:41)
[2020-01-06] MEDS: FAMOTIDINE 20 MG TABLET PO SCH ×2 (09:41→17:21)
[2020-01-06] MEDS: METOPROLOL SUCCINATE 25 MG TAB.SR.24H PO SCH (09:42)
[2020-01-06] MEDS: CLOPIDOGREL BISULFATE 75 MG TABLET PO SCH (10:08)
--- NOTE | 2020-01-06 14:52 | PDOC PROGRESS REPORT ---
Subjective Progress Note for:: 01/06/20 Subjective:: JACINDA GEORGES is a 64 year old male with history of quadriplegia C5-C7 spinal cord injury, neurogenic bladder, chronic Alfredo, diabetes, chronic Alfredo, who resides in [facility], [facility] status. Patient is usually able to communicate and carry conversation though it is noted in his med rec that he has history of aphasia, but was noted to become less responsive and confused today. No fever was noted in [facility]. EMS was called. Patient was noted to be hypotensive in the ER with systolic blood pressures in the 80s. Lactic acid is also elevated. Patient was fluid resuscitated with 2 L normal saline. According to ER nurse, patient was able to communicate his name and location upon arrival though was altered. During my encounter, patient is very lethargic and not able to engage in any conversation whatsoever. He has received antibiotics in the ER with concerns for severe sepsis from UTI. Metabolic encephalopathy improved and succeeding days. Urine culture grew Proteus antibiotics the escalated to cefazolin from cefepime on 01/02/2020. He developed hematuria on 2nd day of admission and was started on CBI. He had an episode of paroxysmal a.fib 01/02/20, was briefly put on a Cardizem drip which controlled his heart rate cardiology was consulted who recommended low dose beta lorna. D4 hospital stay 01/03/20. He was seen and examined at bedside. He is awake, alert, oriented to self and place, he is forgetful at times. He denies any SOB, chest pain. Urine in the urine bag reddish orange. Spoke to Dr. Endy Frank regarding his paroxysmal A. fib today who recommended low-dose beta-lorna. 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 D5 hospital stay 01/04/20. He was seen and examined at bedside. Denies any pain, no chest pain, no SOB. Still noted to have minimal hematuria on alfredo drain. He is alert, awake and oriented. He is D3 of cefazolin for proteus. Per NF , he had 1 episode of SVT that terminated with adenosine. He is currently on metoprolol 25 for paroxysmal new onset a.fib. Cardiology aware. D6 Hospital stay 01/05/20. He was seen and examined at bedside. Conversant, awake and alert. Denies any abdominal pain, chest pain or SOB. Alfredo draining faintly orange. Sodium noted to be slowly trending down. Ordered urine and serum osmolality. stopped his gabapentin as this can cause hyponatremia. Fluid restriction for now pending osmolality studies. D7 Hospital stay 01/06/20. He was seen and examined at bedside. He denies any abdominal pain, nausea, vomiting. Appetite is good. His sodium seems to have stabilized after being put on fluid restriction. Na 126.9>126.4 today. HE is eager to go home. Reason For Visit: AMS,SEVERE SEPSIS,PNA?,UTI Physical Exam Vital Signs: Temp Pulse Resp BP Pulse Ox 97.4 F 91 16 132/77 H 95 01/06/20 11:00 01/06/20 11:00 01/06/20 11:00 01/06/20 11:00 01/06/20 11:00 Intake & Output 01/05/20 01/06/20 01/07/20 06:59 06:59 06:59 Intake Total 1814 240 580 Output Total 3321 9738 350 Balance -1511 -4485 230 Weight 89.7 kg 87.5 kg General appearance: PRESENT: no acute distress, cooperative Head exam: PRESENT: atraumatic, normocephalic Eye exam: PRESENT: EOMI, PERRLA Mouth exam: PRESENT: moist Neck exam: PRESENT: full ROM Respiratory exam: PRESENT: clear to auscultation gabe, symmetrical, unlabored. ABSENT: rales Cardiovascular exam: PRESENT: RRR, +S1, +S2 Pulses: PRESENT: normal radial pulses GI/Abdominal exam: PRESENT: normal bowel sounds, soft. ABSENT: tenderness Gentrourinary exam: PRESENT: indwelling catheter Musculoskeletal exam: PRESENT: other - quadriplegic Neurological exam: PRESENT: alert, awake, oriented to person, oriented to place, oriented to time, oriented to situation Psychiatric exam: PRESENT: normal mood Skin exam: PRESENT: normal color Results Laboratory Results: 01/06/20 07:18 01/06/20 07:18 01/05/20 01/05/20 01/05/20 20:00 20:43 21:33 WBC RBC Hgb Hct MCV MCH MCHC RDW Plt Count Seg Neutrophils % Sodium Cancelled 126.9 L Potassium Cancelled 3.5 L Chloride Cancelled 93 L Carbon Dioxide Cancelled 25 Anion Gap Cancelled 9 BUN Cancelled 11 Creatinine Cancelled 0.63 Est GFR ( Amer) Cancelled > 60 Est GFR (Non-Af Amer) Cancelled Glucose Cancelled 111 H Calcium Cancelled 8.3 L Total Bilirubin AST Alkaline Phosphatase Total Protein Albumin Urine Osmolality 275 L 01/06/20 01/06/20 07:18 07:18 WBC 6.7 RBC 4.27 L Hgb 11.1 L Hct 32.6 L MCV 76 L MCH 26.0 L MCHC 34.1 RDW 15.1 H Plt Count 164 Seg Neutrophils % Not Reportable Sodium 126.4 L Potassium 3.4 L Chloride 92 L Carbon Dioxide 25 Anion Gap 9 BUN 9 Creatinine 0.65 Est GFR ( Amer) > 60 Est GFR (Non-Af Amer) Glucose 87 Calcium 8.3 L Total Bilirubin 0.5 AST 23 Alkaline Phosphatase 51 Total Protein 6.2 L Albumin 3.0 L Urine Osmolality 12/31/19 13:00 Catheterized Urine Urine Culture - Final Proteus Mirabilis Pseudomonas Aeruginosa Mrsa (Meth Resis Staph Aureus) 12/31/19 14:30 Blood Blood Culture - Final NO GROWTH IN 5 DAYS 12/31/19 13:00 Blood Blood Culture - Final NO GROWTH IN 5 DAYS 12/31/19 12/31/19 12/31/19 13:00 13:00 16:55 Creatine Kinase 65 Troponin I 1.300 0.899 NT-Pro-B Natriuret Pep 7700 H 12/31/19 19:55 Creatine Kinase Troponin I 0.769 NT-Pro-B Natriuret Pep Impressions: KUB X-Ray 12/31/19 00:00 IMPRESSION: NO RADIOGRAPHIC EVIDENCE FOR ACUTE ABDOMINAL DISEASE. Chest X-Ray 12/31/19 13:10 IMPRESSION: Patchy bibasilar airspace opacities which are suspicious for infection. A 1.6 cm nodular opacity at the periphery of the right lung base is noted. Recommend radiographic follow-up after appropriate treatment interval to document resolution. Head CT 12/31/19 13:10 IMPRESSION: NORMAL BRAIN CT WITHOUT CONTRAST. EVIDENCE OF ACUTE STROKE: NO. Assessment and Plan - Diagnosis (1) Hyponatremia Is this a current diagnosis for this admission?: Yes Plan: - chronic. Na on admission 134.4 down to 128>127 - Serum osmolality 262, urine osmolality 275, urine Na 56 - consistent with SIADH - will fluid restrict to 1L - will continue to monitor (2) Acute metabolic encephalopathy Is this a current diagnosis for this admission?: Yes Plan: - RESOLVED. He seemed much more alert and awake albeit a bit forgetful but he is able to hold a conversation - likely 2/2 UTI and sepsis (3) Atrial fibrillation with RVR Is this a current diagnosis for this admission?: Yes Plan: - paroxysmal, new onset a.fib - noted 01/03/20, no prior history - EKG showed a.fib - Chadsvasc score 1 - echo EF 60-65%, LV function normal - received cardizem bolus and drip - TSH 1.41 normal - currently transitioned to metoprolol - currently on therapeutic lovenox - given that this is paroxysmal and that it happened in the setting of sepsis due to UTI, retirement AC is not really advisable unless it recurs or he has a high burden of a.fib outpatient (4) Urinary tract infection Qualifiers: Urinary tract infection type: catheter-associated UTI Indwelling urinary catheter type: indwelling urethral catheter Encounter type: initial encounter Qualified Code(s): T83.511A - Infection and inflammatory reaction due to indwelling urethral catheter, initial encounter; N39.0 - Urinary tract infection, site not specified Is this a current diagnosis for this admission?: Yes Plan: - Urine culture growing proteus - patient has a chronic alfredo secondary to quadriplegia - received cefepime - de escalated to cefazolin currently on 4 days. Switched to oral cefuroxime. - alfredo replaced (5) Severe sepsis Is this a current diagnosis for this admission?: Yes Plan: - resolved. mental status back at baseline, afebrile, BP stable, lactic acidosis normal - secondary to UTI - continue management with abx for UTI (6) NSTEMI (non-ST elevated myocardial infarction) Is this a current diagnosis for this admission?: Yes Plan: - troponin 1.3>0.899>0.769 - EKG without ischemic changes - Type II CA from sepsis - cardio on board - on aspirin, lipitor, beta lorna (7) Gross hematuria Is this a current diagnosis for this admission?: Yes Plan: - received CBI yesterday - alfredo output seems much better today reddish orange but not grossly bloody - likley 2/2 ongoing infection - may resume lovenox - hgb 10.6 - continue to monitor hgb (8) PRATIK (acute kidney injury) Is this a current diagnosis for this admission?: Yes Plan: Secondary to sepsis. - Crea 0.68 -Currently resolved. Recheck BMP in the morning. 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 Accu-Cheks, sliding scale insulin. detemir resumed (12) Quadriplegia, C5-C7 incomplete Is this a current diagnosis for this admission?: Yes - Time Time Spent with patient: 25-34 minutes Anticipated Discharge Disposition: [facility] Anticipated Discharge Timeframe: within 48 hours
[2020-01-06] MEDS: POTASSI CL 20 MEQ/50 ML RIDER 20 MEQ/50 ML RTUPB IV SCH ×3 (15:47→21:17)
[2020-01-06] MEDS: CEFUROXIME 500 MG TABLET PO SCH (17:21)
[2020-01-06] MEDS: ATORVASTATIN CALCIUM 20 MG TABLET PO SCH (21:16)
[2020-01-06] MEDS: ZOLPIDEM TARTRATE 5 MG TABLET PO SCH (22:16)
[2020-01-07 08:14] LABS: HEMATOCRIT 35.5 % (37.9-51.0); MEAN CORPUSCULAR HEMOGLOBIN 25.8 pg (27.0-33.4); MEAN CORPUSCULAR VOLUME 76 fl (80-97); PLATELET COUNT 192 10^3/uL (150-450); RED BLOOD COUNT 4.66 10^6/uL (4.35-5.55); RED CELL DISTRIBUTION WIDTH 15.7 % (11.5-14.0); WHITE BLOOD COUNT 7.1 10^3/uL (4.0-10.5)
[2020-01-07 08:29] LABS: ALBUMIN 3.3 g/dL (3.5-5.0); ALKALINE PHOSPHATASE 57 U/L (38-126); ANION GAP 10 (5-19); ASPARTATE AMINO TRANSFERASE 43 U/L (17-59); BILIRUBIN,DIRECT 0.3 mg/dL (0.0-0.4); BILIRUBIN,TOTAL 0.6 mg/dL (0.2-1.3); BLOOD UREA NITROGEN 9 mg/dL (7-20); CALCIUM 8.6 mg/dL (8.4-10.2); CARBON DIOXIDE 23 mmol/L (22-30); CHLORIDE 92 mmol/L (98-107); GLUCOSE 121 mg/dL (75-110); POTASSIUM 3.9 mmol/L (3.6-5.0); TOTAL PROTEIN 6.5 g/dL (6.3-8.2)
[2020-01-07 08:47] LABS: ABSOLUTE LYMPHOCYTES# (MANUAL) 0.5 10^3/uL (0.5-4.7); ABSOLUTE MONOCYTES # (MANUAL) 0.5 10^3/uL (0.1-1.4); BASOPHILS % (MANUAL) 0 % (0-2); EOSINOPHILS % (MANUAL) 0 % (0-6); LYMPHOCYTES % (MANUAL) 7 % (13-45); MONOCYTES % (MANUAL) 7 % (3-13); SEGMENTED NEUTROPHILS % (MAN) 86 % (42-78); TOTAL CELLS COUNTED 100
[2020-01-07 08:49] LABS: ANISOCYTOSIS 1+; HYPOCHROMASIA SLIGHT; OVALOCYTES 1+; PLATELET COMMENT ADEQUATE
[2020-01-07 08:50] LABS: PLATELET CLUMPS PRESENT
[2020-01-07] MEDS: INSULIN LISPRO 100 UNIT/ML 3 ML VIAL SUBCUT SCH ×3 (09:30→17:08)
[2020-01-07] MEDS: METOPROLOL SUCCINATE 25 MG TAB.SR.24H PO SCH (10:27)
[2020-01-07] MEDS: DOCUSATE SODIUM 100 MG CAPSULE PO SCH (10:27)
[2020-01-07] MEDS: POLYETHYLENE GLYCOL 3350 POWDER 17 GM/1 PACKET PO SCH (10:27)
[2020-01-07] MEDS: ASPIRIN 81 MG TABLET, ENT COATED PO SCH (10:28)
[2020-01-07] MEDS: CLOPIDOGREL BISULFATE 75 MG TABLET PO SCH (10:28)
[2020-01-07] MEDS: INSULIN GLARGINE,HUM.REC.ANLOG 1,000 UNIT/10 ML VIAL SUBCUT SCH (10:28)
[2020-01-07] MEDS: FAMOTIDINE 20 MG TABLET PO SCH (10:28)
[2020-01-07] MEDS: ENOXAPARIN SODIUM INJ 100 MG/1 ML DISP.SYRIN SUBCUT SCH (10:28)
[2020-01-07] MEDS: CAPSAICIN 0.025% CREAM 60 GM TOP SCH ×2 (10:29→17:08)
[2020-01-07] MEDS: CEFUROXIME 500 MG TABLET PO SCH (10:31)
[2020-01-07] MEDS: FLUTICASONE NASAL SPRAY 50 MCG/SPRY 120 SPRAY/16 GM NASL SCH (10:32)
[2020-01-07] MEDS ORDERED: SODIUM CHLORIDE 1 GM TABLET PO ONE (11:30)
[2020-01-07] MEDS ORDERED: MAGNESIUM OXIDE 400 MG TABLET PO SCH (12:00)
--- NOTE | 2020-01-07 14:10 | PDOC DISCHARGE SUMMARY ---
Impression - Admit/DC Date/PCP Admission Date/Primary Care Provider: 12/31/19 17:01 FERMIN JOHNSON MD Discharge Date: 01/07/20 - Discharge Diagnosis (1) Hyponatremia Is this a current diagnosis for this admission?: Yes (2) Acute metabolic encephalopathy Is this a current diagnosis for this admission?: Yes (3) Atrial fibrillation with RVR Is this a current diagnosis for this admission?: Yes (4) Urinary tract infection Is this a current diagnosis for this admission?: Yes (5) Severe sepsis Is this a current diagnosis for this admission?: Yes (6) NSTEMI (non-ST elevated myocardial infarction) Is this a current diagnosis for this admission?: Yes (7) Gross hematuria Is this a current diagnosis for this admission?: Yes (8) PRATIK (acute kidney injury) Is this a current diagnosis for this admission?: Yes (9) Hypokalemia Is this a current diagnosis for this admission?: Yes (10) SVT (supraventricular tachycardia) Is this a current diagnosis for this admission?: Yes (11) Diabetes Is this a current diagnosis for this admission?: Yes (12) Quadriplegia, C5-C7 incomplete Is this a current diagnosis for this admission?: Yes - Additional Information Resuscitation Status: Full Code Discharge Diet: As Tolerated Discharge Activity: Activity As Tolerated Referrals: EMMA TRACEY MD [ACTIVE STAFF] - Prescriptions: Cefuroxime Axetil [Ceftin 500 mg Tablet] 500 mg PO BID 3 Days #6 tablet Apixaban [Eliquis 5 mg Tablet] 5 mg PO BID 30 Days #60 tablet Sodium Chloride [Sodium Chloride 1 gm Tablet] 1 gm PO DAILY 2 Days #4 tablet Metoprolol Succinate [Toprol Xl 25 mg Tab.sr] 25 mg PO DAILY 60 Days #60 tab.sr.24h Home Medications: Docusate Sodium [Colace 100 mg Capsule] 100 mg PO BID capsule 02/11/16 Cetirizine HCl [Zyrtec] 10 mg PO DAILYP PRN 11/20/16 Acetaminophen [Tylenol] 650 mg PO Q8HP PRN 08/16/19 Ammonium Lactate [Lac-Hydrin 12% Lotion 225Gm/Bottle] 1 applic TP DAILY 08/16/19 Aspirin [Ecotrin 81 mg EC Tablet] 81 mg PO DAILY 08/16/19 Atorvastatin Calcium [Lipitor 20 mg Tablet] 20 mg PO QHS 08/16/19 Baclofen [Baclofen 20 mg Tablet] 20 mg PO Q6 08/16/19 Fluticasone Propionate [Flonase Nasal Adrian 50 Mcg/Adrian 16 gm] 1 spray NASL BID 08/16/19 Furosemide [Lasix 20 mg Tablet] 20 mg PO DAILY 08/16/19 Gabapentin 400 mg PO Q8 08/16/19 Insulin Detemir [Levemir] 20 units SUBCUT BID 08/16/19 Magnesium Oxide [Mag-Ox 400 mg Tablet] 400 mg PO DAILY 08/16/19 Menthol [Biofreeze] 1 applic TP Q4HP PRN 08/16/19 Metformin HCl [Glucophage 500 mg Tablet] 500 mg PO BID 08/16/19 Simethicone 125 mg PO Q6HP PRN 08/16/19 Clopidogrel Bisulfate [Plavix 75 mg Tablet] 75 mg PO DAILY 30 Days #30 tablet 08/20/19 Capsaicin [Zostrix 0.025% Cream 60 gm] 1 applic TOP Q8 12/31/19 Ciclopirox/Skin Cleanser No.40 [Loprox 0.77% Suspension Kit] 1 applic TOP DAILY 12/31/19 Famotidine [Pepcid 20 mg Tablet] 20 mg PO BID 12/31/19 Lidocaine HCl [Aspercreme Lidocaine] 1 applic TOP BID 12/31/19 Zolpidem Tartrate [Ambien] 10 mg PO QHS 12/31/19 Apixaban [Eliquis 5 mg Tablet] 5 mg PO BID 30 Days #60 tablet 01/07/20 Cefuroxime Axetil [Ceftin 500 mg Tablet] 500 mg PO BID 3 Days #6 tablet 01/07/20 Metoprolol Succinate [Toprol Xl 25 mg Tab.sr] 25 mg PO DAILY 60 Days #60 tab.sr.24h 01/07/20 Sodium Chloride [Sodium Chloride 1 gm Tablet] 1 gm PO DAILY 2 Days #4 tablet 01/07/20 History of Present Illiness History of Present Illness: KATHERINE GEORGES is a 64 year old male, KATHERINE GEORGES is a 64 year old male with history of quadriplegia C5-C7 spinal cord injury, neurogenic bladder, chronic Alfredo, diabetes, chronic Alfredo, who resides in [facility], [facility]. Patient is usually able to communicate and carry conversation though it is noted in his med rec that he has history of aphasia, but was noted to become less responsive and confused today. No fever was noted in [facility]. EMS was called. Patient was noted to be hypotensive in the ER with systolic blood pressures in the 80s. Lactic acid is also elevated. Patient was fluid resuscitated with 2 L normal saline. According to ER nurse, patient was able to communicate his name and location upon arrival though was altered. During my encounter, patient is very lethargic and not able to engage in any conversation whatsoever. He has received antibiotics in the ER with concerns for severe sepsis from UTI. Hospital Course Hospital Course: He was started on IV fluids and abx for his UTI. His mental status slowly returned to baseline. D4 hospital stay 01/03/20. He was seen and examined at bedside. He is awake, alert, oriented to self and place, he is forgetful at times. He denies any SOB, chest pain. Urine in the urine bag reddish orange. Spoke to Dr. Emma Tracey regarding his paroxysmal A. fib today who recommended low-dose beta-lorna. 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 D5 hospital stay 01/04/20. He was seen and examined at bedside. Denies any pain, no chest pain, no SOB. Still noted to have minimal hematuria on alfredo drain. He is alert, awake and oriented. He is D3 of cefazolin for proteus. Per NF , he had 1 episode of SVT that terminated with adenosine. He is currently on metoprolol 25 for paroxysmal new onset a.fib. Cardiology aware. D6 Hospital stay 01/05/20. He was seen and examined at bedside. Conversant, awake and alert. Denies any abdominal pain, chest pain or SOB. Alfredo draining faintly orange. Sodium noted to be slowly trending down. Ordered urine and serum osmolality. stopped his gabapentin as this can cause hyponatremia. Fluid restriction for now pending osmolality studies. D7 Hospital stay 01/06/20. He was seen and examined at bedside. He denies any abdominal pain, nausea, vomiting. Appetite is good. His sodium seems to have stabilized after being put on fluid restriction. Na 126.9>126.4 today. HE is eager to go home. Physical Exam Vital Signs: Temp Pulse Resp BP Pulse Ox 97.9 F 80 16 145/85 H 95 01/07/20 11:47 01/07/20 11:47 01/07/20 11:47 01/07/20 11:47 01/07/20 11:47 Intake & Output 01/06/20 01/07/20 01/08/20 06:59 06:59 06:59 Intake Total 240 1020 Output Total 4750 3100 Balance -4485 -2080 Weight 87.5 kg 86.8 kg General appearance: PRESENT: no acute distress, cooperative, hard of hearing Head exam: PRESENT: atraumatic, normocephalic Eye exam: PRESENT: EOMI, PERRLA Mouth exam: PRESENT: moist Neck exam: PRESENT: full ROM Respiratory exam: PRESENT: clear to auscultation gabe, symmetrical. ABSENT: tachypnea, unlabored Cardiovascular exam: PRESENT: RRR, +S1, +S2 GI/Abdominal exam: PRESENT: normal bowel sounds, soft. ABSENT: rebound, tenderness Gentrourinary exam: PRESENT: indwelling catheter Musculoskeletal exam: PRESENT: other - quadriplegic Neurological exam: PRESENT: alert, awake, oriented to person, oriented to place, oriented to time, oriented to situation Psychiatric exam: PRESENT: normal mood Skin exam: PRESENT: normal color Results Laboratory Results: WBC 7.1 10^3/uL (4.0-10.5) 01/07/20 07:45 RBC 4.66 10^6/uL (4.35-5.55) 01/07/20 07:45 Hgb 12.0 g/dL (13.5-17.0) L 01/07/20 07:45 Hct 35.5 % (37.9-51.0) L 01/07/20 07:45 MCV 76 fl (80-97) L 01/07/20 07:45 MCH 25.8 pg (27.0-33.4) L 01/07/20 07:45 MCHC 34.0 g/dL (32.0-36.0) 01/07/20 07:45 RDW 15.7 % (11.5-14.0) H 01/07/20 07:45 Plt Count 192 10^3/uL (150-450) 01/07/20 07:45 Lymph % (Auto) Not Reportable 01/07/20 07:45 [place] % (Auto) Not Reportable 01/07/20 07:45 Eos % (Auto) Not Reportable 01/07/20 07:45 Baso % (Auto) Not Reportable 01/07/20 07:45 Absolute Neuts (auto) Not Reportable 01/07/20 07:45 Absolute Lymphs (auto) Not Reportable 01/07/20 07:45 Absolute Monos (auto) Not Reportable 01/07/20 07:45 Absolute Eos (auto) Not Reportable 01/07/20 07:45 Absolute Basos (auto) Not Reportable 01/07/20 07:45 Total Counted 100 01/07/20 07:45 Seg Neutrophils % Not Reportable 01/07/20 07:45 Seg Neuts % (Manual) 86 % (42-78) H 01/07/20 07:45 Band Neutrophils % 1 % (3-5) L 01/06/20 07:18 Lymphocytes % (Manual) 7 % (13-45) L 01/07/20 07:45 Monocytes % (Manual) 7 % (3-13) 01/07/20 07:45 Eosinophils % (Manual) 0 % (0-6) 01/07/20 07:45 Basophils % (Manual) 0 % (0-2) 01/07/20 07:45 Metamyelocytes % 1 % (0-1) 01/06/20 07:18 Abs Neuts (Manual) 6.1 10^3/uL (1.7-8.2) 01/07/20 07:45 Abs Lymphs (Manual) 0.5 10^3/uL (0.5-4.7) 01/07/20 07:45 Abs Monocytes (Manual) 0.5 10^3/uL (0.1-1.4) 01/07/20 07:45 Absolute Eos (Manual) 0.0 10^3/uL (0.0-0.6) 01/07/20 07:45 Abs Basophils (Manual) 0.0 10^3/uL (0.0-0.2) 01/07/20 07:45 Clumped Platelets PRESENT 01/07/20 07:45 Platelet Comment ADEQUATE 01/07/20 07:45 Polychromasia SLIGHT 01/06/20 07:18 Hypochromasia SLIGHT 01/07/20 07:45 Poikilocytosis SLIGHT 01/06/20 07:18 Anisocytosis 1+ 01/07/20 07:45 Microcytosis SLIGHT 01/07/20 07:45 Ovalocytes 1+ 01/07/20 07:45 PT 13.8 SEC (11.4-15.4) 12/31/19 13:00 INR 1.04 12/31/19 13:00 APTT 26.5 SEC (23.5-35.8) 12/31/19 13:00 Carbonic Acid 1.09 mmol/L (1.05-1.35) 12/31/19 16:45 HCO3/H2CO3 Ratio 17:1 12/31/19 16:45 ABG pH 7.34 (7.35-7.45) L 12/31/19 16:45 ABG pCO2 36.1 mmHg (35-45) 12/31/19 16:45 ABG pO2 32.0 mmHg (80-100) L* 12/31/19 16:45 ABG HCO3 19.0 mmol/L (20-24) L 12/31/19 16:45 ABG Total CO2 20.1 mmol/L (23-27) L 12/31/19 16:45 ABG O2 Saturation 58.1 % (94-98) L 12/31/19 16:45 ABG Base Excess -6.0 mmol/L 12/31/19 16:45 FiO2 44% 12/31/19 16:45 Sodium 125.0 mmol/L (137-145) L 01/07/20 07:45 Potassium 3.9 mmol/L (3.6-5.0) 01/07/20 07:45 Chloride 92 mmol/L (98-107) L 01/07/20 07:45 Carbon Dioxide 23 mmol/L (22-30) 01/07/20 07:45 Anion Gap 10 (5-19) 01/07/20 07:45 BUN 9 mg/dL (7-20) 01/07/20 07:45 Creatinine 0.61 mg/dL (0.52-1.25) 01/07/20 07:45 Est GFR ( Amer) > 60 (>60) 01/07/20 07:45 Est GFR (Non-Af Amer) Cancelled 01/05/20 20:43 Est GFR (MDRD) Non-Af > 60 (>60) 01/07/20 07:45 Glucose 121 mg/dL (75-110) H 01/07/20 07:45 POC Glucose 97 mg/dL (70-110) 01/07/20 11:47 Serum Osmolality 262 mOsm/kg (275-301) L 01/05/20 07:45 Lactic Acid 1.9 mmol/L (0.7-2.1) 01/01/20 06:12 Calcium 8.6 mg/dL (8.4-10.2) 01/07/20 07:45 Phosphorus 4.0 mg/dL (2.5-4.5) 01/01/20 06:12 Magnesium 1.9 mg/dL (1.6-2.3) 01/01/20 06:12 Total Bilirubin 0.6 mg/dL (0.2-1.3) 01/07/20 07:45 Direct Bilirubin 0.3 mg/dL (0.0-0.4) 01/07/20 07:45 Neonat Total Bilirubin Not Reportable 01/07/20 07:45 Neonat Direct Bilirubin Not Reportable 01/07/20 07:45 Neonat Indirect Bili Not Reportable 01/07/20 07:45 AST 43 U/L (17-59) 01/07/20 07:45 ALT 9 U/L (<50) 01/07/20 07:45 Alkaline Phosphatase 57 U/L (38-126) 01/07/20 07:45 Creatine Kinase 65 U/L (55-170) 12/31/19 13:00 Troponin I 0.769 ng/mL 12/31/19 19:55 NT-Pro-B Natriuret Pep 7700 pg/mL (<125) H 12/31/19 13:00 Total Protein 6.5 g/dL (6.3-8.2) 01/07/20 07:45 Albumin 3.3 g/dL (3.5-5.0) L 01/07/20 07:45 EGFR Cancelled 01/05/20 20:43 TSH 1.41 uIU/mL (0.47-4.68) 01/04/20 03:52 Cortisol AM Sample 63.70 ug/dL (4.46-22.7) H 01/01/20 06:12 Urine Color RED 01/01/20 04:00 Urine Appearance SLIGHTLY-CLOUDY 01/01/20 04:00 Urine pH 7.0 (5.0-9.0) 01/01/20 04:00 Ur Specific [place] 1.010 01/01/20 04:00 Urine Protein 100 mg/dL (NEGATIVE) H 01/01/20 04:00 Urine Glucose (UA) NEGATIVE mg/dL (NEGATIVE) 01/01/20 04:00 Urine Ketones NEGATIVE mg/dL (NEGATIVE) 01/01/20 04:00 Urine Blood LARGE (NEGATIVE) H 01/01/20 04:00 Urine Nitrite POSITIVE (NEGATIVE) H 12/31/19 13:00 Urine Nitrite (Reflex) NEGATIVE (NEGATIVE) 01/01/20 04:00 Urine Bilirubin NEGATIVE (NEGATIVE) 01/01/20 04:00 Urine Urobilinogen NEGATIVE mg/dL (<2.0) 01/01/20 04:00 Ur Leukocyte Esterase LARGE (NEGATIVE) H 12/31/19 13:00 Leukocyte Esterase Rfl LARGE (NEGATIVE) H 01/01/20 04:00 Urine RBC (Auto) >182 /HPF 01/01/20 04:00 U Hyaline Cast (Auto) 12 /LPF 12/31/19 13:00 Urine Bacteria (Auto) 3+ /HPF 01/01/20 04:00 Urine WBC (Reflex) > 182 /HPF 01/01/20 04:00 Urine WBC Clumps MANY /HPF 01/01/20 04:00 Triple Phos Cryst (Auto) MANY /HPF 12/31/19 13:00 Amorphous Sediment Auto 1+ /HPF 12/31/19 13:00 Urine Mucus (Auto) FEW /LPF 12/31/19 13:00 Urine Osmolality 275 mOsm/kg (300-900) L 01/05/20 20:00 Urine Sodium 56 mmol/L (30-90) 01/05/20 20:00 Urine Ascorbic Acid NEGATIVE (NEGATIVE) 01/01/20 04:00 Time Trough Drawn 1330 01/02/20 13:30 Vancomycin Trough 9.3 ug/mL (5.0-20.0) 01/02/20 13:30 COVID-19 Source NASOPHARYNGEAL 01/02/20 10:40 COVID-19 (DENIZ) NOT DETECTED 01/02/20 10:40 12/31/19 12/31/1912/30/20 13:00 16:55 19:55 Troponin I 1.300 0.899 0.769 NT-Pro-B Natriuret Pep 7700 H Impressions: KUB X-Ray 12/31/19 00:00 IMPRESSION: NO RADIOGRAPHIC EVIDENCE FOR ACUTE ABDOMINAL DISEASE. Chest X-Ray 12/31/19 13:10 IMPRESSION: Patchy bibasilar airspace opacities which are suspicious for infection. A 1.6 cm nodular opacity at the periphery of the right lung base is noted. Recommend radiographic follow-up after appropriate treatment interval to document resolution. Head CT 12/31/19 13:10 IMPRESSION: NORMAL BRAIN CT WITHOUT CONTRAST. EVIDENCE OF ACUTE STROKE: NO. Plan Health Concerns: Hyponatremia- He Needs to be on 1L fluid restriction. Prescribed salt tablets that he should take until repeat labs on thursday Episode of paroxysmal atrial fibrillation due to sepsis - started on eliquis. Would advise follow up with cardio for Holter monitor to see A.fib burden and the need for systemic, terminal system operator anticoagulation UTI - on cefuroxime. Needs 3 more days of Abx Plan of Treatment: Hyponatremia- He Needs to be on 1L fluid restriction. Prescribed salt tablets that he should take until repeat labs on thursday Episode of paroxysmal atrial fibrillation due to sepsis - started on eliquis. Would advise follow up with cardio for Holter monitor to see A.fib burden and the need for systemic, terminal system operator anticoagulation UTI - on cefuroxime. Needs 3 more days of Abx Time Spent: Greater than 30 Minutes Stroke Is this a Stroke Patient?: No Acute Heart Failure Is this a Heart Failure Patient?: No
[2020-01-07 16:58] VITALS: BP 142/84
[2020-01-08] MEDS ORDERED: SODIUM CHLORIDE 1 GM TABLET PO SCH (10:00)
== END 2020-01-07 18:15 | DRG 871 ==
LOC: ER 12:43 → EH 17:01 → 3W 23:19
PROVIDERS: ADMIT Internal Medicine; ATTEND Internal Medicine
PROC: B24BZZ4 Ultrasonography of Heart with Aorta, Transesophageal (ICD-10-PCS; principal; 2020-01-03)
DX: A41.9 Sepsis, unspecified organism (principal); G93.41 Metabolic encephalopathy; G82.54 Quadriplegia, C5-C7 incomplete; I21.A1 Myocardial infarction type 2; T83.511A Infection and inflammatory reaction due to indwelling urethral catheter, initial encounter; E87.1 Hypo-osmolality and hyponatremia; N17.9 Acute kidney failure, unspecified; I47.1 Supraventricular tachycardia; N39.0 Urinary tract infection, site not specified; R65.20 Severe sepsis without septic shock; B96.5 Pseudomonas (aeruginosa) (mallei) (pseudomallei) as the cause of diseases classified elsewhere; B96.4 Proteus (mirabilis) (morganii) as the cause of diseases classified elsewhere; B95.62 Methicillin resistant Staphylococcus aureus infection as the cause of diseases classified elsewhere; I48.0 Paroxysmal atrial fibrillation; E11.22 Type 2 diabetes mellitus with diabetic chronic kidney disease; R31.0 Gross hematuria; E87.6 Hypokalemia; N31.9 Neuromuscular dysfunction of bladder, unspecified; K21.9 Gastro-esophageal reflux disease without esophagitis; D63.1 Anemia in chronic kidney disease; L40.9 Psoriasis, unspecified; I95.9 Hypotension, unspecified; F32.9 Major depressive disorder, single episode, unspecified; B35.1 Tinea unguium; Z98.1 Arthrodesis status; Z03.818 Encounter for observation for suspected exposure to other biological agents ruled out; Z79.01 Long term (current) use of anticoagulants; Z79.4 Long term (current) use of insulin; Z79.82 Long term (current) use of aspirin; Z88.2 Allergy status to sulfonamides; Z79.02 Long term (current) use of antithrombotics/antiplatelets; Z79.899 Other long term (current) drug therapy
CPT/HCPCS: 36415; 70450; 71045; 74018; 80048; 80053; 80202; 81001; 82533; 82550; 82803; 82962; 83605; 83735; 83880; 83930; 83935; 84100; 84300; 84443; 84484; 85025; 85027; 85610; 85730; 87040; 87086; 87088; 87186; 87635; 93005; 93010; 93306; 96365; 96367; 99285; C9803; J0153; J0610; J0690; J0692; J0696; J1630; J1644; J1650; J1815; J2060; J2543; J3370; J3480; J3490; J7030; J7040; J7060

== ENCOUNTER 2020-03-15 11:20 | Emergency (ER) | payer MEDICARE, MEDICAID ==
--- NOTE | 2020-03-15 12:44 | ER Document Report ---
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 EMS reports that the patient tested positive for COVID during routine testing x3 days ago and today had a temperature of 99.8, so the doctor at the facility said to bring the patient to the ED. Per nursing, patient received x2 doses of 500 mg Tylenol PO via facility staff, last dose was around 10 AM. The patient was sent to the emergency room for "acute declining condition and fever". TRAVEL OUTSIDE OF THE [place] IN LAST 30 DAYS: No - Related Data Allergies/Adverse Reactions: Sulfa (Sulfonamide Antibiotics) Allergy (Mild, Verified 12/31/19 15:23) Hives, Itching Past Medical History - General Information source: [facility] Records - Social History Smoking Status: Unknown if Ever Smoked Chew tobacco use (# tins/day): No Smoking Education Provided: No Frequency of alcohol use: None Drug Abuse: None Lives with: Retirement Family History: Reviewed & Not Pertinent Patient has suicidal ideation: No Patient has homicidal ideation: No Pulmonary Medical History: Reports: Hx Pneumonia Endocrine Medical History: Reports: Hx Diabetes Mellitus Type 2 Renal/ Medical History: Reports: Hx End Stage Renal Disease - right kidney, chronic UTI GI Medical History: Reports: Hx Gastroesophageal Reflux Disease Musculoskeletal Medical History: Reports Hx Arthritis, Reports Hx Muscle Weakness, Reports Hx Musculoskeletal Deformity - Contractures to all four extremities, Reports Hx Musculoskeletal Trauma - Right distal femur condyle fractures Skin Medical History: Reports Hx Psoriasis Psychiatric Medical History: Reports: Hx Depression - mild; no suicidal/homicidal ideation Traumatic Medical History: Reports: Hx Spine Fracture - Cervical spine fracture in the 1980s Past Surgical History: Reports: Hx Orthopedic Surgery - Cervical fusion, Hx Urinary Tract Surgery - bladder stent placed and removed - Immunizations Hx Diphtheria, Pertussis, Tetanus Vaccination: Yes Hx Pneumococcal Vaccination: 08/11/13 Review of Systems - Review of Systems Constitutional: See HPI, Fever EENT: No symptoms reported Cardiovascular: No symptoms reported Respiratory: No symptoms reported Gastrointestinal: No symptoms reported Genitourinary: No symptoms reported Male Genitourinary: No symptoms reported Musculoskeletal: No symptoms reported Skin: No symptoms reported Hematologic/Lymphatic: No symptoms reported Neurological/Psychological: No symptoms reported -: Yes All other systems reviewed and negative Physical Exam - Vital signs Vitals: Temp Resp BP Pulse Ox 98.5 F 15 108/68 96 03/15/20 11:19 03/15/20 11:19 03/15/20 11:19 03/15/20 11:19 Interpretation: Normal - General General appearance: Other - Patient is sleeping and snoring - HEENT Head: Normocephalic, Atraumatic Eyes: Normal Pupils: PERRL - Respiratory Respiratory status: No respiratory distress - 95% O2 sat on 2L NC. Chest status: Nontender Breath sounds: Other - Lung sounds are difficult to discern due to the patient's obesity, barrel chest, and snoring. There is no obvious wheezes or rhonchi heard, but it is difficult to tell if there are any rales or decreased areas of air movement. Chest palpation: Normal - Cardiovascular Rhythm: Regular Heart sounds: Normal auscultation Murmur: No Friction rub: No Gallop: None auscultated - Abdominal Inspection: Obese Distension: No distension Bowel sounds: Normal Tenderness: Nontender - Abdomen soft Organomegaly: No organomegaly - Back Back: Normal, Nontender - Extremities General upper extremity: Other - Quadriplegic with spasmic contractions of the upper extremities General lower extremity: Edema - Psychological Associated symptoms: Other - Unable to assess - Skin Skin Temperature: Warm Skin Moisture: Dry Skin Color: Normal Course - Re-evaluation Re-evalutation: 03/15/20 14:55 The patient was evaluated during the global COVID-19 pandemic and that diagnosis was suspected/considered upon their initial presentation. Their evaluation, treatment and testing was consistent with current guidelines for patients who present with complaints or symptoms that may be related to COVID-19. Patient became wide-awake when we begin to change his Vyas cath as the other on e was quite filthy as was the leg bag. On room air his oxygen saturation was 90%, his lungs sound reasonably clear, and he states that his breathing feels fine to him. 03/15/20 15:42 The patient's nurse informed me that his oxygen saturations dropped into the mid 80s on room air while he was asleep and snoring. He is very obese, very short neck, sleeps on his back, has all the appearance of someone who would have obstructive sleep apnea. - Vital Signs Vital signs: Temp Pulse Resp BP Pulse Ox 98.5 F 12 104/63 99 03/15/20 11:20 03/15/20 15:01 03/15/20 15:01 03/15/20 15:01 - Laboratory Result Diagrams: 03/15/20 12:00 03/15/20 12:00 Laboratory results interpreted by me: 03/15/20 03/15/20 03/15/20 12:00 12:00 13:29 RBC 3.64 L Hgb 9.4 L Hct 28.9 L MCV 79 L MCH 25.9 L RDW 16.5 H Plt Count 95 L Stevens % (Auto) 16.6 H Sodium 133.9 L BUN 30 H Lactic Acid 0.5 L C-Reactive Protein 71.8 H Total Protein 6.0 L Albumin 3.1 L Urine Blood Ur Leukocyte Esterase 03/15/20 14:46 RBC Hgb Hct MCV MCH RDW Plt Count Stevens % (Auto) Sodium BUN Lactic Acid C-Reactive Protein Total Protein Albumin Urine Blood SMALL H Ur Leukocyte Esterase LARGE H - Diagnostic Test Radiology reviewed: Image reviewed, Reports reviewed - Chest x-ray shows bilateral infiltrates consistent with COVID-19 pneumonia. - EKG Interpretation by Me EKG shows normal: Sinus rhythm, [place], Intervals, QRS Complexes, ST-T Waves Rate: Normal - 55 Rhythm: NSR Discharge - Discharge Clinical Impression: Lab test positive for detection of COVID-19 virus, Pneumonia due to 2019-nCoV, Chronic indwelling Vyas catheter, Quadriplegia, C5-C7 incomplete, Hypoxemia Condition: Stable Disposition: HOME-SNF (ED ONLY) Instructions: COVID-19 Guidance for Persons Under Investigation Additional Instructions: Your chest x-ray today showed that you do have what appears to be Covid pneumonia. When you are awake, your oxygen saturation runs about 90% and you seem quite comfortable at that level. When you are asleep on your back and snoring, your oxygen saturation drops and require supplemental oxygen. You should receive supplemental oxygen in the [facility] as needed. At this time your illness does not require acute care hospitalization. Your Vyas catheter was changed today because the bag and tubing appeared quite contaminated. The urine that was collected through the new Vyas catheter was sent to the lab for culture. You should follow-up with your [facility]iary doctor for close monitoring over the next several days. I personally performed the services described in the documentation, reviewed and edited the documentation which was dictated to the scribe in my presence, and it accurately records my words and actions.
[2020-03-15 12:47] LABS: ABSOLUTE EOSINOPHILS # (AUTO) 0.1 10^3/uL (0.0-0.6); ABSOLUTE MONOCYTES (AUTO) 0.7 10^3/uL (0.1-1.4); ABSOLUTE NEUT (AUTO) 2.2 10^3/uL (1.7-8.2); BASOPHILS % (AUTO) 0.5 % (0-2); EOSINOPHILS % (AUTO) 1.7 % (0-6); HEMATOCRIT 28.9 % (37.9-51.0); HEMOGLOBIN 9.4 g/dL (13.5-17.0); LYMPHOCYTES % (AUTO) 25.5 % (13-45); MEAN CORPUSCULAR HEMOGLOBIN 25.9 pg (27.0-33.4); MEAN CORPUSCULAR HGB CONC 32.6 g/dL (32.0-36.0); MEAN CORPUSCULAR VOLUME 79 fl (80-97); MONOCYTES % (AUTO) 16.6 % (3-13); RED BLOOD COUNT 3.64 10^6/uL (4.35-5.55); RED CELL DISTRIBUTION WIDTH 16.5 % (11.5-14.0); SEGMENTED NEUTROPHILS % (AUTO) 55.7 % (42-78); TOTAL CELLS COUNTED % (AUTO) 100 %
--- NOTE | 2020-03-15 12:54 | RADIOLOGY REPORT (SQ) ---
EXAM DESCRIPTION: CHEST SINGLE VIEW IMAGES COMPLETED DATE/TIME: 03/15/2020 12:43 pm REASON FOR STUDY: covid +, fever COMPARISON: 12/31/2019 EXAM PARAMETERS: NUMBER OF VIEWS: One view. TECHNIQUE: Single frontal radiographic view of the chest acquired. RADIATION DOSE: NA LIMITATIONS: None. FINDINGS: LUNGS AND PLEURA: Increasing parenchymal opacities in the lungs. Low lung volumes. MEDIASTINUM AND HILAR STRUCTURES: No masses. Contour normal. HEART AND VASCULAR STRUCTURES: Heart normal in size. Normal vasculature. BONES: No acute findings. HARDWARE: None in the chest. OTHER: No other significant finding. IMPRESSION: Worsening appearance of the chest with low lung volumes and increased opacities. Consis tent covid 19. TECHNICAL DOCUMENTATION: JOB ID: [id number] 2010 [employer]- All Rights Reserved Reading location - IP/workstation name: [email or web address]
[2020-03-15 13:04] LABS: ALBUMIN 3.1 g/dL (3.5-5.0); ALKALINE PHOSPHATASE 54 U/L (38-126); ANION GAP 8 (5-19); ASPARTATE AMINO TRANSFERASE 21 U/L (17-59); BILIRUBIN,DIRECT 0.2 mg/dL (0.0-0.4); BILIRUBIN,TOTAL 0.4 mg/dL (0.2-1.3); BLOOD UREA NITROGEN 30 mg/dL (7-20); C-REACTIVE PROTEIN 71.8 mg/L (<10.0); CALCIUM 8.5 mg/dL (8.4-10.2); CARBON DIOXIDE 23 mmol/L (22-30); CHLORIDE 103 mmol/L (98-107); GLUCOSE 86 mg/dL (75-110); POTASSIUM 3.9 mmol/L (3.6-5.0)
[2020-03-15 13:12] LABS: PLATELET COUNT 95 10^3/uL (150-450)
[2020-03-15 13:20] LABS: CREATINE KINASE MB 0.47 ng/mL (<4.55)
[2020-03-15 13:22] LABS: TROPONIN I < 0.012 ng/mL
--- NOTE | 2020-03-15 14:38 | EKG REPORT ---
SEVERITY:- NORMAL ECG - SINUS RHYTHM : Confirmed by: Tl Cam MD 15-Mar-2020 14:38:22
[2020-03-15 15:11] VITALS: BP 104/63
[2020-03-15 15:41] LABS: APPEARANCE,URINE SLIGHTLY-CLOUDY; BILIRUBIN,URINE NEGATIVE (NEGATIVE); COLOR,URINE STRAW; GLUCOSE, URINE NEGATIVE (NEGATIVE); KETONES,URINE NEGATIVE (NEGATIVE); LEUKOCYTE ESTERASE,URINE LARGE (NEGATIVE); NITRITE,URINE NEGATIVE (NEGATIVE); PROTEIN,URINE NEGATIVE (NEGATIVE); URINE SPECIFIC GRAVITY 1.005; UROBILINOGEN,URINE NEGATIVE mg/dL (<2.0)
== END 2020-03-15 15:45 ==
LOC: ER 11:20
DX: U07.1 COVID-19 (principal); J12.89 Other viral pneumonia; E66.9 Obesity, unspecified; R06.83 Snoring; R50.9 Fever, unspecified; R09.02 Hypoxemia; G82.54 Quadriplegia, C5-C7 incomplete; E11.9 Type 2 diabetes mellitus without complications; Z88.2 Allergy status to sulfonamides
CPT/HCPCS: 36415; 51702; 71045; 80053; 81001; 82553; 82728; 83605; 83615; 84484; 85025; 85379; 86140; 87086; 87088; 87186; 93005; 93010; 99285

== ENCOUNTER → 2020-05-11 | Outpatient (CLI) | payer MEDICARE, MEDICAID ==
--- NOTE | 2020-05-11 17:14 | RADIOLOGY REPORT (SQ) ---
EXAM DESCRIPTION: CT CHEST WITH IMAGES COMPLETED DATE/TIME: 05/11/2020 1:39 pm REASON FOR STUDY: (R91.8)OTHER NONSPECIFIC ABNORMAL FINDING OF LUNG FIELD(R93.89)ABNORMAL FIN R93.89 ABNORMAL FINDINGS ON DX IMAGING OF OTH BODY STRUCTURE R91.8 OTHER NONSPECIFIC ABNORMAL FINDING OF LUNG FIELD abnormal chest x-ray. Patient had COVID pneumonia in February 2020. COMPARISON: CT chest, 05/27/2014. Chest radiograph 03/15/2020. Chest radiograph 12/31/2019. TECHNIQUE: CT scan of the chest performed using helical scanning technique with dynamic intravenous contrast injection. Images reviewed with lung, soft tissue and bone windows. Reconstructed coronal and sagittal MPR and MIP images reviewed. All images stored on PACS. All CT scanners at this facility use dose modulation, iterative reconstruction, and/or weight based d osing when appropriate to reduce radiation dose to as low as reasonably achievable (ALARA). [facility]: Dose Right [facility]: CareDose [facility]: Dose Right [facility]: Teradose 4D [facility]: WallStrip CONTRAST TYPE AND DOSE: contrast/concentration: Isovue 350.00 mmol/ml; Total Contrast Delivered: 80. 0 ml; Total Saline Delivered: 24.6 ml RENAL FUNCTION: GFR > 60. RADIATION DOSE: CT Rad equipment meets quality standard of care and radiation dose reduction techniq ues were employed. CTDIvol: 15.9 mGy. DLP: 658 mGy-cm. . LIMITATIONS: None. FINDINGS: LUNGS AND PLEURA: The trachea has normal caliber and appearance. No bronchial wall thicke toi. Mild bronchiectasis in the lower lobes. Background severe pulmonary emphysema. Right apical pleural and parenchymal scarring is stable from 2015. No focal consolidation. Pleural scarring at t he left lung base unchanged. No suspicious pulmonary nodules. HILAR AND MEDIASTINAL STRUCTURES: No identified masses or abnormal nodes. HEART AND VASCULAR STRUCTURES: No aneurysm or dissection. No central pulmonary emboli. No pericardi al effusion. HARDWARE: None in the chest. UPPER ABDOMEN: Asymmetric atrophy of the right kidney unchanged from prior. THYROID AND OTHER SOFT TISSUES: Spondylosis and degenerative disc disease in the thoracic and lumbar spine. No suspicious bone lesions. BONES: No significant finding. OTHER: No other significant finding. IMPRESSION: 1. No acute pulmonary disease. No focal consolidation or significant ground-glass attenuation. 2. Severe pulmonary emphysema, with pleural and parenchymal scarring, stable since May 2014. 3. Asymmetric atrophy right kidney unchanged from 2015. TECHNICAL DOCUMENTATION: JOB ID: [id number] Quality ID # [id number]: Final reports with documentation of one or more dose reduction techniques (e.g., Au tomated exposure control, adjustment of the mA and/or kV according to patient size, use of iterative reconstruction technique) 2010 [employer]- All Rights Reserved Reading location - IP/workstation name: [email or web address]
== END ==
LOC: RAD 13:50
PROVIDERS: ATTEND Family Medicine
DX: R93.89 Abnormal findings on diagnostic imaging of other specified body structures (principal); R91.8 Other nonspecific abnormal finding of lung field; J43.9 Emphysema, unspecified; N26.1 Atrophy of kidney (terminal)
CPT/HCPCS: 71260; 82565